=== PATIENT | male | born 1970 | race American Indian/Alaskan Native ===

== ENCOUNTER 2019-07-06 09:26 | Emergency (ER) | payer OTHER ==
[2019-07-06 09:52] VITALS: BP 139/86
--- NOTE | 2019-07-06 13:31 | XRay Report ---
CHEST 2 VIEWS INDICATION: productive cough, fever 2 weeks. COMPARISON: None. FINDINGS: Support devices: None. Heart: Within normal limits. Lungs/Pleura: No acute air space or interstitial disease. No significant pleural effusion. IMPRESSION: No acute findings. Signer Name: Gus Castano MD Signed: 07/06/2019 1:27 PM Workstation Name: [id number]
--- NOTE | 2019-07-06 14:34 | Emergency Department Report ---
- General Chief Complaint: Upper Respiratory Infection Stated Complaint: FEVER/COUGH Time Seen by Provider: 07/06/19 11:37 Source: patient Mode of arrival: Ambulatory Limitations: No Limitations - History of Present Illness Initial Comments: patient is a 48-year-old male resents to the ED with complaints of a productive cough that began 2 weeks ago. He has associated mucus production. He states that he also has a fever. He states his temperature was 102 last night. He has associated nasal and chest congestion. He denies any sore throat, ear pain, shortness breath, chest pain. he states he took advil today prior to arriving to the emergency room. he states he has been doing home remedies without much relief. he denies any past medical history or allergies medications - Related Data Previous Rx's Medication Instructions Recorded Last Taken Type Azithromycin [Zithromax TAB] 250 mg PO QDAY 5 Days #6 tablet 07/06/19 Unknown Rx Benzonatate [Tessalon Perles] 100 mg PO Q8HR PRN #14 capsule 07/06/19 Unknown Rx Prednisone [predniSONE 10 mg 10 mg PO .TAPER #1 tab.ds.pk 07/06/19 Unknown Rx (6-Day Pack, 21 Tabs)] Allergies Allergy/AdvReac Type Severity Reaction Status Date / Time No Known Allergies Allergy Unverified 07/06/19 09:47 ED Review of Systems ROS: Stated complaint: FEVER/COUGH Other details as noted in HPI Comment: All other systems reviewed and negative ED Past Medical Hx - Past Medical History Previous Medical History?: No - Surgical History Hx Cholecystectomy: Yes - Social History Smoking Status: Never Smoker Substance Use Type: None - Medications Home Medications: Home Medications Medication Instructions Recorded Confirmed Last Taken Type Azithromycin [Zithromax TAB] 250 mg PO QDAY 5 Days #6 tablet 07/06/19 Unknown Rx Benzonatate [Tessalon Perles] 100 mg PO Q8HR PRN #14 capsule 07/06/19 Unknown Rx Prednisone [predniSONE 10 mg 10 mg PO .TAPER #1 tab.ds.pk 07/06/19 Unknown Rx (6-Day Pack, 21 Tabs)] ED Physical Exam - General Limitations: No Limitations General appearance: alert, in no apparent distress - Head Head exam: Present: atraumatic, normocephalic - Eye Eye exam: Present: normal appearance - ENT ENT exam: Present: normal orophraynx, mucous membranes moist, TM's normal bilaterally, normal external ear exam, other (normal turbaintes bilaterally) - Respiratory Respiratory exam: Present: decreased breath sounds (slightly decreased right lung base). Absent: respiratory distress, wheezes, rales, rhonchi, stridor, chest wall tenderness, accessory muscle use, prolonged expiratory - Cardiovascular Cardiovascular Exam: Present: regular rate, normal rhythm, normal heart sounds. Absent: systolic murmur, diastolic murmur, rubs, gallop - Neurological Exam Neurological exam: Present: alert, oriented X3 - Psychiatric Psychiatric exam: Present: normal affect, normal mood - Skin Skin exam: Present: warm, dry, intact ED Course Vital Signs 07/06/19 09:50 Temperature 99.1 F Pulse Rate 72 Respiratory 18 Rate Blood Pressure 139/86 [Right] O2 Sat by Pulse 98 Oximetry ED Medical Decision Making - Radiology Data Radiology results: report reviewed CHEST 2 VIEWS INDICATION: productive cough, fever 2 weeks. COMPARISON: None. FINDINGS: Support devices: None. Heart: Within normal limits. Lungs/Pleura: No acute air space or interstitial disease. No significant pleural effusion. IMPRESSION: No acute findings. Signer Name: Gus Castano MD Signed: 07/06/2019 1:27 PM Workstation Name: [id number] Transcribed By: ES Dictated By: Gus Castano MD Electronically Authenticated By: Gus Castano MD Signed Date/Time: 07/06/19 132 DD/ 1326 TD/TT: - Medical Decision Making patient is a 48-year-old male resents to the ED with complaints of a productive cough that began 2 weeks ago. He has associated mucus production. He states that he also has a fever. He states his temperature was 102 last night. He has associated nasal and chest congestion. He denies any sore throat, ear pain, shortness breath, chest pain. he states he took advil today prior to arriving to the emergency room. he states he has been doing home remedies without much relief. he denies any past medical history or allergies medications. VSS. on exam: slightly decreased breath sounds right lung base. CXR: No acute findings. PERC criteria negative for PE. Given that he has had a productive cough and fever for 2 weeks and has slightly decreased breath sounds in the right lung base will treat patient for an acute bronchitis. Given prescription for azithromycin, prednisone, and tessalon perles. advised pt to take medication as prescribed. Please increase your fluid intake over the next several days. Follow-up with a primary care doctor in the next 2-3 days. Return to the emergency room for any new or worsening symptoms. - Differential Diagnosis PNA, URI, acute bronchitis, influenza, viral syndrome, sinusitis Critical care attestation.: If time is entered above; I have spent that time in minutes in the direct care of this critically ill patient, excluding procedure time. ED Disposition Clinical Impression: Acute bronchitis Qualifiers: Bronchitis organism: unspecified organism Qualified Code(s): J20.9 - Acute bronchitis, unspecified Disposition: DC- TO HOME OR SELFCARE Is pt being admited?: No Does the pt Need Aspirin: No Condition: Stable Instructions: Acute Bronchitis (ED) Additional Instructions: Take medication as prescribed. Please increase your fluid intake over the next several days. Follow-up with a primary care doctor in the next 2-3 days. Return to the emergency room for any new or worsening symptoms. Prescriptions: Prednisone [predniSONE 10 mg (6-Day Pack, 21 Tabs)] 10 mg PO .TAPER #1 tab.ds.pk Benzonatate [Tessalon Perles] 100 mg PO Q8HR PRN #14 capsule PRN Reason: cough Azithromycin [Zithromax TAB] 250 mg PO QDAY 5 Days #6 tablet Referrals: DEMETRIUS MCGEE MD [Staff Physician] - 2-3 Days [facility] [Outside] - 2-3 Days [facility] [Outside] - 2-3 Days Time of Disposition: 14:34 Print Language: TURKISH
== END 2019-07-06 15:02 | disposition home or self-care (01) ==
LOC: ED 09:26
DX: J20.8 Acute bronchitis due to other specified organisms (principal); Z90.49 Acquired absence of other specified parts of digestive tract; Z79.899 Other long term (current) drug therapy
CPT/HCPCS: 71046

== ENCOUNTER 2019-07-10 | Emergency (ER) | payer OTHER ==
[2019-07-10] MEDS ORDERED: ONDANSETRON 4 MG/2 ML INJ IV ONE (01:46)
[2019-07-10] MEDS ORDERED: MORPHINE 4 MG/1 ML INJ IV ONE ×2 (01:46→03:13)
--- NOTE | 2019-07-10 01:49 | Emergency Department Report ---
ED Chest Pain HPI - General Chief Complaint: Sickle Cell Crisis Stated Complaint: CHEST/SICKLE CELL PAIN Time Seen by Provider: 07/10/19 01:40 Source: patient Mode of arrival: Ambulatory Limitations: No Limitations - History of Present Illness Initial Comments: Mr. Mendoza is a 48 yo male with hx of sickle cell trait and alpha thalassemia "" who presents with chest pain for the past 3 hours. Sharp pain central. Severe. He feels that pain is caused by the cold temperature. He requests a shot of morphine. He was seen by my colleague recently for productive cough for the past 2 weeks. He was prescribed azithromycin, prednisone and tessalon daniela es. Also has lower back pain. He has infrequent sickle cell pain episodes. "They just come out of the blue." Complaint: chest pain -: Gradual, hour(s) (3) Onset: during rest Pain Location: substernal, left chest Severity: severe Quality: aching, sharp Consistency: constant Improves With: nothing Worsens With: nothing Context: recent illness - Related Data Previous Rx's Medication Instructions Recorded Last Taken Type Azithromycin [Zithromax TAB] 250 mg PO QDAY 5 Days #6 tablet 07/06/19 Unknown Rx Benzonatate [Tessalon Perles] 100 mg PO Q8HR PRN #14 capsule 07/06/19 Unknown Rx Prednisone [predniSONE 10 mg 10 mg PO .TAPER #1 tab.ds.pk 07/06/19 Unknown Rx (6-Day Pack, 21 Tabs)] oxyCODONE /ACETAMINOPHEN [Percocet 1 tab PO Q6HR PRN #10 tablet 07/10/19 Unknown Rx 5/325] Allergies Allergy/AdvReac Type Severity Reaction Status Date / Time No Known Allergies Allergy Verified 07/10/19 03:27 Heart Score - HEART Score History: Slightly suspicious EKG: Normal Age: < 45 Risk factors: No known risk factors Troponin: < normal limit HEART Score: 0 ED Review of Systems ROS: Stated complaint: CHEST/SICKLE CELL PAIN Other details as noted in HPI Comment: All other systems reviewed and negative Constitutional: denies: fever, malaise Respiratory: cough Cardiovascular: chest pain ED Past Medical Hx - Past Medical History Previous Medical History?: Yes Hx Sickle Cell Disease: Yes - Surgical History Past Surgical History?: Yes Hx Cholecystectomy: Yes - Social History Smoking Status: Never Smoker Substance Use Type: None - Medications Home Medications: Home Medications Medication Instructions Recorded Confirmed Last Taken Type Azithromycin [Zithromax TAB] 250 mg PO QDAY 5 Days #6 tablet 07/06/19 Unknown Rx Benzonatate [Tessalon Perles] 100 mg PO Q8HR PRN #14 capsule 07/06/19 Unknown Rx Prednisone [predniSONE 10 mg 10 mg PO .TAPER #1 tab.ds.pk 07/06/19 Unknown Rx (6-Day Pack, 21 Tabs)] oxyCODONE /ACETAMINOPHEN [Percocet 1 tab PO Q6HR PRN #10 tablet 07/10/19 Unknown Rx 5/325] ED Physical Exam - General Limitations: No Limitations General appearance: alert, other (writhing around in the bed in pain) - Head Head exam: Present: atraumatic, normocephalic - Eye Eye exam: Present: normal appearance - ENT ENT exam: Present: mucous membranes moist - Neck Neck exam: Present: normal inspection, full ROM - Respiratory Respiratory exam: Present: normal lung sounds bilaterally. Absent: respiratory distress, wheezes, rales, rhonchi - Cardiovascular Cardiovascular Exam: Present: regular rate, normal rhythm. Absent: systolic murmur, diastolic murmur, rubs, gallop - GI/Abdominal GI/Abdominal exam: Present: soft, normal bowel sounds. Absent: distended, tenderness, guarding, rebound - Rectal Rectal exam: Present: deferred - Extremities Exam Extremities exam: Present: normal inspection - Neurological Exam Neurological exam: Present: alert, oriented X3 - Psychiatric Psychiatric exam: Present: normal affect, normal mood - Skin Skin exam: Present: warm, dry, intact, normal color. Absent: rash ED Course Vital Signs 07/10/19 07/10/19 07/10/19 00:36 02:24 03:00 Temperature 97.7 F Pulse Rate 73 56 L 71 Respiratory 18 13 14 Rate Blood Pressure 165/106 135/92 O2 Sat by Pulse 96 99 96 Oximetry ED Medical Decision Making - Lab Data Result diagrams: 07/10/19 01:11 07/10/19 01:54 - EKG Data EKG shows normal: sinus rhythm, axis, intervals, QRS complexes, ST-T waves Rate: bradycardia - EKG Data Interpretation: normal EKG - Medical Decision Making Mr. Mendoza is a 48 yo with hx of sickle cell disease Hgb presumably alpha thalassemia who presents with persistent sharp chest pain and back pain 10/10. Normal EKG and troponin. Appears to be sickle cell disease pain crisis. Labs notable for mild anemia with elevated reticulocyte count. Mr. Mendoza was provided IV opioid medication and IVF. He declined hospital admission. Dc'd home rx: percocet I do not suspect ACS PE PNA after w/u performed today Critical care attestation.: If time is entered above; I have spent that time in minutes in the direct care of this critically ill patient, excluding procedure time. ED Disposition Clinical Impression: Sickle cell trait with coexistent alpha-thalassemia, Sickle cell pain crisis Disposition: DC- TO HOME OR SELFCARE Is pt being admited?: No Does the pt Need Aspirin: No Condition: Stable Instructions: Chest Pain (ED) Prescriptions: oxyCODONE /ACETAMINOPHEN [Percocet 5/325] 1 tab PO Q6HR PRN #10 tablet PRN Reason: Pain Referrals: DEMETRIUS MCGEE MD [Staff Physician] - 3-5 Days Forms: Work/School Release Form(ED)
[2019-07-10 01:52] LABS: Hematocrit 31.3 % (35.5-45.6); Hemoglobin 10.9 gm/dl (11.8-15.2); Mean Corpuscular HGB Conc 35 % (32-34); Mean Corpuscular Volume 86 fl (84-94); Red Blood Count 3.65 M/mm3 (3.65-5.03); Red Cell Distribution Width 17.7 % (13.2-15.2)
[2019-07-10 02:40] LABS: BUN/Creatinine Ratio 23; Blood Urea Nitrogen 16 mg/dL (9-20); Hemolysis Index 38
[2019-07-10] MEDS ORDERED: HYDROmorphone 1 MG/1 ML INJ IV ONE (03:23)
[2019-07-10 03:54] LABS: Basophils % (Manual) 0 % (0.0-1.8); Eosinophils % (Manual) 0 % (0.0-4.3); Total Cells Counted 100
[2019-07-10 03:55] LABS: Schistocytes Few; Target Cells 1+
[2019-07-10 03:56] LABS: Platelet Estimate Consistent w Auto
[2019-07-10] MEDS ORDERED: D5W/0.2% NACL 1,000 ML IV SCH (04:00)
[2019-07-10 04:15] LABS: Platelet Count 259 K/mm3 (140-440)
[2019-07-10 06:35] VITALS: BP 144/85
== END 2019-07-10 06:34 | disposition home or self-care (01) ==
LOC: ED
DX: D57.419 Sickle-cell thalassemia, unspecified, with crisis (principal); D57.00 Hb-SS disease with crisis, unspecified; Z90.49 Acquired absence of other specified parts of digestive tract; Z79.899 Other long term (current) drug therapy
CPT/HCPCS: 36415; 80048; 84484; 85007; 85025; 85045; 93005; 93010; 96374; 96375; 96376; 99284; J1170; J2270; J2405

== ENCOUNTER 2019-07-11 09:33 | Inpatient (IN) | payer OTHER ==
--- NOTE | 2019-07-11 10:30 | XRay Report ---
CHEST 2 VIEWS INDICATION / CLINICAL INFORMATION: Chest Pain. COMPARISON: 07/06/2019 FINDINGS: SUPPORT DEVICES: None. HEART / MEDIASTINUM: No significant abnormality. LUNGS / PLEURA: There has been development of bilateral mid and lower lung hazy groundglass opacities . No pneumothorax. ADDITIONAL FINDINGS: Unchanged chronic osseous findings in the spine secondary to sickle cell disease . IMPRESSION: 1. Interval development of bilateral mid and lower lung hazy opacities likely indicating developing a typical infectious or inflammatory process. Signer Name: Kavon Nelson MD Signed: 07/11/2019 10:25 AM Workstation Name: [id number]
[2019-07-11 10:59] LABS: Hemoglobin 9.6 gm/dl (11.8-15.2); Mean Corpuscular HGB Conc 36 % (32-34); Mean Corpuscular Volume 83 fl (84-94); Red Blood Count 3.26 M/mm3 (3.65-5.03); Red Cell Distribution Width 18.7 % (13.2-15.2)
[2019-07-11] MEDS ORDERED: SODIUM CHLORIDE 0.9% 1000 ML 1,000 ML IV ONE (11:25)
[2019-07-11 11:26] LABS: BUN/Creatinine Ratio 36; Blood Urea Nitrogen 29 mg/dL (9-20); Calcium 8.9 mg/dL (8.4-10.2); Hemolysis Index 90
[2019-07-11] MEDS ORDERED: SODIUM CHLORIDE 0.9% 1000 ML IV SOLN IV ONE (11:30)
--- NOTE | 2019-07-11 11:33 | Emergency Department Report ---
ED Chest Pain HPI - General Chief Complaint: Chest Pain Stated Complaint: CHEST PAIN Time Seen by Provider: 07/11/19 11:23 Source: patient Mode of arrival: Wheelchair Limitations: No Limitations - History of Present Illness Initial Comments: 48 yo W male comes to ER with chest pain, cough and weakness. The chest pain is sharp and radiates to the back. Endorses chills. No fever. States he does not look at color of sputum. He did take antibiotics given at prior visit but has gotten worse over the last 2 days. Denies SOB. No abd pain. No nausea, vomiting or diarrhea. He was here yesterday and sent home. He also went to [facility] and was d/c. He was here last week -07/06-for URI as well. PCP none PMH SSD- last crisis 15 y ago Rx none mom and dad alive and well denies cig/etoh/drugs BP elevated on admit- denies history of HTN Sat on admit noted- NC for Sat > 92. MD Complaint: chest pain -: Gradual, days(s) Onset: during rest, during exertion Pain Location: substernal Pain Radiation: other (to back ) Severity scale (0 -10): 10 Quality: sharp Consistency: constant Improves With: nothing Worsens With: nothing Other Symptoms: cough, other (chills) Treatments Prior to Arrival: none Aspirin use within the Past 7 Days: (0) No - Related Data On Oral Contraceptives: No Previous Rx's Medication Instructions Recorded Last Taken Type Azithromycin [Zithromax TAB] 250 mg PO QDAY 5 Days #6 tablet 07/06/19 Unknown Rx Benzonatate [Tessalon Perles] 100 mg PO Q8HR PRN #14 capsule 07/06/19 Unknown Rx Prednisone [predniSONE 10 mg 10 mg PO .TAPER #1 tab.ds.pk 07/06/19 Unknown Rx (6-Day Pack, 21 Tabs)] oxyCODONE /ACETAMINOPHEN [Percocet 1 tab PO Q6HR PRN #10 tablet 07/10/19 Unknown Rx 5/325] Allergies Allergy/AdvReac Type Severity Reaction Status Date / Time No Known Allergies Allergy Verified 07/10/19 03:27 Heart Score - HEART Score History: Slightly suspicious EKG: Normal Age: 45-65 Risk factors: No known risk factors Troponin: 1-3x normal limit HEART Score: 2 ED Review of Systems ROS: Stated complaint: CHEST PAIN Other details as noted in HPI Comment: All other systems reviewed and negative ED Past Medical Hx - Past Medical History Previous Medical History?: Yes Hx Hypertension: No Hx CVA: No Hx Heart Attack/AMI: No Hx Congestive Heart Failure: No Hx Diabetes: No Hx Deep Vein Thrombosis: No Hx Pulmonary Embolism: No Hx GERD: No Hx Liver Disease: No Hx Renal Disease: No Hx of Cancer: No Hx Sickle Cell Disease: Yes Hx Arthritis: No Hx Headaches / Migraines: No Hx Seizures: No Hx Kidney Stones: No Hx Psychiatric Treatment: No Hx Asthma: No Hx COPD: No Hx Tuberculosis: No Hx Dementia: No Hx HIV: No - Surgical History Past Surgical History?: Yes Hx Coronary Stent: No Hx Open Heart Surgery: No Hx Pacemaker: No Hx Internal Defibrillator: No Hx Cholecystectomy: Yes Hx Appendectomy: No Hx Breast Surgery: No - Family History Family history: no significant - Social History Smoking Status: Never Smoker Substance Use Type: None - Medications Home Medications: Home Medications Medication Instructions Recorded Confirmed Last Taken Type Azithromycin [Zithromax TAB] 250 mg PO QDAY 5 Days #6 tablet 07/06/19 07/11/19 Unknown Rx Benzonatate [Tessalon Perles] 100 mg PO Q8HR PRN #14 capsule 07/06/19 07/11/19 Unknown Rx Prednisone [predniSONE 10 mg 10 mg PO .TAPER #1 tab.ds.pk 07/06/19 07/11/19 Unknown Rx (6-Day Pack, 21 Tabs)] oxyCODONE /ACETAMINOPHEN [Percocet 1 tab PO Q6HR PRN #10 tablet 07/10/19 07/11/19 Unknown Rx 5/325] ED Physical Exam - General Limitations: No Limitations General appearance: alert, in no apparent distress - Head Head exam: Present: atraumatic, normocephalic - Eye Eye exam: Present: normal appearance - ENT ENT exam: Present: mucous membranes moist - Neck Neck exam: Present: normal inspection - Respiratory Respiratory exam: Present: normal lung sounds bilaterally, wheezes (mild lower lobes), rhonchi (clear with cough). Absent: respiratory distress, stridor, chest wall tenderness, accessory muscle use, decreased breath sounds, prolonged expiratory - Cardiovascular Cardiovascular Exam: Present: regular rate, normal rhythm, tachycardia. Absent: systolic murmur, diastolic murmur, rubs, gallop - GI/Abdominal GI/Abdominal exam: Present: soft, normal bowel sounds - Rectal Rectal exam: Present: deferred - Extremities Exam Extremities exam: Present: normal inspection - Back Exam Back exam: Present: normal inspection - Neurological Exam Neurological exam: Present: alert, oriented X3 - Psychiatric Psychiatric exam: Present: normal affect, flat affect - Skin Skin exam: Present: warm, dry, intact, pallor. Absent: rash ED Course Vital Signs 07/11/19 07/11/19 07/11/19 09:40 11:46 12:00 Temperature 98.1 F Pulse Rate 79 81 86 Respiratory 22 29 H 40 H Rate Blood Pressure 157/109 157/115 Blood Pressure 167/102 [Right] O2 Sat by Pulse 89 83 L 81 L Oximetry 07/11/19 07/11/19 07/11/19 12:16 12:17 12:18 Temperature 98.6 F Pulse Rate 78 Respiratory 37 H 30 H Rate Blood Pressure 157/115 Blood Pressure [Right] O2 Sat by Pulse 94 6 L Oximetry 07/11/19 07/11/19 07/11/19 12:46 13:46 14:09 Temperature Pulse Rate 86 98 H Respiratory 35 H 22 26 H Rate Blood Pressure 157/115 156/120 Blood Pressure [Right] O2 Sat by Pulse 92 98 Oximetry JONAS score - Jonas Score Age > 65: (0) No Aspirin use within the Past 7 Days: (0) No 3 or more CAD Risk Factors: (0) No 2 or more Angina events in past 24 hrs: (0) No Known CAD with more than 50% Stenosis: (0) No Elevated Cardiac Markers: (1) Yes ST Deviation Greater than 0.5mm: (0) No JONAS Score: 1 ED Medical Decision Making - Lab Data Result diagrams: 07/11/19 09:58 07/11/19 12:15 - EKG Data -: EKG Interpreted by Wy Rate: tachycardia - EKG Data Interpretation: no acute changes - Radiology Data Radiology results: report reviewed, image reviewed - Medical Decision Making Vital Signs 07/11/19 07/11/19 07/11/19 09:40 11:46 12:00 Temperature 98.1 F Pulse Rate 79 81 86 Respiratory 22 29 H 40 H Rate Blood Pressure 157/109 157/115 Blood Pressure 167/102 [Right] O2 Sat by Pulse 89 83 L 81 L Oximetry 07/11/19 07/11/19 12:17 12:18 Temperature 98.6 F Pulse Rate Respiratory 30 H Rate Blood Pressure Blood Pressure [Right] O2 Sat by Pulse 6 L Oximetry Lab Results 07/11/19 07/11/19 Range/Units 09:58 09:58 WBC 15.9 H (4.5-11.0) K/mm3 RBC 3.26 L (3.65-5.03) M/mm3 Hgb 9.6 L (11.8-15.2) gm/dl Hct 27.0 L (35.5-45.6) % MCV 83 L (84-94) fl MCH 29 (28-32) pg MCHC 36 H (32-34) % RDW 18.7 H (13.2-15.2) % Plt Count 158 (140-440) K/mm3 Add Manual Diff Complete Total Counted 100 Seg Neuts % (Manual) 71.0 H (40.0-70.0) % Band Neutrophils % 1.0 % Lymphocytes % (Manual) 19.0 (13.4-35.0) % Reactive Lymphs % (Man) 0 % Monocytes % (Manual) 6.0 (0.0-7.3) % Eosinophils % (Manual) 0 (0.0-4.3) % Basophils % (Manual) 0 (0.0-1.8) % Metamyelocytes % 3.0 % Myelocytes % 0 % Promyelocytes % 0 % Blast Cells % 0 % Nucleated RBC % 73.0 H (0.0-0.9) % Seg Neutrophils # Man 13.3 H (1.8-7.7) K/mm3 Band Neutrophils # 0.2 K/mm3 Lymphocytes # (Manual) 3.6 (1.2-5.4) K/mm3 Abs React Lymphs (Man) 0.0 K/mm3 Monocytes # (Manual) 1.1 H (0.0-0.8) K/mm3 Eosinophils # (Manual) 0.0 (0.0-0.4) K/mm3 Basophils # (Manual) 0.0 (0.0-0.1) K/mm3 Metamyelocytes # 0.6 K/mm3 Myelocytes # 0.0 K/mm3 Promyelocytes # 0.0 K/mm3 Blast Cells # 0.0 K/mm3 Pathologist Review Not Reportable WBC Morphology Not Reportable Hypersegmented Neuts Not Reportable Hyposegmented Neuts Not Reportable Hypogranular Neuts Not Reportable Smudge Cells Not Reportable Toxic Granulation Not Reportable Toxic Vacuolation Not Reportable Dohle Bodies Not Reportable Pelger-Huet Anomaly Not Reportable [place] Rods Not Reportable Platelet Estimate Consistent w auto Clumped Platelets Not Reportable Plt Clumps, EDTA Not Reportable Large Platelets Not Reportable Giant Platelets Rare Platelet Satelliting Not Reportable Plt Morphology Comment Not Reportable RBC Morphology Not Reportable Dimorphic RBCs Not Reportable Polychromasia Few Hypochromasia Not Reportable Poikilocytosis 2+ Anisocytosis 2+ Microcytosis Few Macrocytosis Not Reportable Spherocytes Not Reportable Pappenheimer Bodies Not Reportable Sickle Cells [employer] Target Cells 1+ Tear Drop Cells Not Reportable Ovalocytes Not Reportable Helmet Cells Not Reportable [place] Bodies Not Reportable [place] Rings Not Reportable Trey Cells Not Reportable Bite Cells Not Reportable Crenated Cell Not Reportable Elliptocytes Not Reportable Acanthocytes (Spur) Not Reportable Rouleaux Not Reportable Hemoglobin C Crystals Not Reportable Schistocytes Few Malaria parasites Not Reportable Zeke Bodies Not Reportable Hem Pathologist Commnt No Sodium 137 (137-145) mmol/L Potassium 4.0 (3.6-5.0) mmol/L Chloride 100.0 (98-107) mmol/L Carbon Dioxide 19 L D (22-30) mmol/L Anion Gap 22 mmol/L BUN 29 H (9-20) mg/dL Creatinine 0.8 (0.8-1.5) mg/dL Estimated GFR > 60 ml/min BUN/Creatinine Ratio 36 % Glucose 132 H (75-100) mg/dL Calcium 8.9 (8.4-10.2) mg/dL Troponin T 0.032 H D (0.00-0.029) ng/mL Triglycerides 147 (2-149) mg/dL Cholesterol 113 (50-199) mg/dL LDL Cholesterol Direct 44 L (50-130) mg/dL HDL Cholesterol 47 (40-59) mg/dL Cholesterol/HDL Ratio 2.40 % Staffed with Dr Montiel. xray noted- interval change noted Labs noted lactate noted trop noted elevated Sepsis protocol for PNA CAP Fluid resc.per protocol duoneb sputum induction ordered Sat is increasing on NC Will admit for further evaluation 1400 pt became restless. Sat 90. had just finished duoneb. HR inc. room was warm. at bedside ABG ordered. CTA ordered. Pt and family updated on plan of care- will admit for further evaluation. - Differential Diagnosis SSC/ ro acs/ ro pna/ ro dissection of ao Critical care attestation.: If time is entered above; I have spent that time in minutes in the direct care of this critically ill patient, excluding procedure time. ED Disposition Clinical Impression: Sickle cell pain crisis, Pneumonia, Elevated troponin, Sepsis Disposition: DC-09 OP ADMIT IP TO THIS HOSP Is pt being admited?: Yes Does the pt Need Aspirin: No Condition: Stable Time of Disposition: 12:55
[2019-07-11] MEDS: HYDROmorphone 1 MG/1 ML INJ IV PRN (11:35)
[2019-07-11 11:49] LABS: Band Neutrophils # (Manual) 0.2 K/mm3; Basophils % (Manual) 0 % (0.0-1.8); Eosinophils % (Manual) 0 % (0.0-4.3); Total Cells Counted 100
[2019-07-11 11:58] LABS: Anisocytosis 2+; Poikilocytosis 2+; Schistocytes Few; Target Cells 1+
[2019-07-11 12:00] LABS: HDL Cholesterol 47 mg/dL (40-59); LDL Cholesterol,Direct 44 mg/dL (50-130)
[2019-07-11 12:02] LABS: Giant Platelets Rare; Platelet Estimate Consistent w Auto
[2019-07-11 12:09] LABS: Platelet Count 158 K/mm3 (140-440)
[2019-07-11] MEDS: cefTRIAXone/NS 2 GM/100 ML 2 GM/100 ML BAG IV SCH (12:31)
[2019-07-11] MEDS ORDERED: IPRATROPIUM/ALBUTEROL SULFATE 3 ML AMPUL.NEB IH ONE (12:50)
[2019-07-11] MEDS: AZITHROMYCIN 500 MG in SODIUM CHLORIDE 0.9% 250ML 250 ML IV SCH (13:14)
[2019-07-11 13:29] LABS: Alanine Aminotransferase 49 units/L (7-56); Albumin 3.8 g/dL (3.9-5); BUN/Creatinine Ratio 34; Blood Urea Nitrogen 31 mg/dL (9-20); Calcium 8.6 mg/dL (8.4-10.2); Hemolysis Index 90
[2019-07-11 13:58] LABS: Amorphous Crystals,Urine Few; Bilirubin,Urine NEG (Negative); Blood,Urine MOD (Negative); Mucus,Urine FEW /HPF; Urobilinogen,Urine < 2.0 mg/dL (<2.0)
[2019-07-11 13:59] LABS: Color,Urine Brown (Yellow)
[2019-07-11] MEDS ORDERED: MORPHINE 2 MG/1 ML INJ IV ONE (14:05)
[2019-07-11] MEDS ORDERED: ACETAMINOPHEN 500 MG TAB PO ONE (14:05)
--- NOTE | 2019-07-11 14:46 | History and Physical Report ---
History of Present Illness Chief complaint: I feel sick History of present illness: 48-year-old male with sickle cell disease presents to ED for evaluation. Patient states that he had experienced nonproductive cough over the past 2 days. Patient re-presents to [facility] emergency department after be ing seen and evaluated on the day prior for similar symptoms and subsequently discharged home. Patient re-presents with worsening symptoms and failed outpatient therapy. Patient states that persistent coughing has resulted in chest discomfort as well as generalized weakness. Patient transported to [facility] ED via private vehicle for further care and evaluation. Patient seen and evaluated in the emergency department and found to have sepsis, acidosis, bilateral lower no lobe pneumonia. Patient initiated on sepsis protocol and admitted to medical floor for further treatment and reevaluation due to high risk for decompensation. Patient denies fever, chills, chest pain, palpitations, bright red blood per rectum, skin rash, unilateral leg swelling, calf pain, prolonged travel/immobility, hemoptysis, individual/family history of DVT/PE/bleeding. No prior admission for review. All listed medication reconciled at time of admission. Hematology service consulted. Past History Past Medical History: other (Sickle cell disease) Past Surgical History: cholecystectomy Social history: , lives with family. denies: smoking, alcohol abuse Family history: hypertension, other (Sickle cell disease) Medications and Allergies Allergies Allergy/AdvReac Type Severity Reaction Status Date / Time No Known Allergies Allergy Verified 07/10/19 03:27 Home Medications Medication Instructions Recorded Confirmed Last Taken Type Azithromycin [Zithromax TAB] 250 mg PO QDAY 5 Days #6 tablet 07/06/19 07/11/19 Unknown Rx Benzonatate [Tessalon Perles] 100 mg PO Q8HR PRN #14 capsule 07/06/19 07/11/19 Unknown Rx Prednisone [predniSONE 10 mg 10 mg PO .TAPER #1 tab.ds.pk 07/06/19 07/11/19 Unknown Rx (6-Day Pack, 21 Tabs)] oxyCODONE /ACETAMINOPHEN [Percocet 1 tab PO Q6HR PRN #10 tablet 07/10/19 07/11/19 Unknown Rx 5/325] Active Meds: Active Medications Hydromorphone HCl (Dilaudid) 0.5 mg IV Q4H PRN PRN Reason: Pain , Severe (7-10) Last Admin: 07/11/19 11:35 Dose: 0.5 mg Documented by: Azithromycin 500 mg/ Sodium (Chloride) 250 mls @ 250 mls/hr IV Q24H [facility]; Protocol Last Admin: 07/11/19 13:14 Dose: 250 mls/hr Documented by: Ceftriaxone Sodium (Rocephin/Ns 2 Gm/100 Ml) 2 gm in 100 mls @ 200 mls/hr IV Q24HR [facility]; Protocol Last Admin: 07/11/19 12:31 Dose: 200 mls/hr Documented by: Review of Systems Constitutional: weakness, malaise, no weight loss, no weight gain Ears, nose, mouth and throat: no ear pain, no tinnitis, no decreased hearing, no nasal congestion, no nasal discharge Cardiovascular: no chest pain, no orthopnea, no rapid/irregular heart beat, no lightheadedness, no shortness of breath Respiratory: cough, no hemoptysis, no shortness of breath, no dyspnea on exertion Gastrointestinal: no abdominal pain, no nausea, no vomiting, no diarrhea, no constipation Genitourinary Male: no flank pain, no discharge, no urinary frequency, no urinary hesitancy Rectal: no pain, no incontinence, no bleeding Musculoskeletal: no neck stiffness, no neck pain, no arm numbness/tingling Integumentary: no rash, no redness, no wounds, no jaundice Neurological: no paralysis, no weakness, no numbness, no seizures, no tremors Psychiatric: no memory loss, no change in sleep habits, no insomnia, no change in libido Endocrine: no heat intolerance, no polyuria, no nocturia Hematologic/Lymphatic: no easy bruising Allergic/Immunologic: no urticaria, no allergic rhinitis Exam - Constitutional Vitals: Temp Pulse Resp BP Pulse Ox 98.6 F 98 H 26 H 156/120 98 07/11/19 12:17 07/11/19 13:46 07/11/19 14:09 07/11/19 13:46 07/11/19 13:46 General appearance: Present: mild distress - EENT Eyes: Present: PERRL ENT: hearing intact, clear oral mucosa - Neck Neck: Present: supple, normal ROM - Respiratory Respiratory effort: normal Respiratory: bilateral: CTA - Cardiovascular Heart Sounds: Present: S1 & S2. Absent: rub, click - Extremities Extremities: pulses symmetrical, No edema Peripheral Pulses: within normal limits - Abdominal General gastrointestinal: Present: soft, non-tender, non-distended, normal bowel sounds Male genitourinary: Present: normal - Integumentary Integumentary: Present: clear, warm, dry - Musculoskeletal Musculoskeletal: gait normal, strength equal bilaterally - Psychiatric Psychiatric: appropriate mood/affect, intact judgment & insight - Neurologic Neurologic: CNII-XII intact, moves all extremities Results - Labs CBC & Chem 7: 07/11/19 16:04 07/11/19 20:18 Labs: Abnormal lab results 07/11/19 07/11/19 07/11/19 Range/Units 09:58 09:58 12:15 WBC 15.9 H (4.5-11.0) K/mm3 RBC 3.26 L (3.65-5.03) M/mm3 Hgb 9.6 L (11.8-15.2) gm/dl Hct 27.0 L (35.5-45.6) % MCV 83 L (84-94) fl MCHC 36 H (32-34) % RDW 18.7 H (13.2-15.2) % Seg Neuts % (Manual) 71.0 H (40.0-70.0) % Nucleated RBC % 73.0 H (0.0-0.9) % Seg Neutrophils # Man 13.3 H (1.8-7.7) K/mm3 Monocytes # (Manual) 1.1 H (0.0-0.8) K/mm3 Percent Retic (0.78-2.58) % Carbon Dioxide 19 L D (22-30) mmol/L BUN 29 H (9-20) mg/dL Glucose 132 H (75-100) mg/dL Lactic Acid (0.7-2.0) mmol/L Total Bilirubin (0.1-1.2) mg/dL AST (5-40) units/L Alkaline Phosphatase (35-129) units/L Troponin T 0.032 H D 0.062 H D (0.00-0.029) ng/mL Albumin (3.9-5) g/dL LDL Cholesterol Direct 44 L (50-130) mg/dL 07/11/19 07/11/19 07/11/19 Range/Units 12:15 12:15 12:15 WBC (4.5-11.0) K/mm3 RBC (3.65-5.03) M/mm3 Hgb (11.8-15.2) gm/dl Hct (35.5-45.6) % MCV (84-94) fl MCHC (32-34) % RDW (13.2-15.2) % Seg Neuts % (Manual) (40.0-70.0) % Nucleated RBC % (0.0-0.9) % Seg Neutrophils # Man (1.8-7.7) K/mm3 Monocytes # (Manual) (0.0-0.8) K/mm3 Percent Retic 3.86 H (0.78-2.58) % Carbon Dioxide 18 L (22-30) mmol/L BUN 31 H (9-20) mg/dL Glucose 114 H (75-100) mg/dL Lactic Acid 2.70 H* (0.7-2.0) mmol/L Total Bilirubin 3.30 H (0.1-1.2) mg/dL AST 224 H (5-40) units/L Alkaline Phosphatase 416 H (35-129) units/L Troponin T (0.00-0.029) ng/mL Albumin 3.8 L (3.9-5) g/dL LDL Cholesterol Direct (50-130) mg/dL Assessment and Plan - Patient Problems (1) Sepsis Current Visit: Yes Status: Acute Plan to address problem: Sepsis protocol: IV antibiotic therapy, IV fluid resuscitation therapy, serial lactic acid, CBC, CMP, monitor urine output every shift, maintain mean arterial pressure greater than or equal to 65, blood culture, HIV, LDH, (2) Pneumonia Current Visit: Yes Status: Acute Qualifiers: Laterality: bilateral Lung location: lower lobe of lung Plan to address problem: Pneumonia protocol: IV antibiotic therapy, supplemental oxygen, nebulizer therapy, pulse oximetry, chest x-ray, blood culture, CBC, CMP. (3) Elevated troponin Current Visit: Yes Status: Acute Plan to address problem: Serial cardiac enzymes, EKG, cardiology consulted in ED, echocardiogram. No EKG changes. No evidence of ischemia on EKG. (4) Sickle cell trait with coexistent alpha-thalassemia Current Visit: No Status: Acute Plan to address problem: Hematology consulted, IV fluid resuscitation therapy, supportive care. (5) DVT prophylaxis Current Visit: Yes Status: Acute Plan to address problem: SCD to bilateral lower extremities while in bed, supportive care. Patient is ambulatory
[2019-07-11] MEDS ORDERED: ONDANSETRON 4 MG/2 ML INJ IV PRN (14:59)
--- NOTE | 2019-07-11 15:36 | Cat Scan Report ---
CT CHEST WITH IV CONTRAST INDICATION: MAIN: chest pain , DIFFICULTY BREATHING . COMPARISON: Chest radiograph earlier the same day. TECHNIQUE: All CT scans at this location are performed using CT dose reduction for ALARA by means of automated e xposure control. Axial CT images were obtained through the chest after IV contrast. FINDINGS: Upper Abdomen: No acute findings. The spleen is small with calcification. Skeletal System: Patchy sclerosis is seen throughout the included skeletal system. Vertebral bodies h ave an abnormal configuration. These findings are consistent with sickle cell disease. There is mild right femoral head osteonecrosis. Chest: Great Vessels: No acute abnormality. Heart: Mildly enlarged. Mediastinum & Clara: No significant abnormality. Lungs: Within both lungs, there are predominantly perihilar/peribronchovascular consolidative changes . Some of the areas of peribronchovascular consolidation are somewhat nodular (as seen in the lateral left upper lung near the apex.) Pleura: No significant pleural effusion. No pneumothorax. Additional Findings: None. IMPRESSION: 1. Somewhat patchy predominantly peribronchovascular/perihilar consolidative changes in both lungs. T his is concerning for lower airways disease/bronchiolitis. Early pneumonia cannot be excluded. 2. Chronic changes of sickle cell disease, as above. Signer Name: Navjot Ramírez MD Signed: 07/11/2019 3:32 PM Workstation Name: [id number]
[2019-07-11 16:25] LABS: Hematocrit 26.3 % (35.5-45.6); Hemoglobin 8.7 gm/dl (11.8-15.2); Mean Corpuscular HGB Conc 33 % (32-34); Mean Corpuscular Volume 87 fl (84-94); Red Blood Count 3.02 M/mm3 (3.65-5.03); Red Cell Distribution Width 19.5 % (13.2-15.2)
[2019-07-11 16:52] LABS: BUN/Creatinine Ratio TNR; Blood Urea Nitrogen TNR mg/dL (9-20)
[2019-07-11 16:53] LABS: Calcium TNR mg/dL (8.4-10.2); Hemolysis Index TNR
[2019-07-11 17:20] LABS: Anisocytosis 2+; Band Neutrophils # (Manual) 0.5 K/mm3; Basophils % (Manual) 0 % (0.0-1.8); Giant Platelets 1+; Poikilocytosis 2+; Schistocytes 1+; Target Cells 1+; Total Cells Counted 100
[2019-07-11 17:21] LABS: Platelet Clumps 1+
[2019-07-11 18:19] LABS: Platelet Count 138 K/mm3 (140-440)
[2019-07-11] MEDS ORDERED: SODIUM BICARB 8.4% 50 MEQ/50 ML SYRINGE IV ONE ×2 (19:00→19:30)
[2019-07-11] MEDS ORDERED: hydrALAZINE 20 MG/1 ML INJ ONE ×2 (20:33→23:11)
[2019-07-11] MEDS ORDERED: VANCOMYCIN/NS 1 GM/250 ML 1 GM/250 ML BAG IV ONE (20:38)
[2019-07-11] MEDS: hydrALAZINE 20 MG/1 ML INJ IV PRN (20:40)
[2019-07-11 20:50] LABS: Alanine Aminotransferase 47 units/L (7-56); Albumin 3.6 g/dL (3.9-5); BUN/Creatinine Ratio 28; Blood Urea Nitrogen 25 mg/dL (9-20); Calcium 8.3 mg/dL (8.4-10.2); Hemolysis Index 49
[2019-07-11 22:14] LABS: ABG Base Excess 0.2 mmol/L (-2.0-3.0); ABG HCO3 23.2 mmol/L (20.0-26.0); ABG Methemoglobin 1.2 % (0.0-1.5); ABG Oxygen Saturation 97.5 % (95.0-99.0); ABG PH 7.491 pH Units (7.350-7.450); ABG PO2 89.2 mm Hg (80.0-90.0)
[2019-07-11] MEDS: ACETAMINOPHEN 325 MG TAB PO PRN (23:59)
[2019-07-12] MEDS: ACETAMINOPHEN 325 MG TAB PO PRN ×3 (06:05→19:50)
[2019-07-12 06:31] LABS: Hemoglobin 8.3 gm/dl (11.8-15.2); Mean Corpuscular HGB Conc 36 % (32-34); Mean Corpuscular Volume 82 fl (84-94); Red Blood Count 2.81 M/mm3 (3.65-5.03)
[2019-07-12 06:49] LABS: Alanine Aminotransferase 42 units/L (7-56); Albumin 3.2 g/dL (3.9-5); BUN/Creatinine Ratio 31; Blood Urea Nitrogen 22 mg/dL (9-20); Calcium 8.4 mg/dL (8.4-10.2); Hemolysis Index 32
--- NOTE | 2019-07-12 08:03 | Event Note ---
Date: 07/12/19 h/o sickle pt from [facility] pt says hb - ??? says gets pain crisis q 5 years high troponin bili and retic high notes mention - alpha thal and sickle trait [id number]
[2019-07-12] MEDS: HYDROmorphone 1 MG/1 ML INJ IV PRN ×3 (08:21→21:45)
[2019-07-12 09:09] LABS: Iron 67 ug/dL (49-181); Total Iron Binding Capacity 222 mcg/dL (250-450)
[2019-07-12] MEDS: FOLIC ACID 1 MG TAB PO SCH (09:42)
--- NOTE | 2019-07-12 09:53 | Consultation ---
REFERRING PHYSICIAN: Dr. Khan. REASON FOR CONSULTATION: Sickle cell disease. HISTORY OF PRESENT ILLNESS: I saw the patient, a 48-year-old male from [facility] in the hospital. The patient states that he has sickle disease, but he says that his hemoglobin (trait). The patient has been in [place] for about 20 years. He lives with his and kids. He does not smoke. He says that he gets sickle cell pain issues once every 5 to 6 years. He came to the hospital because of cough, fever. He was in the ER and discharged. He came back because of weakness, was being treated for sepsis, pneumonia. No headache, no visual disturbance. Has history of chest pain, no abdominal pain, no vomiting, no diarrhea, no fever. No seizure or syncope. No loss of consciousness. PAST MEDICAL HISTORY: Sickle cell issues. The patient states hemoglobin , we will look into same. The patient does not have a explosive ordnance specialist. PAST SURGICAL HISTORY: Cholecystectomy. SOCIAL HISTORY: , lives with family members. No history of tobacco or alcohol usage. FAMILY HISTORY: Hypertension. ALLERGIES: None. HOME MEDICATIONS: Include recent Zithromax, prednisone. During this hospital, the patient has been placed on pain medications, antibiotics. PHYSICAL EXAMINATION: VITAL SIGNS: Temperature 100.2, pulse 94, respirations 20, and BP 164/98. HEENT: Pallor present. Icterus present. NECK: No neck lymph nodes. HEART: S1, S2. LUNGS: Clear to auscultation. ABDOMEN: Soft. EXTREMITIES: No calf tenderness. LABORATORY DATA: White cells 17, hemoglobin 8.3, MCV 82, platelet pending from today; yesterday was 138. Retic percentage 3.8. Potassium 3.2, creatinine 0.7, calcium 8.4, bilirubin was 3.3, AST 199, and troponin 0.846. RADIOLOGY: CT chest was done. Chest x-ray was done. This shows patchy peribronchial consolidative changes, bronchiolitis, possible pneumonia cannot be excluded. Chronic changes of sickle cell disease with patchy sclerosis throughout the skeletal system. There is mild right femoral head osteonecrosis. ASSESSMENT AND PLAN: 1. Anemia with radiological changes for sickle changes. The patient has hemoglobin but probably this is more than that this may be SS or other form. We will do hemoglobin electrophoresis. 2. Pain issues, on pain medications. 3. Fever issues, on antibiotics. 4. Hydration will help the patient. 5. We will start folic acid. 6. The patient states that his pain is sickle cell crisis. This is very infrequent, once every 5 years. Once this crisis improves, outpatient discussion regarding need or option for Hydrea can be done. 7. Elevated troponin. 8. 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 We will try to get more information for same. JOB# [id number] NM/NTS
[2019-07-12] MEDS: cefTRIAXone/NS 2 GM/100 ML 2 GM/100 ML BAG IV SCH (09:57)
[2019-07-12 10:18] LABS: Basophils % (Manual) 0 % (0.0-1.8); Eosinophils % (Manual) 0 % (0.0-4.3); Total Cells Counted 100
[2019-07-12 10:21] LABS: Band Neutrophils # (Manual) 1.1 K/mm3
[2019-07-12 10:22] LABS: Anisocytosis 2+; Target Cells 1+
[2019-07-12 10:23] LABS: Hgb C Crystals 2+; Spherocytes Few
[2019-07-12 10:24] LABS: Platelet Estimate Consistent w Auto; Schistocytes Few
[2019-07-12 11:06] LABS: Platelet Count 115 K/mm3 (140-440)
[2019-07-12 11:57] LABS: Amphetamine Screen,Urine PRESUMPTIVE NEGATIVE; Benzodiazepines Screen,Urine PRESUMPTIVE NEGATIVE; Cannabinoid Screen,Urine PRESUMPTIVE NEGATIVE; Cocaine Screen,Urine PRESUMPTIVE NEGATIVE; Methadone Screen,Urine PRESUMPTIVE NEGATIVE; Opiate Screen,Urine PRESUMPTIVE NEGATIVE
[2019-07-12] MEDS: AZITHROMYCIN 500 MG in SODIUM CHLORIDE 0.9% 250ML 250 ML IV SCH (11:57)
[2019-07-12] MEDS: hydrALAZINE 20 MG/1 ML INJ IV PRN (12:20)
--- NOTE | 2019-07-12 13:31 | Consultation ---
History of Present Illness Consult date: 07/12/19 Consult reason: chest pain History of present illness: This is a 48-year old male with no prior cardiac history who presents to this hospital with complaints of chest pain. Cardiac consultation has been requested. Patient reports ongoing chest pain for two days associated with coughs and congestion. Of note, the patient was seen at [facility] and discharged from the emergency department. On presentation, a chest x-ray reports bilateral infiltrates. Laboratory studies shows multiple metabolic abnormalities including a WBC of 17,000, bilirubin at 3.3, HCT of 26 and platelets at 115,000. Cycled troponin trended upwards, currently at 0.51. An ECG is normal sinus rhythm with LVH. No acute ischemic changes. Past History Social history: , lives with family. denies: smoking, alcohol abuse Family history: hypertension, other (Sickle cell disease) Medications and Allergies Allergies Allergy/AdvReac Type Severity Reaction Status Date / Time No Known Allergies Allergy Verified 07/10/19 03:27 Home Medications Medication Instructions Recorded Confirmed Last Taken Type Azithromycin [Zithromax TAB] 250 mg PO QDAY 5 Days #6 tablet 07/06/19 07/11/19 Unknown Rx Benzonatate [Tessalon Perles] 100 mg PO Q8HR PRN #14 capsule 07/06/19 07/11/19 Unknown Rx Prednisone [predniSONE 10 mg 10 mg PO .TAPER #1 tab.ds.pk 07/06/19 07/11/19 Unknown Rx (6-Day Pack, 21 Tabs)] oxyCODONE /ACETAMINOPHEN [Percocet 1 tab PO Q6HR PRN #10 tablet 07/10/19 07/11/19 Unknown Rx 5/325] Active Meds: Active Medications Acetaminophen (Tylenol) 650 mg PO Q4H PRN PRN Reason: Pain MILD(1-3)/Fever >100.5/HARRIS Last Admin: 07/12/19 12:19 Dose: 650 mg Documented by: Albuterol (Proventil) 2.5 mg IH Q4HRT PRN PRN Reason: Shortness Of Breath Folic Acid (Folvite) 1 mg PO QDAY JHON Last Admin: 07/12/19 09:42 Dose: 1 mg Documented by: Hydralazine HCl (Apresoline) 5 mg IV Q4HR PRN PRN Reason: Blood Pressure Last Admin: 07/12/19 12:20 Dose: 5 mg Documented by: Hydromorphone HCl (Dilaudid) 0.5 mg IV Q4H PRN PRN Reason: Pain , Severe (7-10) Last Admin: 07/12/19 08:21 Dose: 0.5 mg Documented by: Azithromycin 500 mg/ Sodium (Chloride) 250 mls @ 250 mls/hr IV Q24H [facility]; Protocol Last Admin: 07/12/19 11:57 Dose: 250 mls/hr Documented by: Ceftriaxone Sodium (Rocephin/Ns 2 Gm/100 Ml) 2 gm in 100 mls @ 200 mls/hr IV Q24HR [facility]; Protocol Last Admin: 07/12/19 09:57 Dose: 200 mls/hr Documented by: Ondansetron HCl (Zofran) 4 mg IV Q8H PRN PRN Reason: Nausea And Vomiting Sodium Chloride (Sodium Chloride Flush Syringe 10 Ml) 10 ml IV BID JHON Last Admin: 07/12/19 09:47 Dose: 10 ml Documented by: Sodium Chloride (Sodium Chloride Flush Syringe 10 Ml) 10 ml IV PRN PRN PRN Reason: LINE FLUSH Physical Examination Vital Signs Temp Pulse Resp BP Pulse Ox 98.1 F 79 22 167/102 89 07/11/19 09:40 07/11/19 09:40 07/11/19 09:40 07/11/19 09:40 07/11/19 09:40 General appearance: no acute distress HEENT: Positive: PERRL Neck: Positive: trachea midline Cardiac: Positive: Reg Rate and Rhythm Lungs: Positive: Normal Breath Sounds Neuro: Positive: Grossly Intact Extremities: Absent: edema Results 07/12/19 06:07 07/12/19 06:07 Cardiac Enzymes 07/11/19 07/11/19 07/12/19 Range/Units 12:15 20:18 06:07 AST 224 H 216 H 199 H (5-40) units/L CBC 07/11/19 07/12/19 Range/Units 16:04 06:07 WBC 17.6 H 15.3 H (4.5-11.0) K/mm3 RBC 3.02 L 2.81 L (3.65-5.03) M/mm3 Hgb 8.7 L 8.3 L (11.8-15.2) gm/dl Hct 26.3 L 23.0 L (35.5-45.6) % Plt Count 138 L 115 L (140-440) K/mm3 Lymph # Property Maintenance Supervisor Emery # Property Maintenance Supervisor Eos # Property Maintenance Supervisor Baso # Property Maintenance Supervisor Comprehensive Metabolic Panel 07/11/19 07/11/19 07/11/19 Range/Units 12:15 16:04 20:18 Sodium 138 TNR 137 (137-145) mmol/L Potassium 3.9 TNR 3.7 (3.6-5.0) mmol/L Chloride 101.6 TNR 101.7 (98-107) mmol/L Carbon Dioxide 18 L TNR 20 L (22-30) mmol/L BUN 31 H TNR 25 H (9-20) mg/dL Creatinine 0.9 TNR 0.9 (0.8-1.5) mg/dL Glucose 114 H TNR 125 H (75-100) mg/dL Calcium 8.6 TNR 8.3 L (8.4-10.2) mg/dL AST 224 H 216 H (5-40) units/L ALT 49 47 (7-56) units/L Alkaline Phosphatase 416 H 428 H (35-129) units/L Total Protein 7.2 7.2 (6.3-8.2) g/dL Albumin 3.8 L 3.6 L (3.9-5) g/dL 07/12/19 Range/Units 06:07 Sodium 139 (137-145) mmol/L Potassium 3.2 L (3.6-5.0) mmol/L Chloride 101.5 (98-107) mmol/L Carbon Dioxide 20 L (22-30) mmol/L BUN 22 H (9-20) mg/dL Creatinine 0.7 L (0.8-1.5) mg/dL Glucose 118 H (75-100) mg/dL Calcium 8.4 (8.4-10.2) mg/dL AST 199 H (5-40) units/L ALT 42 (7-56) units/L Alkaline Phosphatase 350 H (35-129) units/L Total Protein 6.6 (6.3-8.2) g/dL Albumin 3.2 L (3.9-5) g/dL
--- NOTE | 2019-07-12 16:39 | Progress Note ---
Assessment and Plan Assessment and plan: --Hypokalemia; replenish per protocol and monitor levels --Sepsis due to bilateral pneumonia Sepsis protocol: IV antibiotic therapy, IV fluid resuscitation therapy, serial lactic acid, CBC, CMP, monitor urine output every shift, maintain mean arterial pressure greater than or equal to 65, blood culture, HIV, LDH, --Community-acquired Pneumonia Empiric antibiotics with Rocephin and Zithromax, follow cultures. --Leukocytosis; Secondary to pneumonia, treat underlying cause. --Symptomatic Anemia;Stool occult blood, GI evaluation Follow H&H, transfuse as needed, hematology following --Elevated troponin Serial cardiac enzymes, EKG, cardiology consulted in ED, echocardiogram. No EKG changes. No evidence of ischemia on EKG. --Transaminitis; Unknown etiology, closely monitor Hepatitis panel, GI consult if no improvement --Sickle cell trait with coexistent alpha-thalassemia Hematology consulted, IV fluid resuscitation therapy, supportive care. -- DVT prophylaxis SCD to bilateral lower extremities while in bed, supportive care. Patient is ambulatory Data closely and adjust management as needed Disposition; follow cardiology, GI evaluation and recommendations Follow clinically, discharged in medically stable History Interval history: Patient was seen and examined at bedside this morning medical records reviewed Patient complaints of intermittent chest pain Patient has history of sickle cell trait Vital signs noted Hospitalist Physical - Constitutional Vitals: Temp Pulse Resp BP Pulse Ox 100.2 F H 72 18 175/100 96 07/12/19 12:10 07/12/19 12:10 07/12/19 12:10 07/12/19 12:10 07/12/19 13:31 General appearance: Present: no acute distress, well-nourished - EENT Eyes: Present: PERRL, EOM intact - Neck Neck: Present: supple, normal ROM - Respiratory Respiratory effort: normal Respiratory: bilateral: diminished, negative: rales, rhonchi, wheezing - Cardiovascular Rhythm: regular Heart Sounds: Present: S1 & S2 - Extremities Extremities: no ischemia, No edema - Abdominal General gastrointestinal: soft, non-tender, non-distended, normal bowel sounds - Integumentary Integumentary: Present: clear, warm - Psychiatric Psychiatric: appropriate mood/affect, cooperative - Neurologic Neurologic: CNII-XII intact, moves all extremities JONAS score - Jonas Score Age > 65: (0) No Aspirin use within the Past 7 Days: (0) No 3 or more CAD Risk Factors: (0) No 2 or more Angina events in past 24 hrs: (0) No Known CAD with more than 50% Stenosis: (0) No Elevated Cardiac Markers: (1) Yes ST Deviation Greater than 0.5mm: (0) No JONAS Score: 1 Results - Labs CBC & Chem 7: 07/12/19 06:07 07/12/19 06:07 Labs: Laboratory Last Values WBC 15.3 K/mm3 (4.5-11.0) H 07/12/19 06:07 RBC 2.81 M/mm3 (3.65-5.03) L 07/12/19 06:07 Hgb 8.3 gm/dl (11.8-15.2) L 07/12/19 06:07 Hct 23.0 % (35.5-45.6) L 07/12/19 06:07 MCV 82 fl (84-94) L 07/12/19 06:07 MCH 30 pg (28-32) 07/12/19 06:07 MCHC 36 % (32-34) H 07/12/19 06:07 RDW 19.0 % (13.2-15.2) H 07/12/19 06:07 Plt Count 115 K/mm3 (140-440) L 07/12/19 06:07 Lymph % (Auto) [place] 07/11/19 16:04 [place] % (Auto) Grass Farmer 07/11/19 16:04 Eos % (Auto) [place] 07/11/19 16:04 Baso % (Auto) [place] 07/11/19 16:04 Lymph # [place] 07/11/19 16:04 [place] # Grass Farmer 07/11/19 16:04 Eos # [place] 07/11/19 16:04 Baso # [place] 07/11/19 16:04 Add Manual Diff Complete 07/12/19 06:07 Total Counted 100 07/12/19 06:07 Seg Neutrophils % [place] 07/11/19 16:04 Seg Neuts % (Manual) 66.0 % (40.0-70.0) 07/12/19 06:07 Band Neutrophils % 7.0 % 07/12/19 06:07 Lymphocytes % (Manual) 19.0 % (13.4-35.0) 07/12/19 06:07 Reactive Lymphs % (Man) 1.0 % 07/12/19 06:07 Monocytes % (Manual) 7.0 % (0.0-7.3) 07/12/19 06:07 Eosinophils % (Manual) 0 % (0.0-4.3) 07/12/19 06:07 Basophils % (Manual) 0 % (0.0-1.8) 07/12/19 06:07 Metamyelocytes % 0 % 07/12/19 06:07 Myelocytes % 0 % 07/12/19 06:07 Promyelocytes % 0 % 07/12/19 06:07 Blast Cells % 0 % 07/12/19 06:07 Nucleated RBC % 77.0 % (0.0-0.9) H 07/12/19 06:07 Seg Neutrophils # [place] 07/11/19 16:04 Seg Neutrophils # Man 10.1 K/mm3 (1.8-7.7) H 07/12/19 06:07 Band Neutrophils # 1.1 K/mm3 07/12/19 06:07 Lymphocytes # (Manual) 2.9 K/mm3 (1.2-5.4) 07/12/19 06:07 Abs React Lymphs (Man) 0.2 K/mm3 07/12/19 06:07 Monocytes # (Manual) 1.1 K/mm3 (0.0-0.8) H 07/12/19 06:07 Eosinophils # (Manual) 0.0 K/mm3 (0.0-0.4) 07/12/19 06:07 Basophils # (Manual) 0.0 K/mm3 (0.0-0.1) 07/12/19 06:07 Metamyelocytes # 0.0 K/mm3 07/12/19 06:07 Myelocytes # 0.0 K/mm3 07/12/19 06:07 Promyelocytes # 0.0 K/mm3 07/12/19 06:07 Blast Cells # 0.0 K/mm3 07/12/19 06:07 Pathologist Review Not Reportable 07/11/19 09:58 WBC Morphology Not Reportable 07/12/19 06:07 Hypersegmented Neuts Not Reportable 07/12/19 06:07 Hyposegmented Neuts Not Reportable 07/12/19 06:07 Hypogranular Neuts Not Reportable 07/12/19 06:07 Smudge Cells Not Reportable 07/12/19 06:07 Toxic Granulation Not Reportable 07/12/19 06:07 Toxic Vacuolation Not Reportable 07/12/19 06:07 Dohle Bodies Not Reportable 07/12/19 06:07 Pelger-Huet Anomaly Not Reportable 07/12/19 06:07 [place] Rods Not Reportable 07/12/19 06:07 Platelet Estimate Consistent w auto 07/12/19 06:07 Clumped Platelets Not Reportable 07/12/19 06:07 Plt Clumps, EDTA Not Reportable 07/12/19 06:07 Large Platelets Not Reportable 07/12/19 06:07 Giant Platelets Not Reportable 07/12/19 06:07 Platelet Satelliting Not Reportable 07/12/19 06:07 Plt Morphology Comment Not Reportable 07/12/19 06:07 RBC Morphology Not Reportable 07/12/19 06:07 Dimorphic RBCs Not Reportable 07/12/19 06:07 Polychromasia 1+ 07/12/19 06:07 Hypochromasia Not Reportable 07/12/19 06:07 Poikilocytosis Not Reportable 07/12/19 06:07 Anisocytosis 2+ 07/12/19 06:07 Microcytosis 1+ 07/12/19 06:07 Macrocytosis Not Reportable 07/12/19 06:07 Spherocytes Few 07/12/19 06:07 Pappenheimer Bodies Not Reportable 07/12/19 06:07 Sickle Cells Not Reportable 07/12/19 06:07 Target Cells 1+ 07/12/19 06:07 Tear Drop Cells Not Reportable 07/12/19 06:07 Ovalocytes Not Reportable 07/12/19 06:07 Helmet Cells Not Reportable 07/12/19 06:07 [place] Bodies Not Reportable 07/12/19 06:07 [place] Rings Not Reportable 07/12/19 06:07 [place] Cells Not Reportable 07/12/19 06:07 Bite Cells Not Reportable 07/12/19 06:07 Crenated Cell Not Reportable 07/12/19 06:07 Elliptocytes Not Reportable 07/12/19 06:07 Acanthocytes (Spur) Not Reportable 07/12/19 06:07 Rouleaux Not Reportable 07/12/19 06:07 Hemoglobin C Crystals 2+ 07/12/19 06:07 Schistocytes Few 07/12/19 06:07 Malaria parasites Not Reportable 07/12/19 06:07 Percent Retic 3.86 % (0.78-2.58) H 07/11/19 12:15 Zeke Bodies Not Reportable 07/12/19 06:07 Hem Pathologist Commnt No 07/12/19 06:07 ABG pH 7.491 pH Units (7.350-7.450) H 07/11/19 22:00 ABG pCO2 31.0 mm Hg 07/11/19 22:00 ABG pO2 89.2 mm Hg (80.0-90.0) 07/11/19 22:00 ABG HCO3 23.2 mmol/L (20.0-26.0) 07/11/19 22:00 ABG O2 Saturation 97.5 % (95.0-99.0) 07/11/19 22:00 ABG O2 Content 11.6 (0.0-44) 07/11/19 22:00 ABG Base Excess 0.2 mmol/L (-2.0-3.0) 07/11/19 22:00 ABG Hemoglobin 8.7 gm/dl (14.0-18.0) L 07/11/19 22:00 ABG Carboxyhemoglobin 2.0 % (0.0-5.0) 07/11/19 22:00 ABG Methemoglobin 1.2 % (0.0-1.5) 07/11/19 22:00 Oxyhemoglobin 94.4 % (95.0-99.0) L 07/11/19 22:00 FiO2 50 % 07/11/19 22:00 Sodium 139 mmol/L (137-145) 07/12/19 06:07 Potassium 3.2 mmol/L (3.6-5.0) L 07/12/19 06:07 Chloride 101.5 mmol/L (98-107) 07/12/19 06:07 Carbon Dioxide 20 mmol/L (22-30) L 07/12/19 06:07 Anion Gap 21 mmol/L 07/12/19 06:07 BUN 22 mg/dL (9-20) H 07/12/19 06:07 Creatinine 0.7 mg/dL (0.8-1.5) L 07/12/19 06:07 Estimated GFR > 60 ml/min 07/12/19 06:07 BUN/Creatinine Ratio 31 % 07/12/19 06:07 Glucose 118 mg/dL (75-100) H 07/12/19 06:07 Lactic Acid 1.00 mmol/L (0.7-2.0) 07/11/19 20:20 Calcium 8.4 mg/dL (8.4-10.2) 07/12/19 06:07 Iron 67 ug/dL (49-181) 07/12/19 08:28 TIBC 222 mcg/dL (250-450) L 07/12/19 08:28 Total Bilirubin 2.60 mg/dL (0.1-1.2) H 07/12/19 06:07 AST 199 units/L (5-40) H 07/12/19 06:07 ALT 42 units/L (7-56) 07/12/19 06:07 Alkaline Phosphatase 350 units/L (35-129) H 07/12/19 06:07 Ammonia 33.0 umol/L (25-60) 07/11/19 20:11 Troponin T 0.846 ng/mL (0.00-0.029) H* D 07/12/19 06:07 Total Protein 6.6 g/dL (6.3-8.2) 07/12/19 06:07 Albumin 3.2 g/dL (3.9-5) L 07/12/19 06:07 Albumin/Globulin Ratio 0.9 % 07/12/19 06:07 Triglycerides 147 mg/dL (2-149) 07/11/19 09:58 Cholesterol 113 mg/dL (50-199) 07/11/19 09:58 LDL Cholesterol Direct 44 mg/dL (50-130) L 07/11/19 09:58 HDL Cholesterol 47 mg/dL (40-59) 07/11/19 09:58 Cholesterol/HDL Ratio 2.40 % 07/11/19 09:58 Vitamin B12 505.1 pg/mL (211-911) 07/12/19 08:28 Folate 12.25 ng/mL (7.3-26.0) 07/12/19 08:28 Urine Color Brown (Yellow) 07/11/19 Unknown Urine Turbidity Slightly-cloudy (Clear) 07/11/19 Unknown Urine pH 6.0 (5.0-7.0) 07/11/19 Unknown Ur Specific [place] 1.020 (1.003-1.030) 07/11/19 Unknown Urine Protein 100 mg/dl mg/dL (Negative) 07/11/19 Unknown Urine Glucose (UA) 50 mg/dL (Negative) 07/11/19 Unknown Urine Ketones Neg mg/dL (Negative) 07/11/19 Unknown Urine Blood Mod (Negative) 07/11/19 Unknown Urine Nitrite Neg (Negative) 07/11/19 Unknown Urine Bilirubin Neg (Negative) 07/11/19 Unknown Urine Urobilinogen < 2.0 mg/dL (<2.0) 07/11/19 Unknown Ur Leukocyte Esterase Neg (Negative) 07/11/19 Unknown Urine WBC (Auto) 6.0 /HPF (0.0-6.0) 07/11/19 Unknown Urine RBC (Auto) 5.0 /HPF (0.0-6.0) 07/11/19 Unknown U Epithel Cells (Auto) 1.0 /HPF (0-13.0) 07/11/19 Unknown Amorphous Crystals Few 07/11/19 Unknown Urine Mucus Few /HPF 07/11/19 Unknown Urine Opiates Screen Presumptive negative 07/12/19 11:03 Urine Methadone Screen Presumptive negative 07/12/19 11:03 Ur Barbiturates Screen Presumptive negative 07/12/19 11:03 Ur Phencyclidine Scrn Presumptive negative 07/12/19 11:03 Ur Amphetamines Screen Presumptive negative 07/12/19 11:03 U Benzodiazepines Scrn Presumptive negative 07/12/19 11:03 Urine Cocaine Screen Presumptive negative 07/12/19 11:03 U Marijuana (THC) Screen Presumptive negative 07/12/19 11:03 Drugs of Abuse Note Disclamer 07/12/19 11:03 Active Medications - Current Medications Current Medications: Generic Name Dose Route Start Last Admin Trade Name Freq PRN Reason Stop Dose Admin Acetaminophen 650 mg 07/11/19 14:59 07/12/19 12:19 Tylenol PO 650 mg Q4H PRN Administration Pain MILD(1-3)/Fever >100.5/HARRIS Albuterol 2.5 mg 07/11/19 14:59 Proventil IH Q4HRT PRN Shortness Of Breath Folic Acid 1 mg 07/12/19 10:00 07/12/19 09:42 Folvite PO 1 mg QDAY JHON Administration Hydralazine HCl 5 mg 07/11/19 20:21 07/12/19 12:20 Apresoline IV 5 mg Q4HR PRN Administration Blood Pressure Hydromorphone HCl 0.5 mg 07/11/19 11:30 07/12/19 13:37 Dilaudid IV 0.5 mg Q4H PRN Administration Pain , Severe (7-10) Azithromycin 500 mg/ Sodium 250 mls @ 250 mls/hr 07/11/19 12:00 07/12/19 11:57 Chloride IV 250 mls/hr Q24H JHON Administration Protocol Ceftriaxone Sodium 2 gm in 100 mls @ 200 mls/hr 07/11/19 12:00 07/12/19 09:57 Rocephin/Ns 2 Gm/100 Ml IV 200 mls/hr Q24HR JHON Administration Protocol Ondansetron HCl 4 mg 07/11/19 14:59 Zofran IV Q8H PRN Nausea And Vomiting Sodium Chloride 10 ml 07/11/19 22:00 07/12/19 09:47 Sodium Chloride Flush Syringe 10 Ml IV 10 ml BID JHON Administration Sodium Chloride 10 ml 07/11/19 14:59 Sodium Chloride Flush Syringe 10 Ml IV PRN PRN LINE FLUSH
[2019-07-12] MEDS ORDERED: POTASSIUM CHLORIDE ER 20 MEQ TAB PO ONE (20:20)
[2019-07-12] MEDS: ALBUTEROL 2.5 MG/3 ML NEBU IH PRN (21:00)
[2019-07-12] MEDS ORDERED: SODIUM CHLORIDE 0.9% 1000 ML 1,000 ML IV ONE (23:18)
[2019-07-13] MEDS: ALBUTEROL 2.5 MG/3 ML NEBU IH PRN (04:18)
[2019-07-13] MEDS: HYDROmorphone 1 MG/1 ML INJ IV PRN ×3 (05:19→16:19)
[2019-07-13] MEDS: ACETAMINOPHEN 325 MG TAB PO PRN (05:21)
[2019-07-13] MEDS: hydrALAZINE 20 MG/1 ML INJ IV PRN ×2 (05:21→10:24)
[2019-07-13 05:31] LABS: Hematocrit 26.6 % (35.5-45.6); Hemoglobin 9.3 gm/dl (11.8-15.2); Mean Corpuscular HGB Conc 35 % (32-34); Mean Corpuscular Volume 82 fl (84-94); Platelet Count 134 K/mm3 (140-440); Red Blood Count 3.22 M/mm3 (3.65-5.03)
[2019-07-13 05:42] LABS: Red Cell Distribution Width 20.4 % (13.2-15.2)
[2019-07-13 06:06] LABS: Alanine Aminotransferase 37 units/L (7-56); Albumin 3.5 g/dL (3.9-5); BUN/Creatinine Ratio 21; Blood Urea Nitrogen 15 mg/dL (9-20); Calcium 8.7 mg/dL (8.4-10.2); Hemolysis Index 73
[2019-07-13 06:58] LABS: Total Cells Counted 100
[2019-07-13 06:59] LABS: Basophils % (Manual) 0 % (0.0-1.8); Eosinophils % (Manual) 0 % (0.0-4.3)
[2019-07-13 07:00] LABS: Anisocytosis 2+; Target Cells Few
[2019-07-13 07:01] LABS: Platelet Estimate Consistent w Auto; Schistocytes Few; Spherocytes Few
--- NOTE | 2019-07-13 08:01 | Hem/Onc Progress Note ---
Assessment and Plan 1. Anemia with radiological changes for sickle changes. The patient has hemoglobin but probably this is more than that this may be SS or other form. hemoglobin electrophoresis. 2. Pain issues, on pain medications. 3. Fever issues, on antibiotics. 4. Hydration will help the patient. 5. folic acid. 6. The patient states that his pain is sickle cell crisis. This is very infrequent, once every 5 years. Once this crisis improves, outpatient discussion regarding need or option for Hydrea can be done. 7. Elevated troponin. 8. 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 We will try to get more information for same. pt says - does not know about alpha thal pain better - Patient Problems (1) Sickle cell pain crisis Current Visit: Yes Status: Acute Subjective Date of service: 07/13/19 Principal diagnosis: sickle pain Interval history: pain better Objective - Exam Narrative Exam: Pain - better General appearance - awake Performance status limited self care Eyes - no icterus ENT - no bleeding LNs cervical not palpable Neck - no LN Respiratory Normal - on o2 Breath sounds - CTA anteriorly CVS S1 S2 + Extremities no edema General GI Soft Rectal deferred male - deferred Skin warm Musculoskeletal - moves arms and legs Neurologically - awake - Constitutional Vitals: Last Vital Signs Temp 101.8 F H 07/13/19 03:33 Pulse 109 H 07/13/19 05:21 Resp 22 07/13/19 05:19 BP 169/105 07/13/19 05:21 Pulse Ox 97 07/13/19 03:33 - Labs Lab Results: Laboratory Results - last 24 hr 07/12/19 07/12/19 07/12/19 06:07 08:28 08:28 WBC 15.3 H RBC Hgb Hct MCV MCH MCHC RDW Plt Count 115 L Add Manual Diff Complete Total Counted 100 Seg Neuts % (Manual) 66.0 Band Neutrophils % 7.0 Lymphocytes % (Manual) 19.0 Reactive Lymphs % (Man) 1.0 Monocytes % (Manual) 7.0 Eosinophils % (Manual) 0 Basophils % (Manual) 0 Metamyelocytes % 0 Myelocytes % 0 Promyelocytes % 0 Blast Cells % 0 Nucleated RBC % 77.0 H Seg Neutrophils # Man 10.1 H Band Neutrophils # 1.1 Lymphocytes # (Manual) 2.9 Abs React Lymphs (Man) 0.2 Monocytes # (Manual) 1.1 H Eosinophils # (Manual) 0.0 Basophils # (Manual) 0.0 Metamyelocytes # 0.0 Myelocytes # 0.0 Promyelocytes # 0.0 Blast Cells # 0.0 WBC Morphology Not Reportable Hypersegmented Neuts Not Reportable Hyposegmented Neuts Not Reportable Hypogranular Neuts Not Reportable Smudge Cells Not Reportable Toxic Granulation Not Reportable Toxic Vacuolation Not Reportable Dohle Bodies Not Reportable Pelger-Huet Anomaly Not Reportable [place] Rods Not Reportable Platelet Estimate Consistent w auto Clumped Platelets Not Reportable Plt Clumps, EDTA Not Reportable Large Platelets Not Reportable Giant Platelets Not Reportable Platelet Satelliting Not Reportable Plt Morphology Comment Not Reportable RBC Morphology Not Reportable Dimorphic RBCs Not Reportable Polychromasia 1+ Hypochromasia Not Reportable Poikilocytosis Not Reportable Anisocytosis 2+ Microcytosis 1+ Macrocytosis Not Reportable Spherocytes Few Pappenheimer Bodies Not Reportable Sickle Cells Not Reportable Target Cells 1+ Tear Drop Cells Not Reportable Ovalocytes Not Reportable Helmet Cells Not Reportable [place] Bodies Not Reportable [place] Rings Not Reportable Trey Cells Not Reportable Bite Cells Not Reportable Crenated Cell Not Reportable Elliptocytes Not Reportable Acanthocytes (Spur) Not Reportable Rouleaux Not Reportable Hemoglobin C Crystals 2+ Schistocytes Few Malaria parasites Not Reportable Zeke Bodies Not Reportable Hem Pathologist Commnt No Sodium Potassium Chloride Carbon Dioxide Anion Gap BUN Creatinine Estimated GFR BUN/Creatinine Ratio Glucose Calcium Iron 67 TIBC 222 L Ferritin > 2000.0 H Total Bilirubin AST ALT Alkaline Phosphatase Ammonia Total Protein Albumin Albumin/Globulin Ratio Vitamin B12 Folate Urine Opiates Screen Urine Methadone Screen Ur Barbiturates Screen Ur Phencyclidine Scrn Ur Amphetamines Screen U Benzodiazepines Scrn Urine Cocaine Screen U Marijuana (THC) Screen Drugs of Abuse Note 07/12/19 07/12/19 07/12/19 08:28 08:28 11:03 WBC RBC Hgb Hct MCV MCH MCHC RDW Plt Count Add Manual Diff Total Counted Seg Neuts % (Manual) Band Neutrophils % Lymphocytes % (Manual) Reactive Lymphs % (Man) Monocytes % (Manual) Eosinophils % (Manual) Basophils % (Manual) Metamyelocytes % Myelocytes % Promyelocytes % Blast Cells % Nucleated RBC % Seg Neutrophils # Man Band Neutrophils # Lymphocytes # (Manual) Abs React Lymphs (Man) Monocytes # (Manual) Eosinophils # (Manual) Basophils # (Manual) Metamyelocytes # Myelocytes # Promyelocytes # Blast Cells # WBC Morphology Hypersegmented Neuts Hyposegmented Neuts Hypogranular Neuts Smudge Cells Toxic Granulation Toxic Vacuolation Dohle Bodies Pelger-Huet Anomaly [place] Rods Platelet Estimate Clumped Platelets Plt Clumps, EDTA Large Platelets Giant Platelets Platelet Satelliting Plt Morphology Comment RBC Morphology Dimorphic RBCs Polychromasia Hypochromasia Poikilocytosis Anisocytosis Microcytosis Macrocytosis Spherocytes Pappenheimer Bodies Sickle Cells Target Cells Tear Drop Cells Ovalocytes Helmet Cells [place] Bodies [place] Rings Trey Cells Bite Cells Crenated Cell Elliptocytes Acanthocytes (Spur) Rouleaux Hemoglobin C Crystals Schistocytes Malaria parasites Zeke Bodies Hem Pathologist Commnt Sodium Potassium Chloride Carbon Dioxide Anion Gap BUN Creatinine Estimated GFR BUN/Creatinine Ratio Glucose Calcium Iron TIBC Ferritin Total Bilirubin AST ALT Alkaline Phosphatase Ammonia Total Protein Albumin Albumin/Globulin Ratio Vitamin B12 505.1 Folate 12.25 Urine Opiates Screen Presumptive negative Urine Methadone Screen Presumptive negative Ur Barbiturates Screen Presumptive negative Ur Phencyclidine Scrn Presumptive negative Ur Amphetamines Screen Presumptive negative U Benzodiazepines Scrn Presumptive negative Urine Cocaine Screen Presumptive negative U Marijuana (THC) Screen Presumptive negative Drugs of Abuse Note Disclamer 07/13/19 07/13/19 07/13/19 05:07 05:07 05:07 WBC 14.8 H RBC 3.22 L Hgb 9.3 L Hct 26.6 L MCV 82 L MCH 29 MCHC 35 H RDW 20.4 H Plt Count 134 L Add Manual Diff Complete Total Counted 100 Seg Neuts % (Manual) 74.0 H Band Neutrophils % 0 Lymphocytes % (Manual) 21.0 Reactive Lymphs % (Man) 0 Monocytes % (Manual) 3.0 Eosinophils % (Manual) 0 Basophils % (Manual) 0 Metamyelocytes % 2.0 Myelocytes % 0 Promyelocytes % 0 Blast Cells % 0 Nucleated RBC % 127.0 H Seg Neutrophils # Man 11.0 H Band Neutrophils # 0.0 Lymphocytes # (Manual) 3.1 Abs React Lymphs (Man) 0.0 Monocytes # (Manual) 0.4 Eosinophils # (Manual) 0.0 Basophils # (Manual) 0.0 Metamyelocytes # 0.3 Myelocytes # 0.0 Promyelocytes # 0.0 Blast Cells # 0.0 WBC Morphology Not Reportable Hypersegmented Neuts Not Reportable Hyposegmented Neuts Not Reportable Hypogranular Neuts Not Reportable Smudge Cells Not Reportable Toxic Granulation Not Reportable Toxic Vacuolation Not Reportable Dohle Bodies Not Reportable Pelger-Huet Anomaly Not Reportable [place] Rods Not Reportable Platelet Estimate Consistent w auto Clumped Platelets Not Reportable Plt Clumps, EDTA Not Reportable Large Platelets Not Reportable Giant Platelets Not Reportable Platelet Satelliting Not Reportable Plt Morphology Comment Not Reportable RBC Morphology Not Reportable Dimorphic RBCs Not Reportable Polychromasia Not Reportable Hypochromasia Not Reportable Poikilocytosis Not Reportable Anisocytosis 2+ Microcytosis Few Macrocytosis Not Reportable Spherocytes Few Pappenheimer Bodies Not Reportable Sickle Cells Not Reportable Target Cells Few Tear Drop Cells Not Reportable Ovalocytes Not Reportable Helmet Cells Not Reportable [place] Bodies Not Reportable [place] Rings Not Reportable Trey Cells Not Reportable Bite Cells Not Reportable Crenated Cell Not Reportable Elliptocytes Not Reportable Acanthocytes (Spur) Not Reportable Rouleaux Not Reportable Hemoglobin C Crystals Not Reportable Schistocytes Few Malaria parasites Not Reportable Zeke Bodies Not Reportable Hem Pathologist Commnt No Sodium 137 Potassium 4.3 D Chloride 101.7 Carbon Dioxide 20 L Anion Gap 20 BUN 15 Creatinine 0.7 L Estimated GFR > 60 BUN/Creatinine Ratio 21 Glucose 115 H Calcium 8.7 Iron TIBC Ferritin Total Bilirubin 2.40 H AST 124 H ALT 37 Alkaline Phosphatase 280 H Ammonia 63.0 H Total Protein 7.2 Albumin 3.5 L Albumin/Globulin Ratio 0.9 Vitamin B12 Folate Urine Opiates Screen Urine Methadone Screen Ur Barbiturates Screen Ur Phencyclidine Scrn Ur Amphetamines Screen U Benzodiazepines Scrn Urine Cocaine Screen U Marijuana (THC) Screen Drugs of Abuse Note Medications & Allergies - Medications Allergies/Adverse Reactions: Allergies No Known Allergies Allergy (Verified 07/10/19 03:27) Home Medications: Home Medications Medication Instructions Recorded Confirmed Last Taken Type Azithromycin [Zithromax TAB] 250 mg PO QDAY 5 Days #6 tablet 07/06/19 07/11/19 Unknown Rx Benzonatate [Tessalon Perles] 100 mg PO Q8HR PRN #14 capsule 07/06/19 07/11/19 Unknown Rx Prednisone [predniSONE 10 mg 10 mg PO .TAPER #1 tab.ds.pk 07/06/19 07/11/19 Unknown Rx (6-Day Pack, 21 Tabs)] oxyCODONE /ACETAMINOPHEN [Percocet 1 tab PO Q6HR PRN #10 tablet 07/10/19 07/11/19 Unknown Rx 5/325] Active Medications: Generic Name Dose Route Start Last Admin Trade Name Freq PRN Reason Stop Dose Admin Acetaminophen 650 mg 07/11/19 14:59 07/13/19 05:21 Tylenol PO 650 mg Q4H PRN Administration Pain MILD(1-3)/Fever >100.5/HARRIS Albuterol 2.5 mg 07/11/19 14:59 07/13/19 04:18 Proventil IH 2.5 mg Q4HRT PRN Administration Shortness Of Breath Folic Acid 1 mg 07/12/19 10:00 07/12/19 09:42 Folvite PO 1 mg QDAY JHON Administration Hydralazine HCl 5 mg 07/11/19 20:21 07/13/19 05:21 Apresoline IV 5 mg Q4HR PRN Administration Blood Pressure Hydromorphone HCl 0.5 mg 07/11/19 11:30 07/13/19 05:19 Dilaudid IV 0.5 mg Q4H PRN Administration Pain , Severe (7-10) Azithromycin 500 mg/ Sodium 250 mls @ 250 mls/hr 07/11/19 12:00 07/12/19 11:57 Chloride IV 250 mls/hr Q24H JHON Administration Protocol Ceftriaxone Sodium 2 gm in 100 mls @ 200 mls/hr 07/11/19 12:00 07/12/19 09:57 Rocephin/Ns 2 Gm/100 Ml IV 200 mls/hr Q24HR JHON Administration Protocol Ondansetron HCl 4 mg 07/11/19 14:59 Zofran IV Q8H PRN Nausea And Vomiting Sodium Chloride 10 ml 07/11/19 22:00 07/12/19 21:44 Sodium Chloride Flush Syringe 10 Ml IV 10 ml BID JHON Administration Sodium Chloride 10 ml 07/11/19 14:59 Sodium Chloride Flush Syringe 10 Ml IV PRN PRN LINE FLUSH
[2019-07-13] MEDS: FOLIC ACID 1 MG TAB PO SCH (10:23)
[2019-07-13] MEDS: cefTRIAXone/NS 2 GM/100 ML 2 GM/100 ML BAG IV SCH (10:24)
--- NOTE | 2019-07-13 10:51 | Gastroenterology Consultation ---
<ESTELITA RÍOS - Last Filed: 07/13/19 12:23> History of Present Illness - Reason for Consult Consult date: 07/13/19 anemia, elevated LFTs Requesting physician: LUCY DICKSON - History of Present Illness Patient is a 48 y/o male with PMH of sickle cell disease and s/p cholecystectomy who presented to ED with c/o CP, cough, and fever. He was admitted and currently being treated for sepsis 2/2 pneumonia and sickle cell pain crisis. He was evaluated by cardiology with ACS ruled out. Hematology is following. GI has been consulted for anemia, along with elevated LFTs. This morning patient was resting in bed w/o acute distress but with continued pain. Family at bedside. He reports a hx of chronic anemia requiring blood transfusion in the past. No hx of GI bleeding. Was evaluated by GI several years ago while living in [place] with an EGD/colonoscopy with negative results per patient/family report. Currently w/o GI complaints or active signs of bleeding such as abd pain, N/V, hematemesis, melena, diarrhea, constipation, or hematochezia. No Fhx of liver disease or hx of ETOH abuse/IV drug use but admits to a hx of hepatitis C (possibly 2/2 blood transfusion) and is s/p treatment with no known cirrhosis. Past History Past Medical History: other (see HPI) Past Surgical History: cholecystectomy Social history: , lives with family. denies: smoking, alcohol abuse Family history: hypertension, other (Sickle cell disease) Medications and Allergies Allergies Allergy/AdvReac Type Severity Reaction Status Date / Time No Known Allergies Allergy Verified 07/10/19 03:27 Home Medications Medication Instructions Recorded Confirmed Last Taken Type Azithromycin [Zithromax TAB] 250 mg PO QDAY 5 Days #6 tablet 07/06/19 07/11/19 Unknown Rx Benzonatate [Tessalon Perles] 100 mg PO Q8HR PRN #14 capsule 07/06/19 07/11/19 Unknown Rx Prednisone [predniSONE 10 mg 10 mg PO .TAPER #1 tab.ds.pk 07/06/19 07/11/19 Unknown Rx (6-Day Pack, 21 Tabs)] oxyCODONE /ACETAMINOPHEN [Percocet 1 tab PO Q6HR PRN #10 tablet 07/10/19 07/11/19 Unknown Rx 5/325] Active Meds: Active Medications Acetaminophen (Tylenol) 650 mg PO Q4H PRN PRN Reason: Pain MILD(1-3)/Fever >100.5/HARRIS Last Admin: 07/13/19 05:21 Dose: 650 mg Documented by: Albuterol (Proventil) 2.5 mg IH Q4HRT PRN PRN Reason: Shortness Of Breath Last Admin: 07/13/19 04:18 Dose: 2.5 mg Documented by: Folic Acid (Folvite) 1 mg PO QDAY [facility] Last Admin: 07/13/19 10:23 Dose: 1 mg Documented by: Hydralazine HCl (Apresoline) 5 mg IV Q4HR PRN PRN Reason: Blood Pressure Last Admin: 07/13/19 10:24 Dose: 5 mg Documented by: Hydromorphone HCl (Dilaudid) 0.5 mg IV Q4H PRN PRN Reason: Pain , Severe (7-10) Last Admin: 07/13/19 05:19 Dose: 0.5 mg Documented by: Azithromycin 500 mg/ Sodium (Chloride) 250 mls @ 250 mls/hr IV Q24H [facility]; Protocol Last Admin: 07/12/19 11:57 Dose: 250 mls/hr Documented by: Ceftriaxone Sodium (Rocephin/Ns 2 Gm/100 Ml) 2 gm in 100 mls @ 200 mls/hr IV Q24HR [facility]; Protocol Last Admin: 07/13/19 10:24 Dose: 200 mls/hr Documented by: Ondansetron HCl (Zofran) 4 mg IV Q8H PRN PRN Reason: Nausea And Vomiting Sodium Chloride (Sodium Chloride Flush Syringe 10 Ml) 10 ml IV BID [facility] Last Admin: 07/13/19 10:24 Dose: 10 ml Documented by: Sodium Chloride (Sodium Chloride Flush Syringe 10 Ml) 10 ml IV PRN PRN PRN Reason: LINE FLUSH medications reviewed/updated as required Review of Systems - Review of Systems Cardiovascular: chest pain Respiratory: cough, shortness of breath Gastrointestinal: no abdominal pain, no nausea, no vomiting, no hematemesis, no melena, no hematochezia Exam - Constitutional Vital Signs: Temp Pulse Resp BP Pulse Ox 98.7 F 97 H 18 155/99 98 07/13/19 08:25 07/13/19 10:24 07/13/19 08:25 07/13/19 10:24 07/13/19 08:25 General appearance: mild distress - EENT Eyes: PERRL, EOM intact ENT: hearing intact - Respiratory Respiratory effort: normal Respiratory: bilateral: diminished - Cardiovascular Rhythm: regular - Gastrointestinal General gastrointestinal: Present: soft, non-tender, non-distended, normal bowel sounds - Integumentary Integumentary: Present: warm - Neurologic Neurological: alert and oriented x3 - Labs CBC & Chem 7: 07/13/19 05:07 07/13/19 05:07 Lab Results: Laboratory Results - last 24 hr 07/12/19 07/12/19 07/12/19 06:07 08:28 11:03 WBC RBC Hgb Hct MCV MCH MCHC RDW Plt Count 115 L Add Manual Diff Total Counted Seg Neuts % (Manual) Band Neutrophils % Lymphocytes % (Manual) Reactive Lymphs % (Man) Monocytes % (Manual) Eosinophils % (Manual) Basophils % (Manual) Metamyelocytes % Myelocytes % Promyelocytes % Blast Cells % Nucleated RBC % Seg Neutrophils # Man Band Neutrophils # Lymphocytes # (Manual) Abs React Lymphs (Man) Monocytes # (Manual) Eosinophils # (Manual) Basophils # (Manual) Metamyelocytes # Myelocytes # Promyelocytes # Blast Cells # WBC Morphology Hypersegmented Neuts Hyposegmented Neuts Hypogranular Neuts Smudge Cells Toxic Granulation Toxic Vacuolation Dohle Bodies Pelger-Huet Anomaly [place] Rods Platelet Estimate Clumped Platelets Plt Clumps, EDTA Large Platelets Giant Platelets Platelet Satelliting Plt Morphology Comment RBC Morphology Dimorphic RBCs Polychromasia Hypochromasia Poikilocytosis Anisocytosis Microcytosis Macrocytosis Spherocytes Pappenheimer Bodies Sickle Cells Target Cells Tear Drop Cells Ovalocytes Helmet Cells [place] Bodies Brooks Rings Trey Cells Bite Cells Crenated Cell Elliptocytes Acanthocytes (Spur) Rouleaux Hemoglobin C Crystals Schistocytes Malaria parasites Zeke Bodies Hem Pathologist Commnt Sodium Potassium Chloride Carbon Dioxide Anion Gap BUN Creatinine Estimated GFR BUN/Creatinine Ratio Glucose Calcium Ferritin > 2000.0 H Total Bilirubin AST ALT Alkaline Phosphatase Ammonia Total Protein Albumin Albumin/Globulin Ratio Urine Opiates Screen Presumptive negative Urine Methadone Screen Presumptive negative Ur Barbiturates Screen Presumptive negative Ur Phencyclidine Scrn Presumptive negative Ur Amphetamines Screen Presumptive negative U Benzodiazepines Scrn Presumptive negative Urine Cocaine Screen Presumptive negative U Marijuana (THC) Screen Presumptive negative Drugs of Abuse Note Disclamer 07/13/19 07/13/19 07/13/19 05:07 05:07 05:07 WBC 14.8 H RBC 3.22 L Hgb 9.3 L Hct 26.6 L MCV 82 L MCH 29 MCHC 35 H RDW 20.4 H Plt Count 134 L Add Manual Diff Complete Total Counted 100 Seg Neuts % (Manual) 74.0 H Band Neutrophils % 0 Lymphocytes % (Manual) 21.0 Reactive Lymphs % (Man) 0 Monocytes % (Manual) 3.0 Eosinophils % (Manual) 0 Basophils % (Manual) 0 Metamyelocytes % 2.0 Myelocytes % 0 Promyelocytes % 0 Blast Cells % 0 Nucleated RBC % 127.0 H Seg Neutrophils # Man 11.0 H Band Neutrophils # 0.0 Lymphocytes # (Manual) 3.1 Abs React Lymphs (Man) 0.0 Monocytes # (Manual) 0.4 Eosinophils # (Manual) 0.0 Basophils # (Manual) 0.0 Metamyelocytes # 0.3 Myelocytes # 0.0 Promyelocytes # 0.0 Blast Cells # 0.0 WBC Morphology Not Reportable Hypersegmented Neuts Not Reportable Hyposegmented Neuts Not Reportable Hypogranular Neuts Not Reportable Smudge Cells Not Reportable Toxic Granulation Not Reportable Toxic Vacuolation Not Reportable Dohle Bodies Not Reportable Pelger-Huet Anomaly Not Reportable [place] Rods Not Reportable Platelet Estimate Consistent w auto Clumped Platelets Not Reportable Plt Clumps, EDTA Not Reportable Large Platelets Not Reportable Giant Platelets Not Reportable Platelet Satelliting Not Reportable Plt Morphology Comment Not Reportable RBC Morphology Not Reportable Dimorphic RBCs Not Reportable Polychromasia Not Reportable Hypochromasia Not Reportable Poikilocytosis Not Reportable Anisocytosis 2+ Microcytosis Few Macrocytosis Not Reportable Spherocytes Few Pappenheimer Bodies Not Reportable Sickle Cells Not Reportable Target Cells Few Tear Drop Cells Not Reportable Ovalocytes Not Reportable Helmet Cells Not Reportable [place] Bodies Not Reportable [place] Rings Not Reportable [place] Cells Not Reportable Bite Cells Not Reportable Crenated Cell Not Reportable Elliptocytes Not Reportable Acanthocytes (Spur) Not Reportable Rouleaux Not Reportable Hemoglobin C Crystals Not Reportable Schistocytes Few Malaria parasites Not Reportable Zeke Bodies Not Reportable Hem Pathologist Commnt No Sodium 137 Potassium 4.3 D Chloride 101.7 Carbon Dioxide 20 L Anion Gap 20 BUN 15 Creatinine 0.7 L Estimated GFR > 60 BUN/Creatinine Ratio 21 Glucose 115 H Calcium 8.7 Ferritin Total Bilirubin 2.40 H AST 124 H ALT 37 Alkaline Phosphatase 280 H Ammonia 63.0 H Total Protein 7.2 Albumin 3.5 L Albumin/Globulin Ratio 0.9 Urine Opiates Screen Urine Methadone Screen Ur Barbiturates Screen Ur Phencyclidine Scrn Ur Amphetamines Screen U Benzodiazepines Scrn Urine Cocaine Screen U Marijuana (THC) Screen Drugs of Abuse Note Assessment and Plan 1.anemia-chronic 2.sickle cell trait with coexistent alpha-thalassemia -plt 134 -iron WNL (67) -TIBC 222, ferritin >2000 -stool occult pending -H/H 9.3/26.6-stable/trending up -continue to monitor H/H and transfuse as needed -no active signs of GI bleeding -previous EGD/colonoscopy several years ago in [place] with negative results per pt report (records unavailable) -etiology-likely 2/2 hemolytic process vs other -no plan for scope at this time unless over bleeding develops -daily PPI -continue supportive care -hematology following 3.elevated LFTs 4.H/o hepatitis C (s/p treatment) -LFTs- Tbil 2.40, AST 124, ALT 37, alk phos 280- stable -etiology unclear (hemolytic process, sepsis, medications vs other) -will order abd U/S for further evaluation of liver, along with acute hepatitis panel, INR, and HCV RNA -clinically, patient is w/o GI complaints such as abd pain or N/V. -diet as tolerated -avoid hepatotoxic agents -continue to trend labs and supportive care 5.sepsis/pneumonia <MIN,MILLER CALEB - Last Filed: 07/13/19 15:18> Medications and Allergies Active Meds: Active Medications Acetaminophen (Tylenol) 650 mg PO Q4H PRN PRN Reason: Pain MILD(1-3)/Fever >100.5/HARRIS Last Admin: 07/13/19 05:21 Dose: 650 mg Documented by: Albuterol (Proventil) 2.5 mg IH Q4HRT PRN PRN Reason: Shortness Of Breath Last Admin: 07/13/19 04:18 Dose: 2.5 mg Documented by: Folic Acid (Folvite) 1 mg PO QDAY [facility] Last Admin: 07/13/19 10:23 Dose: 1 mg Documented by: Hydralazine HCl (Apresoline) 5 mg IV Q4HR PRN PRN Reason: Blood Pressure Last Admin: 07/13/19 10:24 Dose: 5 mg Documented by: Hydromorphone HCl (Dilaudid) 0.5 mg IV Q4H PRN PRN Reason: Pain , Severe (7-10) Last Admin: 07/13/19 11:02 Dose: 0.5 mg Documented by: Azithromycin 500 mg/ Sodium (Chloride) 250 mls @ 250 mls/hr IV Q24H [facility]; Protocol Last Admin: 07/12/19 11:57 Dose: 250 mls/hr Documented by: Ceftriaxone Sodium (Rocephin/Ns 2 Gm/100 Ml) 2 gm in 100 mls @ 200 mls/hr IV Q24HR [facility]; Protocol Last Admin: 07/13/19 10:24 Dose: 200 mls/hr Documented by: Ondansetron HCl (Zofran) 4 mg IV Q8H PRN PRN Reason: Nausea And Vomiting Pantoprazole Sodium (Protonix) 40 mg PO QDAY [facility] Sodium Chloride (Sodium Chloride Flush Syringe 10 Ml) 10 ml IV BID [facility] Last Admin: 07/13/19 10:24 Dose: 10 ml Documented by: Sodium Chloride (Sodium Chloride Flush Syringe 10 Ml) 10 ml IV PRN PRN PRN Reason: LINE FLUSH Exam - Constitutional Vital Signs: Temp Pulse Resp BP Pulse Ox 100.4 F H 114 H 18 149/97 96 07/13/19 12:23 07/13/19 12:23 07/13/19 12:23 07/13/19 12:23 07/13/19 12:23 - Labs CBC & Chem 7: 07/13/19 05:07 07/13/19 05:07 Lab Results: Laboratory Results - last 24 hr 07/12/19 07/13/19 07/13/19 08:28 05:07 05:07 WBC 14.8 H RBC 3.22 L Hgb 9.3 L Hct 26.6 L MCV 82 L MCH 29 MCHC 35 H RDW 20.4 H Plt Count 134 L Add Manual Diff Complete Total Counted 100 Seg Neuts % (Manual) 74.0 H Band Neutrophils % 0 Lymphocytes % (Manual) 21.0 Reactive Lymphs % (Man) 0 Monocytes % (Manual) 3.0 Eosinophils % (Manual) 0 Basophils % (Manual) 0 Metamyelocytes % 2.0 Myelocytes % 0 Promyelocytes % 0 Blast Cells % 0 Nucleated RBC % 127.0 H Seg Neutrophils # Man 11.0 H Band Neutrophils # 0.0 Lymphocytes # (Manual) 3.1 Abs React Lymphs (Man) 0.0 Monocytes # (Manual) 0.4 Eosinophils # (Manual) 0.0 Basophils # (Manual) 0.0 Metamyelocytes # 0.3 Myelocytes # 0.0 Promyelocytes # 0.0 Blast Cells # 0.0 WBC Morphology Not Reportable Hypersegmented Neuts Not Reportable Hyposegmented Neuts Not Reportable Hypogranular Neuts Not Reportable Smudge Cells Not Reportable Toxic Granulation Not Reportable Toxic Vacuolation Not Reportable Dohle Bodies Not Reportable Pelger-Huet Anomaly Not Reportable [place] Rods Not Reportable Platelet Estimate Consistent w auto Clumped Platelets Not Reportable Plt Clumps, EDTA Not Reportable Large Platelets Not Reportable Giant Platelets Not Reportable Platelet Satelliting Not Reportable Plt Morphology Comment Not Reportable RBC Morphology Not Reportable Dimorphic RBCs Not Reportable Polychromasia Not Reportable Hypochromasia Not Reportable Poikilocytosis Not Reportable Anisocytosis 2+ Microcytosis Few Macrocytosis Not Reportable Spherocytes Few Pappenheimer Bodies Not Reportable Sickle Cells Not Reportable Target Cells Few Tear Drop Cells Not Reportable Ovalocytes Not Reportable Helmet Cells Not Reportable [place] Bodies Not Reportable [place] Rings Not Reportable Trey Cells Not Reportable Bite Cells Not Reportable Crenated Cell Not Reportable Elliptocytes Not Reportable Acanthocytes (Spur) Not Reportable Rouleaux Not Reportable Hemoglobin C Crystals Not Reportable Schistocytes Few Malaria parasites Not Reportable Zeke Bodies Not Reportable Hem Pathologist Commnt No Sodium 137 Potassium 4.3 D Chloride 101.7 Carbon Dioxide 20 L Anion Gap 20 BUN 15 Creatinine 0.7 L Estimated GFR > 60 BUN/Creatinine Ratio 21 Glucose 115 H Calcium 8.7 Ferritin > 2000.0 H Total Bilirubin 2.40 H AST 124 H ALT 37 Alkaline Phosphatase 280 H Ammonia Total Protein 7.2 Albumin 3.5 L Albumin/Globulin Ratio 0.9 07/13/19 05:07 WBC RBC Hgb Hct MCV MCH MCHC RDW Plt Count Add Manual Diff Total Counted Seg Neuts % (Manual) Band Neutrophils % Lymphocytes % (Manual) Reactive Lymphs % (Man) Monocytes % (Manual) Eosinophils % (Manual) Basophils % (Manual) Metamyelocytes % Myelocytes % Promyelocytes % Blast Cells % Nucleated RBC % Seg Neutrophils # Man Band Neutrophils # Lymphocytes # (Manual) Abs React Lymphs (Man) Monocytes # (Manual) Eosinophils # (Manual) Basophils # (Manual) Metamyelocytes # Myelocytes # Promyelocytes # Blast Cells # WBC Morphology Hypersegmented Neuts Hyposegmented Neuts Hypogranular Neuts Smudge Cells Toxic Granulation Toxic Vacuolation Dohle Bodies Pelger-Huet Anomaly [place] Rods Platelet Estimate Clumped Platelets Plt Clumps, EDTA Large Platelets Giant Platelets Platelet Satelliting Plt Morphology Comment RBC Morphology Dimorphic RBCs Polychromasia Hypochromasia Poikilocytosis Anisocytosis Microcytosis Macrocytosis Spherocytes Pappenheimer Bodies Sickle Cells Target Cells Tear Drop Cells Ovalocytes Helmet Cells [place] Bodies [place] Rings [place] Cells Bite Cells Crenated Cell Elliptocytes Acanthocytes (Spur) Rouleaux Hemoglobin C Crystals Schistocytes Malaria parasites Zeke Bodies Hem Pathologist Commnt Sodium Potassium Chloride Carbon Dioxide Anion Gap BUN Creatinine Estimated GFR BUN/Creatinine Ratio Glucose Calcium Ferritin Total Bilirubin AST ALT Alkaline Phosphatase Ammonia 63.0 H Total Protein Albumin Albumin/Globulin Ratio Assessment and Plan Patient seen and examined on 07/13/2019. Agree with A/P as stated. 48 yo male with sickle cell trait with alpha-thalassemia admitted with crisis. Elevated LFT may be multifactorial with hemolytic process, sepsis, and medications. abdominal US ordered along with acute hep panel, INR, and HCV RNA. Will follow.
--- NOTE | 2019-07-13 12:37 | Progress Note ---
Assessment and Plan Chest pain The chest pain is atypical, nonexertional, located in the left chest. Cardiac consultation was requested for chest pain assessment. The ECG was Elevated troponin in the setting of multiple laboratory abnormalities normal sinus rhythm, normal ECG. Acute Pneumonia Elevated bilirubin Elevated liver transaminases History of sickle cell trait, not sickle cell disease Anemia/thrombocytopenia Recommendations: Echocardiogram for LVEF assessment. Cardiac ischemic assessment will be done before discharge, once pulmonary inf ection has resolved. Subjective Date of service: 07/13/19 Principal diagnosis: sickle pain Interval history: Patient is resting in bed comfortably. No cardiac complaints. Noted febrile overnight. Objective Vital Signs Temp Pulse Pulse Pulse Resp Resp BP 07/13/19 11:02 22 07/13/19 11:00 104 H 22 07/13/19 10:24 97 H 155/99 07/13/19 08:25 98.7 F 97 H 18 155/99 07/13/19 05:21 109 H 169/105 07/13/19 05:19 22 07/13/19 04:18 97 H 20 07/13/19 03:33 101.8 F H 90 20 169/105 07/12/19 23:30 100.1 F H 78 22 155/110 07/12/19 23:16 20 07/12/19 21:45 22 07/12/19 21:15 07/12/19 21:00 110 H 22 07/12/19 20:53 98.0 F 98 H 18 171/104 07/12/19 20:00 104 H 07/12/19 19:39 103.8 F H 18 159/93 07/12/19 16:48 98.9 F 91 H 18 169/107 07/12/19 13:31 Pulse Ox 07/13/19 11:02 07/13/19 11:00 98 07/13/19 10:24 07/13/19 08:25 98 07/13/19 05:21 07/13/19 05:19 07/13/19 04:18 07/13/19 03:33 97 07/12/19 23:30 96 07/12/19 23:16 98 07/12/19 21:45 07/12/19 21:15 93 07/12/19 21:00 07/12/19 20:53 94 07/12/19 20:00 07/12/19 19:39 07/12/19 16:48 91 07/12/19 13:31 96 - Physical Examination General: No Apparent Distress HEENT: Positive: PERRL Neck: Positive: trachea midline Cardiac: Positive: Reg Rate and Rhythm Lungs: Positive: Decreased Breath Sounds Neuro: Positive: Grossly Intact Extremities: Absent: edema - Labs and Meds Cardiac Enzymes 07/13/19 Range/Units 05:07 AST 124 H (5-40) units/L CBC 07/13/19 Range/Units 05:07 WBC 14.8 H (4.5-11.0) K/mm3 RBC 3.22 L (3.65-5.03) M/mm3 Hgb 9.3 L (11.8-15.2) gm/dl Hct 26.6 L (35.5-45.6) % Plt Count 134 L (140-440) K/mm3 Comprehensive Metabolic Panel 07/13/19 Range/Units 05:07 Sodium 137 (137-145) mmol/L Potassium 4.3 D (3.6-5.0) mmol/L Chloride 101.7 (98-107) mmol/L Carbon Dioxide 20 L (22-30) mmol/L BUN 15 (9-20) mg/dL Creatinine 0.7 L (0.8-1.5) mg/dL Glucose 115 H (75-100) mg/dL Calcium 8.7 (8.4-10.2) mg/dL AST 124 H (5-40) units/L ALT 37 (7-56) units/L Alkaline Phosphatase 280 H (35-129) units/L Total Protein 7.2 (6.3-8.2) g/dL Albumin 3.5 L (3.9-5) g/dL
[2019-07-13] MEDS: AZITHROMYCIN 500 MG in SODIUM CHLORIDE 0.9% 250ML 250 ML IV SCH (15:24)
--- NOTE | 2019-07-13 16:45 | Progress Note ---
Assessment and Plan /Sepsis due to bilateral pneumonia On Sepsis protocol: IV antibiotic therapy, IV fluid resuscitation therapy, ordered blood culture, HIV, LDH, /Community-acquired Pneumonia Empiric antibiotics with Rocephin and Zithromax, follow cultures. /Transaminitis; Unknown etiology, closely monitor Hepatitis panel, GI consult if no improvement /Sickle cell trait with coexistent alpha-thalassemia Hematology consulted, IV fluid resuscitation therapy, supportive care. /Leukocytosis; Secondary to pneumonia, treat underlying cause. /Symptomatic Anemia; Stool occult blood, GI evaluation Follow H&H, transfuse as needed, hematology following /Hypokalemia; replenish per protocol and monitor levels /Elevated troponin Serial cardiac enzymes, EKG, cardiology consulted in ED, echocardiogram. No EKG changes. No evidence of ischemia on EKG. / DVT prophylaxis SCD to bilateral lower extremities while in bed, supportive care. Patient is ambulatory Disposition; follow cardiology, GI evaluation and recommendations Follow clinically, discharged when medically stable Brief History Patient is a 48 y/o male with PMH of sickle cell disease and s/p cholecystectomy who presented to ED with c/o CP, cough, and fever. He was admitted and currently being treated for sepsis 2/2 pneumonia and sickle cell pain crisis. Hospitalist Physical General appearance: Present: no acute distress, well-nourished - EENT Eyes: Present: PERRL, EOM intact - Neck Neck: Present: supple, normal ROM - Respiratory Respiratory effort: normal Respiratory: bilateral: diminished, negative: rales, rhonchi, wheezing - Cardiovascular Rhythm: regular Heart Sounds: Present: S1 & S2 - Extremities Extremities: no ischemia, No edema - Abdominal General gastrointestinal: soft, non-tender, non-distended, normal bowel sounds - Integumentary Integumentary: Present: clear, warm - Psychiatric Psychiatric: appropriate mood/affect, cooperative - Neurologic Neurologic: CNII-XII intact, moves all extremities Subjective Date of service: 07/13/19 Principal diagnosis: sickle pain Interval history: Patient seen and examined c/o seveere back pain and leg pain, very poor appetite Not feeling well. updated family at bedside Objective - Constitutional Vitals: Vital Signs - 12hr 07/13/19 07/13/19 07/13/19 05:19 05:21 08:00 Temperature Pulse Rate 109 H 101 H Pulse Rate [ Apical] Respiratory 22 Rate Blood Pressure 169/105 Blood Pressure [Right] O2 Sat by Pulse Oximetry 07/13/19 07/13/19 07/13/19 08:25 10:24 11:00 Temperature 98.7 F Pulse Rate 97 H 97 H Pulse Rate [ 104 H Apical] Respiratory 18 22 Rate Blood Pressure 155/99 155/99 Blood Pressure [Right] O2 Sat by Pulse 98 98 Oximetry 07/13/19 07/13/19 07/13/19 11:02 12:23 16:19 Temperature 100.4 F H Pulse Rate 114 H Pulse Rate [ Apical] Respiratory 22 18 20 Rate Blood Pressure Blood Pressure 149/97 [Right] O2 Sat by Pulse 96 Oximetry - Labs CBC & Chem 7: 07/14/19 05:38 07/14/19 05:38 Labs: Abnormal lab results 07/12/19 07/13/19 07/13/19 Range/Units 08:28 05:07 05:07 WBC 14.8 H (4.5-11.0) K/mm3 RBC 3.22 L (3.65-5.03) M/mm3 Hgb 9.3 L (11.8-15.2) gm/dl Hct 26.6 L (35.5-45.6) % MCV 82 L (84-94) fl MCHC 35 H (32-34) % RDW 20.4 H (13.2-15.2) % Plt Count 134 L (140-440) K/mm3 Seg Neuts % (Manual) 74.0 H (40.0-70.0) % Nucleated RBC % 127.0 H (0.0-0.9) % Seg Neutrophils # Man 11.0 H (1.8-7.7) K/mm3 Carbon Dioxide 20 L (22-30) mmol/L Creatinine 0.7 L (0.8-1.5) mg/dL Glucose 115 H (75-100) mg/dL Ferritin > 2000.0 H (13.0-400.0) ng/mL Total Bilirubin 2.40 H (0.1-1.2) mg/dL AST 124 H (5-40) units/L Alkaline Phosphatase 280 H (35-129) units/L Ammonia (25-60) umol/L Albumin 3.5 L (3.9-5) g/dL 07/13/19 Range/Units 05:07 WBC (4.5-11.0) K/mm3 RBC (3.65-5.03) M/mm3 Hgb (11.8-15.2) gm/dl Hct (35.5-45.6) % MCV (84-94) fl MCHC (32-34) % RDW (13.2-15.2) % Plt Count (140-440) K/mm3 Seg Neuts % (Manual) (40.0-70.0) % Nucleated RBC % (0.0-0.9) % Seg Neutrophils # Man (1.8-7.7) K/mm3 Carbon Dioxide (22-30) mmol/L Creatinine (0.8-1.5) mg/dL Glucose (75-100) mg/dL Ferritin (13.0-400.0) ng/mL Total Bilirubin (0.1-1.2) mg/dL AST (5-40) units/L Alkaline Phosphatase (35-129) units/L Ammonia 63.0 H (25-60) umol/L Albumin (3.9-5) g/dL
[2019-07-13] MEDS: D5W/0.9% NACL 1,000 ML IV SCH (16:50)
[2019-07-13] MEDS: IBUPROFEN 400 MG TAB PO PRN (17:39)
[2019-07-14] MEDS: D5W/0.9% NACL 1,000 ML IV SCH ×3 (01:13→23:33)
[2019-07-14] MEDS: HYDROmorphone 1 MG/1 ML INJ IV PRN ×3 (01:20→17:30)
[2019-07-14 06:25] LABS: Hematocrit 22.5 % (35.5-45.6); Hemoglobin 8.2 gm/dl (11.8-15.2); Mean Corpuscular HGB Conc 36 % (32-34); Mean Corpuscular Volume 81 fl (84-94); Red Blood Count 2.79 M/mm3 (3.65-5.03)
[2019-07-14 06:31] LABS: INR 0.92 (0.87-1.13)
[2019-07-14 06:47] LABS: Alanine Aminotransferase 30 units/L (7-56); Albumin 3.4 g/dL (3.9-5); BUN/Creatinine Ratio 22; Blood Urea Nitrogen 13 mg/dL (9-20); Calcium 8.3 mg/dL (8.4-10.2); Hemolysis Index 34; Hepatitis B Surface Antigen Non-Reactive (Negative); Hepatitis C Virus Antibody Reactive (NonReactive)
[2019-07-14 06:59] LABS: Platelet Count 87 K/mm3 (140-440)
[2019-07-14 07:11] LABS: Basophils % (Manual) 0 % (0.0-1.8); Eosinophils % (Manual) 0 % (0.0-4.3); Platelet Estimate Consistent w Auto; Total Cells Counted 100
[2019-07-14 07:12] LABS: Anisocytosis 1+; Schistocytes Few; Sickle Cells Few; Target Cells Few
[2019-07-14 07:13] LABS: Spherocytes Rare
--- NOTE | 2019-07-14 07:26 | Hem/Onc Progress Note ---
Assessment and Plan 1. Anemia with radiological changes for sickle changes. The patient has hemoglobin but probably this is more than that this may be SS or other form. hemoglobin electrophoresis. 2. Pain issues, on pain medications. 3. Fever issues, on antibiotics. 4. Hydration may help the patient. 5. folic acid. 6. The patient states that his pain is sickle cell crisis. This is very infrequent, once every 5 years. Once this crisis improves, outpatient discussion regarding need or option for Hydrea can be done. 7. Elevated troponin. 8. 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 We will try to get more information for same. pt says - does not know about alpha thal pain fluctuating - Patient Problems (1) Sickle cell pain crisis Current Visit: Yes Status: Acute Subjective Date of service: 07/14/19 Principal diagnosis: anemia Interval history: pain issues + Objective - Exam Narrative Exam: Pain - better General appearance - awake Performance status limited self care Eyes - no icterus ENT - no bleeding LNs cervical not palpable Neck - no LN Respiratory Normal - on o2 Breath sounds - CTA anteriorly CVS S1 S2 + Extremities no edema General GI Soft Rectal deferred male - deferred Skin warm Musculoskeletal - moves arms and legs Neurologically - awake - Constitutional Vitals: Last Vital Signs Temp 99.7 F H 07/14/19 03:41 Pulse 98 H 07/14/19 03:41 Resp 20 07/14/19 03:41 BP 138/90 07/14/19 03:41 Pulse Ox 98 07/14/19 03:41 - Labs Lab Results: Laboratory Results - last 24 hr 07/14/19 07/14/19 07/14/19 05:38 05:38 05:38 WBC 11.9 H RBC 2.79 L Hgb 8.2 L Hct 22.5 L MCV 81 L MCH 29 MCHC 36 H RDW 20.0 H Plt Count 87 L Add Manual Diff Complete Total Counted 100 Seg Neuts % (Manual) 68.0 Band Neutrophils % 0 Lymphocytes % (Manual) 24.0 Reactive Lymphs % (Man) 0 Monocytes % (Manual) 8.0 H Eosinophils % (Manual) 0 Basophils % (Manual) 0 Metamyelocytes % 0 Myelocytes % 0 Promyelocytes % 0 Blast Cells % 0 Nucleated RBC % 100.0 H Seg Neutrophils # Man 8.1 H Band Neutrophils # 0.0 Lymphocytes # (Manual) 2.9 Abs React Lymphs (Man) 0.0 Monocytes # (Manual) 1.0 H Eosinophils # (Manual) 0.0 Basophils # (Manual) 0.0 Metamyelocytes # 0.0 Myelocytes # 0.0 Promyelocytes # 0.0 Blast Cells # 0.0 WBC Morphology Not Reportable Hypersegmented Neuts Not Reportable Hyposegmented Neuts Not Reportable Hypogranular Neuts Not Reportable Smudge Cells Not Reportable Toxic Granulation Not Reportable Toxic Vacuolation Not Reportable Dohle Bodies Not Reportable Pelger-Huet Anomaly Not Reportable [place] Rods Not Reportable Platelet Estimate Consistent w auto Clumped Platelets Not Reportable Plt Clumps, EDTA Not Reportable Large Platelets Not Reportable Giant Platelets Not Reportable Platelet Satelliting Not Reportable Plt Morphology Comment Not Reportable RBC Morphology Not Reportable Dimorphic RBCs Not Reportable Polychromasia Not Reportable Hypochromasia Not Reportable Poikilocytosis Not Reportable Anisocytosis 1+ Microcytosis Few Macrocytosis Not Reportable Spherocytes Rare Pappenheimer Bodies Not Reportable Sickle Cells Few Target Cells Few Tear Drop Cells Not Reportable Ovalocytes Not Reportable Helmet Cells Not Reportable Gil-[place] Bodies Not Reportable [place] Rings Not Reportable Trey Cells Not Reportable Bite Cells Not Reportable Crenated Cell Not Reportable Elliptocytes Not Reportable Acanthocytes (Spur) Not Reportable Rouleaux Not Reportable Hemoglobin C Crystals Not Reportable Schistocytes Few Malaria parasites Not Reportable Zeke Bodies Not Reportable Hem Pathologist Commnt No PT 12.4 INR 0.92 Sodium Potassium Chloride Carbon Dioxide Anion Gap BUN Creatinine Estimated GFR BUN/Creatinine Ratio Glucose Calcium Total Bilirubin AST ALT Alkaline Phosphatase Ammonia Total Protein Albumin Albumin/Globulin Ratio Hepatitis A IgM Ab Non-reactive Hep Bs Antigen Non-reactive Hep B Core IgM Ab Non-reactive Hepatitis C Antibody Reactive A 07/14/19 07/14/19 05:38 05:38 WBC RBC Hgb Hct MCV MCH MCHC RDW Plt Count Add Manual Diff Total Counted Seg Neuts % (Manual) Band Neutrophils % Lymphocytes % (Manual) Reactive Lymphs % (Man) Monocytes % (Manual) Eosinophils % (Manual) Basophils % (Manual) Metamyelocytes % Myelocytes % Promyelocytes % Blast Cells % Nucleated RBC % Seg Neutrophils # Man Band Neutrophils # Lymphocytes # (Manual) Abs React Lymphs (Man) Monocytes # (Manual) Eosinophils # (Manual) Basophils # (Manual) Metamyelocytes # Myelocytes # Promyelocytes # Blast Cells # WBC Morphology Hypersegmented Neuts Hyposegmented Neuts Hypogranular Neuts Smudge Cells Toxic Granulation Toxic Vacuolation Dohle Bodies Pelger-Huet Anomaly [place] Rods Platelet Estimate Clumped Platelets Plt Clumps, EDTA Large Platelets Giant Platelets Platelet Satelliting Plt Morphology Comment RBC Morphology Dimorphic RBCs Polychromasia Hypochromasia Poikilocytosis Anisocytosis Microcytosis Macrocytosis Spherocytes Pappenheimer Bodies Sickle Cells Target Cells Tear Drop Cells Ovalocytes Helmet Cells Gil-[place] Bodies [place] Rings Trey Cells Bite Cells Crenated Cell Elliptocytes Acanthocytes (Spur) Rouleaux Hemoglobin C Crystals Schistocytes Malaria parasites Zeke Bodies Hem Pathologist Commnt PT INR Sodium 142 Potassium 4.0 Chloride 105.4 Carbon Dioxide 23 Anion Gap 18 BUN 13 Creatinine 0.6 L Estimated GFR > 60 BUN/Creatinine Ratio 22 Glucose 114 H Calcium 8.3 L Total Bilirubin 2.40 H AST 66 H ALT 30 Alkaline Phosphatase 211 H Ammonia 70.0 H Total Protein 6.4 Albumin 3.4 L Albumin/Globulin Ratio 1.1 Hepatitis A IgM Ab Hep Bs Antigen Hep B Core IgM Ab Hepatitis C Antibody Medications & Allergies - Medications Allergies/Adverse Reactions: Allergies No Known Allergies Allergy (Verified 07/10/19 03:27) Home Medications: Home Medications Medication Instructions Recorded Confirmed Last Taken Type Azithromycin [Zithromax TAB] 250 mg PO QDAY 5 Days #6 tablet 07/06/19 07/11/19 Unknown Rx Benzonatate [Tessalon Perles] 100 mg PO Q8HR PRN #14 capsule 07/06/19 07/11/19 Unknown Rx Prednisone [predniSONE 10 mg 10 mg PO .TAPER #1 tab.ds.pk 07/06/19 07/11/19 Unknown Rx (6-Day Pack, 21 Tabs)] oxyCODONE /ACETAMINOPHEN [Percocet 1 tab PO Q6HR PRN #10 tablet 07/10/19 07/11/19 Unknown Rx 5/325] Active Medications: Generic Name Dose Route Start Last Admin Trade Name Freq PRN Reason Stop Dose Admin Albuterol 2.5 mg 07/11/19 14:59 07/13/19 04:18 Proventil IH 2.5 mg Q4HRT PRN Administration Shortness Of Breath Folic Acid 1 mg 07/12/19 10:00 07/13/19 10:23 Folvite PO 1 mg QDAY JHON Administration Hydralazine HCl 5 mg 07/11/19 20:21 07/13/19 10:24 Apresoline IV 5 mg Q4HR PRN Administration Blood Pressure Hydromorphone HCl 0.5 mg 07/11/19 11:30 07/14/19 07:13 Dilaudid IV 0.5 mg Q4H PRN Administration Pain , Severe (7-10) Azithromycin 500 mg/ Sodium 250 mls @ 250 mls/hr 07/11/19 12:00 07/13/19 15:24 Chloride IV 250 mls/hr Q24H JHON Administration Protocol Ceftriaxone Sodium 2 gm in 100 mls @ 200 mls/hr 07/11/19 12:00 07/13/19 10:24 Rocephin/Ns 2 Gm/100 Ml IV 200 mls/hr Q24HR JHON Administration Protocol Dextrose/Sodium Chloride 1,000 mls @ 125 mls/hr 07/13/19 17:00 07/14/19 01:13 D5ns IV 125 mls/hr DIRECT JHON Administration Ibuprofen 400 mg 07/13/19 17:30 07/13/19 17:39 Ibuprofen PO 400 mg Q6H PRN Administration Fever >101 Ondansetron HCl 4 mg 07/11/19 14:59 Zofran IV Q8H PRN Nausea And Vomiting Pantoprazole Sodium 40 mg 07/14/19 10:00 Protonix PO QDAY JHON Sodium Chloride 10 ml 07/11/19 22:00 07/14/19 01:21 Sodium Chloride Flush Syringe 10 Ml IV 10 ml BID JHON Administration Sodium Chloride 10 ml 07/11/19 14:59 Sodium Chloride Flush Syringe 10 Ml IV PRN PRN LINE FLUSH
--- NOTE | 2019-07-14 09:39 | Ultrasound Report ---
ULTRASOUND ABDOMEN, COMPLETE INDICATION: Elevated liver function tests. COMPARISON: No relevant prior imaging study available. FINDINGS: Pancreas: No significant abnormality. Abdominal Aorta: No significant abnormality. IVC: No significant abnormality. Liver: The liver measures 17.4 cm in length. No significant abnormality. Normal hepatopedal blood fl ow in the main portal vein. Gallbladder: No significant abnormality. Bile ducts: No significant abnormality. Common bile duct measures 1.8 mm. Kidneys: Right: 12.1 cm in length. No significant abnormality. Left: 9.9 cm in length. No signifi cant abnormality. Spleen: No significant abnormality. Free fluid: None. Additional Findings: None. IMPRESSION: No sonographic abnormality of the abdomen. Signer Name: Fidel Giron Jr, MD Signed: 07/14/2019 9:34 AM Workstation Name: [id number]
[2019-07-14] MEDS: FOLIC ACID 1 MG TAB PO SCH (09:47)
[2019-07-14] MEDS: PANTOPRAZOLE 40 MG TAB PO SCH (09:47)
[2019-07-14] MEDS: cefTRIAXone/NS 2 GM/100 ML 2 GM/100 ML BAG IV SCH (09:48)
--- NOTE | 2019-07-14 11:33 | Progress Note ---
Assessment and Plan Chest pain Elevated troponin in the setting of multiple laboratory abnormalities normal sinus rhythm, normal ECG. Acute Pneumonia Elevated bilirubin Elevated liver transaminases Anemia/thrombocytopenia An echocardiogram reports a normal LV systolic function, EF 55-60%. Recommend: Further ischemic cardiac evaluation depend on clinical course. Subjective Date of service: 07/14/19 Principal diagnosis: sickle pain Interval history: Patient is resting in bed comfortably. No cardiac complaints. Objective Vital Signs Temp Pulse Resp BP BP Pulse Ox 07/14/19 11:05 20 97 07/14/19 07:55 102.3 F H 18 143/96 07/14/19 03:41 99.7 F H 98 H 20 138/90 98 07/14/19 01:20 20 07/13/19 23:33 98.8 F 87 20 142/99 97 07/13/19 21:31 99.1 F 96 H 18 140/103 98 07/13/19 20:36 20 97 07/13/19 20:27 100 07/13/19 20:00 95 H 07/13/19 16:40 101.3 F H 102 H 19 158/95 95 07/13/19 16:19 20 07/13/19 12:23 100.4 F H 114 H 18 149/97 96 - Physical Examination General: No Apparent Distress HEENT: Positive: PERRL Neck: Positive: trachea midline Cardiac: Positive: Reg Rate and Rhythm Lungs: Positive: Normal Breath Sounds Neuro: Positive: Grossly Intact Extremities: Absent: edema - Labs and Meds Cardiac Enzymes 07/14/19 Range/Units 05:38 AST 66 H (5-40) units/L Coagulation 07/14/19 Range/Units 05:38 PT 12.4 (12.2-14.9) Sec. INR 0.92 (0.87-1.13) CBC 07/14/19 Range/Units 05:38 WBC 11.9 H (4.5-11.0) K/mm3 RBC 2.79 L (3.65-5.03) M/mm3 Hgb 8.2 L (11.8-15.2) gm/dl Hct 22.5 L (35.5-45.6) % Plt Count 87 L (140-440) K/mm3 Comprehensive Metabolic Panel 07/14/19 Range/Units 05:38 Sodium 142 (137-145) mmol/L Potassium 4.0 (3.6-5.0) mmol/L Chloride 105.4 (98-107) mmol/L Carbon Dioxide 23 (22-30) mmol/L BUN 13 (9-20) mg/dL Creatinine 0.6 L (0.8-1.5) mg/dL Glucose 114 H (75-100) mg/dL Calcium 8.3 L (8.4-10.2) mg/dL AST 66 H (5-40) units/L ALT 30 (7-56) units/L Alkaline Phosphatase 211 H (35-129) units/L Total Protein 6.4 (6.3-8.2) g/dL Albumin 3.4 L (3.9-5) g/dL
[2019-07-14] MEDS: AZITHROMYCIN 500 MG in SODIUM CHLORIDE 0.9% 250ML 250 ML IV SCH (11:45)
--- NOTE | 2019-07-14 12:01 | Gastroenterology Progress Note ---
Assessment and Plan 1.anemia-chronic 2.sickle cell trait with coexistent alpha-thalassemia -plt 87 -iron WNL (67), folate and B12 WNL -TIBC 222, ferritin >2000 -stool occult pending -H/H 8.2/22.5-stable -continue to monitor H/H and transfuse as needed -no active signs of GI bleeding -previous EGD/colonoscopy several years ago in [place] with negative results per pt report (records unavailable) -etiology-likely 2/2 hemolytic process vs other -no plan for scope at this time unless over bleeding develops -daily PPI -continue supportive care -hematology following 3.elevated LFTs 4.H/o hepatitis C (s/p treatment) -LFTs- stable -INR WNL- preserved synthetic function with no evidence of liver failure -acute hepatitis panel with +hep C antibody- HCV RNA pending -etiology unclear- likely multifactorial (hemolytic process, sepsis, medications, etc.) -liver normal on abd U/S -clinically, patient is w/o GI complaints such as abd pain or N/V. No encephalo mesha noted upon exam. -diet as tolerated -avoid hepatotoxic agents -continue to trend labs and supportive care 5.sepsis/pneumonia Subjective Date of service: 07/14/19 Principal diagnosis: anemia, elevated LFTs Interval history: No acute distress, active signs of bleeding, or GI complaints. Objective - Constitutional Vitals: Temp Pulse Resp BP Pulse Ox 102.3 F H 98 H 20 143/96 97 07/14/19 07:55 07/14/19 03:41 07/14/19 11:05 07/14/19 07:55 07/14/19 11:05 General appearance: no acute distress - EENT Eyes: PERRL, EOM intact ENT: hearing intact - Respiratory Respiratory effort: normal Respiratory: bilateral: diminished - Cardiovascular Rhythm: regular - Gastrointestinal General gastrointestinal: Present: soft, non-tender, non-distended, normal bowel sounds - Neurologic Neurological: alert and oriented x3 - Labs CBC & Chem 7: 07/14/19 05:38 07/14/19 05:38 Labs: Laboratory Results - last 24 hr 07/14/19 07/14/19 07/14/19 05:38 05:38 05:38 WBC 11.9 H RBC 2.79 L Hgb 8.2 L Hct 22.5 L MCV 81 L MCH 29 MCHC 36 H RDW 20.0 H Plt Count 87 L Add Manual Diff Complete Total Counted 100 Seg Neuts % (Manual) 68.0 Band Neutrophils % 0 Lymphocytes % (Manual) 24.0 Reactive Lymphs % (Man) 0 Monocytes % (Manual) 8.0 H Eosinophils % (Manual) 0 Basophils % (Manual) 0 Metamyelocytes % 0 Myelocytes % 0 Promyelocytes % 0 Blast Cells % 0 Nucleated RBC % 100.0 H Seg Neutrophils # Man 8.1 H Band Neutrophils # 0.0 Lymphocytes # (Manual) 2.9 Abs React Lymphs (Man) 0.0 Monocytes # (Manual) 1.0 H Eosinophils # (Manual) 0.0 Basophils # (Manual) 0.0 Metamyelocytes # 0.0 Myelocytes # 0.0 Promyelocytes # 0.0 Blast Cells # 0.0 WBC Morphology Not Reportable Hypersegmented Neuts Not Reportable Hyposegmented Neuts Not Reportable Hypogranular Neuts Not Reportable Smudge Cells Not Reportable Toxic Granulation Not Reportable Toxic Vacuolation Not Reportable Dohle Bodies Not Reportable Pelger-Huet Anomaly Not Reportable [place] Rods Not Reportable Platelet Estimate Consistent w auto Clumped Platelets Not Reportable Plt Clumps, EDTA Not Reportable Large Platelets Not Reportable Giant Platelets Not Reportable Platelet Satelliting Not Reportable Plt Morphology Comment Not Reportable RBC Morphology Not Reportable Dimorphic RBCs Not Reportable Polychromasia Not Reportable Hypochromasia Not Reportable Poikilocytosis Not Reportable Anisocytosis 1+ Microcytosis Few Macrocytosis Not Reportable Spherocytes Rare Pappenheimer Bodies Not Reportable Sickle Cells Few Target Cells Few Tear Drop Cells Not Reportable Ovalocytes Not Reportable Helmet Cells Not Reportable Gil-[place] Bodies Not Reportable [place] Rings Not Reportable [place] Cells Not Reportable Bite Cells Not Reportable Crenated Cell Not Reportable Elliptocytes Not Reportable Acanthocytes (Spur) Not Reportable Rouleaux Not Reportable Hemoglobin C Crystals Not Reportable Schistocytes Few Malaria parasites Not Reportable Zeke Bodies Not Reportable Hem Pathologist Commnt No PT 12.4 INR 0.92 Sodium Potassium Chloride Carbon Dioxide Anion Gap BUN Creatinine Estimated GFR BUN/Creatinine Ratio Glucose Calcium Total Bilirubin AST ALT Alkaline Phosphatase Ammonia Total Protein Albumin Albumin/Globulin Ratio Hepatitis A IgM Ab Non-reactive Hep Bs Antigen Non-reactive Hep B Core IgM Ab Non-reactive Hepatitis C Antibody Reactive A 07/14/19 07/14/19 05:38 05:38 WBC RBC Hgb Hct MCV MCH MCHC RDW Plt Count Add Manual Diff Total Counted Seg Neuts % (Manual) Band Neutrophils % Lymphocytes % (Manual) Reactive Lymphs % (Man) Monocytes % (Manual) Eosinophils % (Manual) Basophils % (Manual) Metamyelocytes % Myelocytes % Promyelocytes % Blast Cells % Nucleated RBC % Seg Neutrophils # Man Band Neutrophils # Lymphocytes # (Manual) Abs React Lymphs (Man) Monocytes # (Manual) Eosinophils # (Manual) Basophils # (Manual) Metamyelocytes # Myelocytes # Promyelocytes # Blast Cells # WBC Morphology Hypersegmented Neuts Hyposegmented Neuts Hypogranular Neuts Smudge Cells Toxic Granulation Toxic Vacuolation Dohle Bodies Pelger-Huet Anomaly [place] Rods Platelet Estimate Clumped Platelets Plt Clumps, EDTA Large Platelets Giant Platelets Platelet Satelliting Plt Morphology Comment RBC Morphology Dimorphic RBCs Polychromasia Hypochromasia Poikilocytosis Anisocytosis Microcytosis Macrocytosis Spherocytes Pappenheimer Bodies Sickle Cells Target Cells Tear Drop Cells Ovalocytes Helmet Cells Gil-[place] Bodies [place] Rings Trey Cells Bite Cells Crenated Cell Elliptocytes Acanthocytes (Spur) Rouleaux Hemoglobin C Crystals Schistocytes Malaria parasites Zeke Bodies Hem Pathologist Commnt PT INR Sodium 142 Potassium 4.0 Chloride 105.4 Carbon Dioxide 23 Anion Gap 18 BUN 13 Creatinine 0.6 L Estimated GFR > 60 BUN/Creatinine Ratio 22 Glucose 114 H Calcium 8.3 L Total Bilirubin 2.40 H AST 66 H ALT 30 Alkaline Phosphatase 211 H Ammonia 70.0 H Total Protein 6.4 Albumin 3.4 L Albumin/Globulin Ratio 1.1 Hepatitis A IgM Ab Hep Bs Antigen Hep B Core IgM Ab Hepatitis C Antibody
--- NOTE | 2019-07-14 15:48 | Progress Note ---
Assessment and Plan /Sepsis due to bilateral pneumonia Cont On Sepsis protocol: IV antibiotic therapy, IV fluid resuscitation therapy, negative blood cx, /Community-acquired Pneumonia Empiric antibiotics with Rocephin and Zithromax, /Transaminitis; + hepatitis C, closely monitor trending down, GI consult /Sickle cell trait with coexistent alpha-thalassemia Hematology consulted, IV fluid resuscitation therapy, supportive care. /Leukocytosis; Secondary to pneumonia, treat underlying cause. /Symptomatic Anemia; possible SCC ? Follow H&H, transfuse as needed, hematology following /Hypokalemia; replenish per protocol and monitor levels /Elevated troponin Serial cardiac enzymes, EKG, cardiology consulted in ED, echocardiogram. No EKG changes. No evidence of ischemia on EKG. / DVT prophylaxis SCD to bilateral lower extremities while in bed, supportive care. Patient is ambulatory Disposition; follow cardiology, GI evaluation and recommendations Follow clinically, discharged when medically stable Brief History Patient is a 48 y/o male with PMH of sickle cell disease and s/p cholecystectomy who presented to ED with c/o CP, cough, and fever. He was admitted and currently being treated for sepsis 2/2 pneumonia and sickle cell pain crisis. Hospitalist Physical General appearance: Present: no acute distress, well-nourished - EENT Eyes: Present: PERRL, EOM intact - Neck Neck: Present: supple, normal ROM - Respiratory Respiratory effort: normal Respiratory: bilateral: diminished, negative: rales, rhonchi, wheezing - Cardiovascular Rhythm: regular Heart Sounds: Present: S1 & S2 - Extremities Extremities: no ischemia, No edema - Abdominal General gastrointestinal: soft, non-tender, non-distended, normal bowel sounds - Integumentary Integumentary: Present: clear, warm - Psychiatric Psychiatric: appropriate mood/affect, cooperative - Neurologic Neurologic: CNII-XII intact, moves all extremities Subjective Date of service: 07/14/19 Principal diagnosis: anemia, elevated LFTs Interval history: Patient seen and examined c/p back pain and leg pain but better today, cont to have poor appetite - but states eating few bites today have nausea but no vomiting. updated family at bedside Objective - Constitutional Vitals: Vital Signs - 12hr 07/14/19 07/14/19 07/14/19 07:55 11:05 11:23 Temperature 102.3 F H 99.9 F H Pulse Rate 103 H Respiratory 18 20 18 Rate Blood Pressure 143/96 157/94 O2 Sat by Pulse 97 99 Oximetry - Labs CBC & Chem 7: 07/14/19 05:38 07/14/19 05:38 Labs: Abnormal lab results 07/14/19 07/14/19 07/14/19 Range/Units 05:38 05:38 05:38 WBC 11.9 H (4.5-11.0) K/mm3 RBC 2.79 L (3.65-5.03) M/mm3 Hgb 8.2 L (11.8-15.2) gm/dl Hct 22.5 L (35.5-45.6) % MCV 81 L (84-94) fl MCHC 36 H (32-34) % RDW 20.0 H (13.2-15.2) % Plt Count 87 L (140-440) K/mm3 Monocytes % (Manual) 8.0 H (0.0-7.3) % Nucleated RBC % 100.0 H (0.0-0.9) % Seg Neutrophils # Man 8.1 H (1.8-7.7) K/mm3 Monocytes # (Manual) 1.0 H (0.0-0.8) K/mm3 Creatinine 0.6 L (0.8-1.5) mg/dL Glucose 114 H (75-100) mg/dL Calcium 8.3 L (8.4-10.2) mg/dL Total Bilirubin 2.40 H (0.1-1.2) mg/dL AST 66 H (5-40) units/L Alkaline Phosphatase 211 H (35-129) units/L Ammonia (25-60) umol/L Albumin 3.4 L (3.9-5) g/dL Hepatitis C Antibody Reactive A (NonReactive) 07/14/19 Range/Units 05:38 WBC (4.5-11.0) K/mm3 RBC (3.65-5.03) M/mm3 Hgb (11.8-15.2) gm/dl Hct (35.5-45.6) % MCV (84-94) fl MCHC (32-34) % RDW (13.2-15.2) % Plt Count (140-440) K/mm3 Monocytes % (Manual) (0.0-7.3) % Nucleated RBC % (0.0-0.9) % Seg Neutrophils # Man (1.8-7.7) K/mm3 Monocytes # (Manual) (0.0-0.8) K/mm3 Creatinine (0.8-1.5) mg/dL Glucose (75-100) mg/dL Calcium (8.4-10.2) mg/dL Total Bilirubin (0.1-1.2) mg/dL AST (5-40) units/L Alkaline Phosphatase (35-129) units/L Ammonia 70.0 H (25-60) umol/L Albumin (3.9-5) g/dL Hepatitis C Antibody (NonReactive)
[2019-07-14] MEDS: LACTULOSE 20 GM/30 ML ORAL LIQD PO SCH ×2 (17:40→23:32)
[2019-07-14] MEDS: IBUPROFEN 400 MG TAB PO PRN (23:31)
[2019-07-15] MEDS: LACTULOSE 20 GM/30 ML ORAL LIQD PO SCH ×3 (06:43→17:48)
[2019-07-15] MEDS: D5W/0.9% NACL 1,000 ML IV SCH ×2 (09:55→22:39)
[2019-07-15] MEDS: FOLIC ACID 1 MG TAB PO SCH (10:02)
[2019-07-15] MEDS: PANTOPRAZOLE 40 MG TAB PO SCH (10:02)
[2019-07-15] MEDS: cefTRIAXone/NS 2 GM/100 ML 2 GM/100 ML BAG IV SCH (10:02)
--- NOTE | 2019-07-15 11:37 | Progress Note ---
Assessment and Plan Chest pain Elevated troponin in the setting of multiple laboratory abnormalities normal sinus rhythm, normal ECG. Moderate to severe LVH, normal EF by echo Acute Pneumonia Elevated bilirubin Elevated liver transaminases + hepatitis C Ab Anemia/thrombocytopenia History of sickle cell trait and thalassemia Non-specific troponin elevation [place] primary hypertension with a BP 170/110 on admission An echocardiogram reports a normal LV systolic function, EF 55-60%. Recommend: Continue supportive care Doubt a primary cardiac etiology for elevated troponin Contiue to monitor blood pressure Ischemic work-up once acute medical issues resolve Subjective Date of service: 07/15/19 Principal diagnosis: anemia, elevated LFTs Interval history: Patient denies chest pain or shortness of breath this morning No cardiac events overnight Objective Vital Signs Temp Pulse Pulse Pulse Resp BP Pulse Ox 07/15/19 09:00 92 H 92 H 24 98 07/15/19 04:12 99.4 F 92 H 16 131/83 93 07/14/19 23:13 102.9 F H 105 H 24 145/87 95 07/14/19 21:32 96 07/14/19 21:00 18 98 07/14/19 20:00 107 H 07/14/19 19:26 99.6 F 103 H 28 H 160/93 96 07/14/19 16:21 100.6 F H 103 H 20 151/92 93 - Physical Examination General: No Apparent Distress HEENT: Positive: PERRL Neck: Positive: trachea midline Cardiac: Positive: Reg Rate and Rhythm Lungs: Positive: Normal Exam Neuro: Positive: Grossly Intact Extremities: Absent: edema
[2019-07-15] MEDS: HYDROmorphone 1 MG/1 ML INJ IV PRN ×3 (12:29→22:33)
[2019-07-15] MEDS: amLODIPine 5 MG TAB PO SCH (12:30)
[2019-07-15] MEDS: AZITHROMYCIN 500 MG in SODIUM CHLORIDE 0.9% 250ML 250 ML IV SCH (12:31)
--- NOTE | 2019-07-15 15:07 | Progress Note ---
Assessment and Plan /Transaminitis; LFTs trending down. 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 /Leukocytosis; Secondary to pneumonia, treat underlying cause. /Symptomatic Anemia; possible SCC ? Follow H&H, transfuse as needed, hematology following /Hypokalemia; replenish per protocol and monitor levels /Elevated troponin Serial cardiac enzymes, EKG, cardiology consulted in ED, echocardiogram. No EKG changes. No evidence of ischemia on EKG. / DVT prophylaxis SCD to bilateral lower extremities while in bed, supportive care. Patient is ambulatory Disposition; follow cardiology, GI evaluation and recommendations Follow clinically, discharge home if LFT and h/h remains stable PT eval Brief History Patient is a 48 y/o male with PMH of sickle cell disease and s/p cholecystectomy who presented to ED with c/o CP, cough, and fever. He was admitted and currently being treated for sepsis 2/2 pneumonia and sickle cell pain crisis. Hospitalist Physical General appearance: Present: no acute distress, well-nourished - EENT Eyes: Present: PERRL, EOM intact - Neck Neck: Present: supple, normal ROM - Respiratory Respiratory effort: normal Respiratory: bilateral: diminished, negative: rales, rhonchi, wheezing - Cardiovascular Rhythm: regular Heart Sounds: Present: S1 & S2 - Extremities Extremities: no ischemia, No edema - Abdominal General gastrointestinal: soft, non-tender, non-distended, normal bowel sounds - Integumentary Integumentary: Present: clear, warm - Psychiatric Psychiatric: appropriate mood/affect, cooperative - Neurologic Neurologic: CNII-XII intact, moves all extremities Subjective Date of service: 07/15/19 Principal diagnosis: anemia, elevated LFTs Interval history: Patient seen and examined c/p back pain and leg pain but better today, have nausea but no vomiting. updated family at bedside Objective - Constitutional Vitals: Vital Signs - 12hr 02/08/20 02/08/20 02/08/20 04:12 08:31 09:00 Temperature 99.4 F 99.2 F Pulse Rate 92 H 91 H Pulse Rate [ 92 H Apical] Pulse Rate [ 92 H Radial] Respiratory 16 18 24 Rate Blood Pressure 131/83 144/81 O2 Sat by Pulse 93 92 98 Oximetry 07/15/19 07/15/19 12:13 12:30 Temperature 99.1 F Pulse Rate 109 H 109 H Pulse Rate [ Apical] Pulse Rate [ Radial] Respiratory 18 Rate Blood Pressure 148/90 148/90 O2 Sat by Pulse 97 Oximetry - Labs CBC & Chem 7: 07/16/19 06:59 07/16/19 06:59
[2019-07-15 15:39] LABS: Hematocrit 20.7 % (35.5-45.6); Hemoglobin 7.3 gm/dl (11.8-15.2); Mean Corpuscular HGB Conc 35 % (32-34); Mean Corpuscular Volume 82 fl (84-94); Red Blood Count 2.53 M/mm3 (3.65-5.03)
[2019-07-15 15:59] LABS: Platelet Count 96 K/mm3 (140-440); Red Cell Distribution Width 20.3 % (13.2-15.2)
[2019-07-15 16:01] LABS: Alanine Aminotransferase 63 units/L (7-56); Albumin 2.9 g/dL (3.9-5); BUN/Creatinine Ratio 16; Blood Urea Nitrogen 11 mg/dL (9-20); Hemolysis Index 14
[2019-07-15] MEDS: IBUPROFEN 400 MG TAB PO PRN (22:34)
[2019-07-15] MEDS: METOPROLOL TARTRATE 25 MG TAB PO SCH (22:34)
[2019-07-16] MEDS: LACTULOSE 20 GM/30 ML ORAL LIQD PO SCH ×5 (01:13→23:47)
[2019-07-16] MEDS: D5W/0.9% NACL 1,000 ML IV SCH ×2 (05:54→18:00)
[2019-07-16 08:23] LABS: Alanine Aminotransferase 85 units/L (7-56); Albumin 2.7 g/dL (3.9-5); BUN/Creatinine Ratio 18; Blood Urea Nitrogen 9 mg/dL (9-20); Hemolysis Index 13
[2019-07-16] MEDS ORDERED: POTASSIUM CHLORIDE ER 20 MEQ TAB PO ONE ×2 (09:05)
[2019-07-16] MEDS: amLODIPine 5 MG TAB PO SCH (09:21)
[2019-07-16] MEDS: METOPROLOL TARTRATE 25 MG TAB PO SCH ×2 (09:21→22:00)
[2019-07-16] MEDS: cefTRIAXone/NS 2 GM/100 ML 2 GM/100 ML BAG IV SCH (09:21)
[2019-07-16] MEDS: FOLIC ACID 1 MG TAB PO SCH (09:22)
[2019-07-16] MEDS: PANTOPRAZOLE 40 MG TAB PO SCH (09:22)
[2019-07-16] MEDS: HYDROmorphone 1 MG/1 ML INJ IV PRN ×3 (09:22→19:33)
[2019-07-16 09:54] LABS: Hematocrit 17.1 % (35.5-45.6)
[2019-07-16] MEDS ORDERED: SODIUM CHLORIDE 0.9% 500 ML 500 ML IV ONE (10:34)
--- NOTE | 2019-07-16 10:55 | Progress Note ---
Assessment and Plan Chest pain Elevated troponin in the setting of multiple laboratory abnormalities normal sinus rhythm, normal ECG. Moderate to severe LVH, normal EF by echo Acute Pneumonia Elevated bilirubin and ammonia levels Elevated liver transaminases + hepatitis C Ab Anemia/thrombocytopenia History of sickle cell trait and thalassemia Non-specific troponin elevation Essentail primary hypertension with a BP 170/110 on admission An echocardiogram reports a normal LV systolic function, EF 55-60%. Recommend: Continue supportive care Doubt a primary cardiac etiology for elevated troponin Contiue to monitor blood pressure Ischemic work-up once acute medical issues resolve (can be performed as outpatient) Subjective Date of service: 07/16/19 Principal diagnosis: anemia, elevated LFTs Interval history: Patient denies chest pain or shortness of breath this morning No cardiac events overnight Objective Vital Signs Temp Pulse Resp BP Pulse Ox 07/16/19 09:21 90 145/90 07/16/19 08:57 98 07/16/19 08:39 98.7 F 91 H 18 151/88 98 07/16/19 04:35 82 07/16/19 03:56 98.7 F 89 20 126/83 90 07/16/19 03:46 89 07/16/19 00:12 99.8 F H 84 20 132/80 98 07/15/19 22:34 108 H 141/88 07/15/19 21:25 96 07/15/19 21:00 20 07/15/19 20:00 115 H 07/15/19 19:45 101.2 F H 108 H 20 141/88 96 07/15/19 19:00 108 H 07/15/19 17:11 98.5 F 110 H 18 145/93 91 07/15/19 12:30 109 H 148/90 07/15/19 12:13 99.1 F 109 H 18 148/90 97 07/15/19 12:00 108 H - Physical Examination General: No Apparent Distress HEENT: Positive: PERRL Neck: Positive: trachea midline Cardiac: Positive: Reg Rate and Rhythm Lungs: Positive: Normal Exam Neuro: Positive: Grossly Intact Extremities: Absent: edema - Labs and Meds Cardiac Enzymes 07/15/19 07/16/19 Range/Units 15:20 06:59 AST 135 H 168 H (5-40) units/L CBC 07/15/19 07/16/19 Range/Units 15:14 06:59 WBC 13.2 H (4.5-11.0) K/mm3 RBC 2.53 L (3.65-5.03) M/mm3 Hgb 7.3 L 6.0 L (11.8-15.2) gm/dl Hct 20.7 L 17.1 L* (35.5-45.6) % Plt Count 96 L (140-440) K/mm3 Comprehensive Metabolic Panel 07/15/19 07/16/19 Range/Units 15:20 06:59 Sodium 138 139 (137-145) mmol/L Potassium 3.2 L 2.9 L* (3.6-5.0) mmol/L Chloride 104.9 104.8 (98-107) mmol/L Carbon Dioxide 21 L 21 L (22-30) mmol/L BUN 11 9 (9-20) mg/dL Creatinine 0.7 L 0.5 L (0.8-1.5) mg/dL Glucose 109 H 227 H (75-100) mg/dL Calcium 8.0 L 8.0 L (8.4-10.2) mg/dL AST 135 H 168 H (5-40) units/L ALT 63 H 85 H (7-56) units/L Alkaline Phosphatase 183 H 180 H (35-129) units/L Total Protein 6.5 6.0 L (6.3-8.2) g/dL Albumin 2.9 L 2.7 L (3.9-5) g/dL
[2019-07-16] MEDS: PANTOPRAZOLE 40 MG INJ IV SCH (11:14)
[2019-07-16] MEDS: POTASSIUM CHLORIDE 10 MEQ 10 MEQ/100 ML BAG IV SCH ×3 (11:15→13:11)
[2019-07-16] MEDS: AZITHROMYCIN 500 MG in SODIUM CHLORIDE 0.9% 250ML 250 ML IV SCH (12:34)
--- NOTE | 2019-07-16 13:56 | Progress Note ---
Assessment and Plan /Sepsis due to bilateral pneumonia Cont On Sepsis protocol: IV antibiotic therapy, IV fluid resuscitation therapy, negative blood cx, /Community-acquired Pneumonia Empiric antibiotics with Rocephin and Zithromax, /Severe hypokalemia, cont to replete, check Mg /Transaminitis; LFTs trending down. 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 Hb 6.0 today , transfuse one unit /Leukocytosis; Secondary to pneumonia, treat underlying cause. /Symptomatic Anemia; possible SCC ? Follow H&H, transfuse as needed, hematology following Hb 6.0 today , transfuse one unit /Hypokalemia; replenish per protocol and monitor levels /Elevated troponin Serial cardiac enzymes, EKG, cardiology consulted in ED, echocardiogram. No EKG changes. No evidence of ischemia on EKG. /Protein calorie malnutrition - consult dietary / DVT prophylaxis SCD to bilateral lower extremities while in bed, supportive care. Patient is ambulatory Disposition; follow cardiology, GI evaluation and recommendations Follow clinically, discharge home if LFT and h/h remains stable PT eval Brief History Patient is a 48 y/o male with PMH of sickle cell disease and s/p cholecystectomy who presented to ED with c/o CP, cough, and fever. He was admitted and currently being treated for sepsis 2/2 pneumonia and sickle cell pain crisis. Hospitalist Physical General appearance: Present: no acute distress, well-nourished - EENT Eyes: Present: PERRL, EOM intact - Neck Neck: Present: supple, normal ROM - Respiratory Respiratory effort: normal Respiratory: bilateral: diminished, negative: rales, rhonchi, wheezing - Cardiovascular Rhythm: regular Heart Sounds: Present: S1 & S2 - Extremities Extremities: no ischemia, No edema - Abdominal General gastrointestinal: soft, non-tender, non-distended, normal bowel sounds - Integumentary Integumentary: Present: clear, warm - Psychiatric Psychiatric: appropriate mood/affect, cooperative - Neurologic Neurologic: CNII-XII intact, moves all extremities Subjective Date of service: 07/16/19 Principal diagnosis: anemia, elevated LFTs Interval history: Patient seen and examined Hb dropped to 6.0 today have nausea but no vomiting. updated family at bedside Objective - Constitutional Vitals: Vital Signs - 12hr 07/16/19 07/16/19 07/16/19 03:46 03:56 04:35 Temperature 98.7 F Pulse Rate 89 89 82 Pulse Rate [ Apical] Pulse Rate [ Radial] Respiratory 20 Rate Blood Pressure 126/83 O2 Sat by Pulse 90 Oximetry 07/16/19 07/16/19 07/16/19 08:39 08:57 09:00 Temperature 98.7 F Pulse Rate 91 H Pulse Rate [ 99 H Apical] Pulse Rate [ 99 H Radial] Respiratory 18 19 Rate Blood Pressure 151/88 O2 Sat by Pulse 98 98 Oximetry 07/16/19 07/16/19 07/16/19 09:21 09:25 10:00 Temperature Pulse Rate 90 99 H Pulse Rate [ Apical] Pulse Rate [ Radial] Respiratory Rate Blood Pressure 145/90 145/90 O2 Sat by Pulse Oximetry 07/16/19 12:24 Temperature Pulse Rate 92 H Pulse Rate [ Apical] Pulse Rate [ Radial] Respiratory Rate Blood Pressure 146/93 O2 Sat by Pulse 100 Oximetry - Labs CBC & Chem 7: 07/18/19 11:43 07/16/19 13:40 Labs: Abnormal lab results 07/15/19 07/15/19 07/16/19 Range/Units 15:14 15:20 06:59 WBC 13.2 H (4.5-11.0) K/mm3 RBC 2.53 L (3.65-5.03) M/mm3 Hgb 7.3 L 6.0 L (11.8-15.2) gm/dl Hct 20.7 L 17.1 L* (35.5-45.6) % MCV 82 L (84-94) fl MCHC 35 H (32-34) % RDW 20.3 H (13.2-15.2) % Plt Count 96 L (140-440) K/mm3 Potassium 3.2 L (3.6-5.0) mmol/L Carbon Dioxide 21 L (22-30) mmol/L Creatinine 0.7 L (0.8-1.5) mg/dL Glucose 109 H (75-100) mg/dL Calcium 8.0 L (8.4-10.2) mg/dL Total Bilirubin 1.50 H (0.1-1.2) mg/dL AST 135 H (5-40) units/L ALT 63 H (7-56) units/L Alkaline Phosphatase 183 H (35-129) units/L Total Protein (6.3-8.2) g/dL Albumin 2.9 L (3.9-5) g/dL 07/16/19 Range/Units 06:59 WBC (4.5-11.0) K/mm3 RBC (3.65-5.03) M/mm3 Hgb (11.8-15.2) gm/dl Hct (35.5-45.6) % MCV (84-94) fl MCHC (32-34) % RDW (13.2-15.2) % Plt Count (140-440) K/mm3 Potassium 2.9 L* (3.6-5.0) mmol/L Carbon Dioxide 21 L (22-30) mmol/L Creatinine 0.5 L (0.8-1.5) mg/dL Glucose 227 H (75-100) mg/dL Calcium 8.0 L (8.4-10.2) mg/dL Total Bilirubin 1.70 H (0.1-1.2) mg/dL AST 168 H (5-40) units/L ALT 85 H (7-56) units/L Alkaline Phosphatase 180 H (35-129) units/L Total Protein 6.0 L (6.3-8.2) g/dL Albumin 2.7 L (3.9-5) g/dL
[2019-07-16 14:32] LABS: Hemoglobin 6.4 gm/dl (11.8-15.2)
[2019-07-16 16:03] LABS: Hematocrit 17.4 % (35.5-45.6)
[2019-07-16] MEDS: IBUPROFEN 400 MG TAB PO PRN (17:21)
[2019-07-17] MEDS: HYDROmorphone 1 MG/1 ML INJ IV PRN ×3 (06:00→18:45)
[2019-07-17] MEDS: LACTULOSE 20 GM/30 ML ORAL LIQD PO SCH ×3 (06:01→17:17)
[2019-07-17] MEDS: D5W/0.9% NACL 1,000 ML IV SCH ×3 (06:07→22:50)
[2019-07-17 07:28] LABS: Mean Corpuscular HGB Conc 36 % (32-34); Mean Corpuscular Volume 81 fl (84-94); Platelet Count 117 K/mm3 (140-440); Red Blood Count 1.95 M/mm3 (3.65-5.03); Red Cell Distribution Width 18.8 % (13.2-15.2)
--- NOTE | 2019-07-17 07:39 | Hem/Onc Progress Note ---
Assessment and Plan 1. Anemia with radiological changes for sickle changes. The patient has hemoglobin but probably this is more than that this may be SS or other form. hemoglobin electrophoresis. 2. Pain issues, on pain medications. 3. Fever issues, on antibiotics. 4. Hydration may help the patient. 5. folic acid. 6. The patient states that his pain is sickle cell crisis. This is very infrequent, once every 5 years. Once this crisis improves, outpatient discussion regarding need or option for Hydrea can be done. 7. Elevated troponin. 8. 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 We will try to get more information for same. pt says - does not know about alpha thal pain better refused prbc smear mentions hb c crystals hb electrophoresis pending - Patient Problems (1) Sickle cell pain crisis Current Visit: Yes Status: Acute Subjective Date of service: 07/17/19 Principal diagnosis: anemia Interval history: pain better - refused prbc Objective - Exam Narrative Exam: Pain - better General appearance - awake Performance status limited self care Eyes - no icterus ENT - no bleeding LNs cervical not palpable Neck - no LN Respiratory Normal - on o2 Breath sounds - CTA anteriorly CVS S1 S2 + Extremities no edema General GI Soft Rectal deferred male - deferred Skin warm Musculoskeletal - moves arms and legs Neurologically - awake - Constitutional Vitals: Last Vital Signs Temp 99.7 F H 07/17/19 04:05 Pulse 94 H 07/17/19 04:05 Resp 18 07/17/19 06:00 BP 151/83 07/17/19 04:05 Pulse Ox 90 07/17/19 04:05 - Labs Lab Results: Laboratory Results - last 24 hr 07/16/19 07/16/19 07/16/19 06:59 06:59 13:40 Hgb 6.0 L Hct 17.1 L* Sodium 139 Potassium 2.9 L* 3.5 L D Chloride 104.8 Carbon Dioxide 21 L Anion Gap 16 BUN 9 Creatinine 0.5 L Estimated GFR > 60 BUN/Creatinine Ratio 18 Glucose 227 H Calcium 8.0 L Total Bilirubin 1.70 H AST 168 H ALT 85 H Alkaline Phosphatase 180 H Total Protein 6.0 L Albumin 2.7 L Albumin/Globulin Ratio 0.8 Blood Type Antibody Screen Crossmatch 07/16/19 07/16/19 13:40 13:41 Hgb 6.4 L Hct 17.4 L* Sodium Potassium Chloride Carbon Dioxide Anion Gap BUN Creatinine Estimated GFR BUN/Creatinine Ratio Glucose Calcium Total Bilirubin AST ALT Alkaline Phosphatase Total Protein Albumin Albumin/Globulin Ratio Blood Type B NEGATIVE Antibody Screen Negative Crossmatch See Detail Medications & Allergies - Medications Allergies/Adverse Reactions: Allergies No Known Allergies Allergy (Verified 07/10/19 03:27) Home Medications: Home Medications Medication Instructions Recorded Confirmed Last Taken Type Azithromycin [Zithromax TAB] 250 mg PO QDAY 5 Days #6 tablet 07/06/19 07/11/19 Unknown Rx Benzonatate [Tessalon Perles] 100 mg PO Q8HR PRN #14 capsule 07/06/19 07/11/19 Unknown Rx Prednisone [predniSONE 10 mg 10 mg PO .TAPER #1 tab.ds.pk 07/06/19 07/11/19 Unknown Rx (6-Day Pack, 21 Tabs)] oxyCODONE /ACETAMINOPHEN [Percocet 1 tab PO Q6HR PRN #10 tablet 07/10/19 07/11/19 Unknown Rx 5/325] Active Medications: Generic Name Dose Route Start Last Admin Trade Name Freq PRN Reason Stop Dose Admin Albuterol 2.5 mg 07/11/19 14:59 07/13/19 04:18 Proventil IH 2.5 mg Q4HRT PRN Administration Shortness Of Breath Amlodipine Besylate 2.5 mg 07/15/19 12:00 07/16/19 09:21 Amlodipine PO 2.5 mg QDAY JHON Administration Folic Acid 1 mg 07/12/19 10:00 07/16/19 09:22 Folvite PO 1 mg QDAY JHON Administration Hydralazine HCl 5 mg 07/11/19 20:21 07/13/19 10:24 Apresoline IV 5 mg Q4HR PRN Administration Blood Pressure Hydromorphone HCl 0.5 mg 07/11/19 11:30 07/17/19 06:00 Dilaudid IV 0.5 mg Q4H PRN Administration Pain , Severe (7-10) Azithromycin 500 mg/ Sodium 250 mls @ 250 mls/hr 07/11/19 12:00 07/16/19 12:34 Chloride IV 250 mls/hr Q24H JHON Administration Protocol Ceftriaxone Sodium 2 gm in 100 mls @ 200 mls/hr 07/11/19 12:00 07/16/19 09:21 Rocephin/Ns 2 Gm/100 Ml IV 200 mls/hr Q24HR JHON Administration Protocol Dextrose/Sodium Chloride 1,000 mls @ 125 mls/hr 07/13/19 17:00 07/17/19 06:07 D5ns IV 125 mls/hr DIRECT JHON Administration Ibuprofen 400 mg 07/13/19 17:30 07/16/19 17:21 Ibuprofen PO 400 mg Q6H PRN Administration Fever >101 Lactulose 20 gm 07/14/19 18:00 07/17/19 06:01 Cephulac PO 20 gm Q6HR JHON Administration Metoprolol Tartrate 25 mg 07/15/19 22:00 07/16/19 22:00 Metoprolol PO 25 mg BID JHON Administration Ondansetron HCl 4 mg 07/11/19 14:59 Zofran IV Q8H PRN Nausea And Vomiting Pantoprazole Sodium 40 mg 07/16/19 11:00 07/16/19 11:14 Protonix IV 40 mg QDAY JHON Administration Sodium Chloride 10 ml 07/11/19 22:00 07/16/19 22:01 Sodium Chloride Flush Syringe 10 Ml IV 10 ml BID JHON Administration Sodium Chloride 10 ml 07/11/19 14:59 07/17/19 00:06 Sodium Chloride Flush Syringe 10 Ml IV 10 ml PRN PRN Administration LINE FLUSH
[2019-07-17 07:52] LABS: Albumin 2.9 g/dL (3.9-5); Bilirubin,Direct 0.9 mg/dL (0-0.2)
[2019-07-17 08:10] LABS: Hematocrit 15.8 % (35.5-45.6); Hemoglobin 5.7 gm/dl (11.8-15.2)
--- NOTE | 2019-07-17 09:10 | Progress Note ---
Assessment and Plan Chest pain Elevated troponin in the setting of multiple laboratory abnormalities normal sinus rhythm, normal ECG. Acute Pneumonia Elevated bilirubin Elevated liver transaminases + hepatitis C Ab Severe Anemia Thrombocytopenia History of sickle cell trait and thalassemia Essential primary hypertension with a BP 170/110 on admission An echocardiogram reports a normal LV systolic function, EF 55-60%. Recommend: Continue supportive care. Ischemic work-up once acute medical issues resolve. This can be performed as an outpatient. Subjective Date of service: 07/17/19 Principal diagnosis: anemia Interval history: Patient noted with severe anemia, HCT 15.8. He denies chest pain and shortness of breath. He denies black tarry stools or hematuria. Patient also refused blood transfusion. Objective Vital Signs Temp Pulse Pulse Pulse Resp Resp BP 07/17/19 06:00 18 07/17/19 04:05 99.7 F H 94 H 20 151/83 07/17/19 00:22 98.8 F 77 20 134/83 07/17/19 00:00 95 H 07/16/19 22:00 111 H 125/86 07/16/19 21:00 85 82 20 20 07/16/19 20:10 07/16/19 19:41 98.9 F 111 H 18 125/86 07/16/19 16:56 101.9 F H 109 H 18 133/84 07/16/19 12:24 92 H 146/93 07/16/19 10:00 99 H 07/16/19 09:25 145/90 07/16/19 09:21 90 145/90 Pulse Ox 07/17/19 06:00 07/17/19 04:05 90 07/17/19 00:22 98 07/17/19 00:00 07/16/19 22:00 07/16/19 21:00 07/16/19 20:10 97 07/16/19 19:41 100 07/16/19 16:56 98 07/16/19 12:24 100 07/16/19 10:00 07/16/19 09:25 07/16/19 09:21 - Physical Examination General: No Apparent Distress HEENT: Positive: PERRL Neck: Positive: trachea midline Cardiac: Positive: Reg Rate and Rhythm Lungs: Positive: Decreased Breath Sounds Neuro: Positive: Grossly Intact Extremities: Absent: edema - Labs and Meds Cardiac Enzymes 07/17/19 07/17/19 Range/Units 06:48 07:51 AST 127 H (5-40) units/L Lactate Dehydrogenase 1945 H (91-180) units/L CBC 07/16/19 07/16/19 07/17/19 Range/Units 06:59 13:40 06:48 RBC 1.95 L (3.65-5.03) M/mm3 Hgb 6.0 L 6.4 L 5.7 L* (11.8-15.2) gm/dl Hct 17.1 L* 17.4 L* 15.8 L* (35.5-45.6) % Plt Count 117 L (140-440) K/mm3 Comprehensive Metabolic Panel 07/16/19 07/17/19 Range/Units 13:40 06:48 Potassium 3.5 L D (3.6-5.0) mmol/L Direct Bilirubin 0.9 H (0-0.2) mg/dL Indirect Bilirubin 1.2 mg/dL AST 127 H (5-40) units/L ALT 92 H (7-56) units/L Alkaline Phosphatase 214 H (35-129) units/L Total Protein 6.4 (6.3-8.2) g/dL Albumin 2.9 L (3.9-5) g/dL
[2019-07-17] MEDS: PANTOPRAZOLE 40 MG INJ IV SCH (09:51)
[2019-07-17] MEDS: FOLIC ACID 1 MG TAB PO SCH (09:51)
[2019-07-17] MEDS: METOPROLOL TARTRATE 25 MG TAB PO SCH ×2 (09:52→22:49)
[2019-07-17] MEDS: amLODIPine 5 MG TAB PO SCH (09:52)
[2019-07-17] MEDS: cefTRIAXone/NS 2 GM/100 ML 2 GM/100 ML BAG IV SCH (09:53)
[2019-07-17 10:41] LABS: Basophils % (Manual) 0 % (0.0-1.8); Total Cells Counted 100
[2019-07-17 10:42] LABS: Band Neutrophils # (Manual) 0.7 K/mm3
[2019-07-17 10:43] LABS: Hgb C Crystals 2+; Spherocytes Few; Target Cells 1+
[2019-07-17 10:44] LABS: Hypochromasia 1+; Platelet Estimate Consistent w Auto
[2019-07-17] MEDS: AZITHROMYCIN 500 MG in SODIUM CHLORIDE 0.9% 250ML 250 ML IV SCH (11:23)
--- NOTE | 2019-07-17 17:32 | Progress Note ---
Assessment and Plan /Sepsis due to bilateral pneumonia Cont On Sepsis protocol: IV antibiotic therapy, IV fluid resuscitation therapy, negative blood cx, /Severe anemia - due to Sickle cell trait with coexistent alpha-thalassemia Hematology consulted, IV fluid resuscitation therapy, supportive care. Hb 5.7 today , refusing transfusion - will defer to hematology /Community-acquired Pneumonia Empiric antibiotics with Rocephin and Zithromax, /Severe hypokalemia, cont to replete, check Mg /Transaminitis; etiology likely multifactorial due to hemolytic process, sepsis + hepatitis C, closely monitor cont to trend, GI following /hyperammonemia - placed on lactulose /Sickle cell trait with coexistent alpha-thalassemia Hematology consulted, IV fluid resuscitation therapy, supportive care. Hb 5.7 today , refusing transfusion - will defer to hematology /Leukocytosis; Secondary to pneumonia, treat underlying cause. /Symptomatic Anemia; possible SCC ? Follow H&H, transfuse as needed, hematology following Hb 6.0 today , transfuse one unit /Hypokalemia; replenish per protocol and monitor levels /Elevated troponin Serial cardiac enzymes, EKG, cardiology consulted in ED, echocardiogram. No EKG changes. No evidence of ischemia on EKG. /Protein calorie malnutrition - consult dietary / DVT prophylaxis SCD to bilateral lower extremities while in bed, supportive care. Patient is ambulatory Disposition; follow cardiology, GI evaluation and recommendations Follow clinically, discharge home if LFT and h/h remains stable PT eval Brief History Patient is a 48 y/o male with PMH of sickle cell disease and s/p cholecystectomy who presented to ED with c/o CP, cough, and fever. He was admitted and currently being treated for sepsis 2/2 pneumonia and sickle cell pain crisis. Hospitalist Physical General appearance: Present: no acute distress, well-nourished - EENT Eyes: Present: PERRL, EOM intact - Neck Neck: Present: supple, normal ROM - Respiratory Respiratory effort: normal Respiratory: bilateral: diminished, negative: rales, rhonchi, wheezing - Cardiovascular Rhythm: regular Heart Sounds: Present: S1 & S2 - Extremities Extremities: no ischemia, No edema - Abdominal General gastrointestinal: soft, non-tender, non-distended, normal bowel sounds - Integumentary Integumentary: Present: clear, warm - Psychiatric Psychiatric: appropriate mood/affect, cooperative - Neurologic Neurologic: CNII-XII intact, moves all extremities Subjective Date of service: 07/17/19 Principal diagnosis: anemia Interval history: Patient seen and examined Hb dropped to 5.7 today - refusing transfusion as he got hep C by prior transfusion have nausea but no vomiting. updated family at bedside Objective - Constitutional Vitals: Vital Signs - 12hr 07/17/19 07/17/19 07/17/19 06:00 08:07 09:00 Temperature 99.1 F Pulse Rate 101 H Pulse Rate [ 102 H Apical] Pulse Rate [ 102 H Radial] Respiratory 18 20 19 Rate Respiratory 16 Rate [ Generalized] Blood Pressure 144/82 O2 Sat by Pulse 97 97 Oximetry 07/17/19 07/17/19 07/17/19 09:52 09:54 10:00 Temperature Pulse Rate 104 H 104 H Pulse Rate [ Apical] Pulse Rate [ Radial] Respiratory Rate Respiratory Rate [ Generalized] Blood Pressure 160/84 160/84 O2 Sat by Pulse 99 98 Oximetry 07/17/19 07/17/19 07/17/19 11:38 11:57 15:17 Temperature 100.5 F H 100.4 F H Pulse Rate 92 H 110 H Pulse Rate [ Apical] Pulse Rate [ Radial] Respiratory 16 19 24 Rate Respiratory Rate [ Generalized] Blood Pressure 118/71 135/84 O2 Sat by Pulse 99 89 Oximetry - Labs CBC & Chem 7: 07/18/19 11:43 07/16/19 13:40 Labs: Abnormal lab results 07/17/19 07/17/19 07/17/19 Range/Units 06:48 06:48 07:51 WBC 11.6 H (4.5-11.0) K/mm3 RBC 1.95 L (3.65-5.03) M/mm3 Hgb 5.7 L* (11.8-15.2) gm/dl Hct 15.8 L* (35.5-45.6) % MCV 81 L (84-94) fl MCHC 36 H (32-34) % RDW 18.8 H (13.2-15.2) % Plt Count 117 L (140-440) K/mm3 Monocytes % (Manual) 8.0 H (0.0-7.3) % Nucleated RBC % 81.0 H (0.0-0.9) % Monocytes # (Manual) 0.9 H (0.0-0.8) K/mm3 Total Bilirubin 2.10 H (0.1-1.2) mg/dL Direct Bilirubin 0.9 H (0-0.2) mg/dL AST 127 H (5-40) units/L ALT 92 H (7-56) units/L Alkaline Phosphatase 214 H (35-129) units/L Lactate Dehydrogenase 1945 H (91-180) units/L Albumin 2.9 L (3.9-5) g/dL
[2019-07-17] MEDS: CYANOCOBALAMIN (VIT B-12) 1000 MCG TAB PO SCH (17:47)
[2019-07-18] MEDS: LACTULOSE 20 GM/30 ML ORAL LIQD PO SCH ×4 (05:07→23:15)
--- NOTE | 2019-07-18 07:36 | Hem/Onc Progress Note ---
Assessment and Plan 1. Anemia with radiological changes for sickle changes. The patient has hemoglobin but probably this is more than that this may be SS or other form. hemoglobin electrophoresis. 2. Pain issues, on pain medications. 3. Fever issues, on antibiotics. 4. Hydration may help the patient. 5. folic acid. 6. The patient states that his pain is sickle cell crisis. This is very infrequent, once every 5 years. Once this crisis improves, outpatient discussion regarding need or option for Hydrea can be done. 7. Elevated troponin. 8. 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 We will try to get more information for same. pt says - does not know about alpha thal pain better smear mentions hb c crystals this pt may have hbc disease - will await hb electrophoresis - agrees to prbc - will give 1 unit and follow - Patient Problems (1) Sickle cell pain crisis Current Visit: Yes Status: Acute Subjective Date of service: 07/18/19 Principal diagnosis: anemia Interval history: no chest pain Objective - Exam Narrative Exam: Pain - better General appearance - awake Performance status limited self care Eyes - no icterus ENT - no bleeding LNs cervical not palpable Neck - no LN Respiratory Normal - on o2 Breath sounds - CTA anteriorly CVS S1 S2 + Extremities no edema General GI Soft Rectal deferred male - deferred Skin warm Musculoskeletal - moves arms and legs Neurologically - awake - Constitutional Vitals: Last Vital Signs Temp 99.8 F H 07/18/19 03:56 Pulse 104 H 07/18/19 03:56 Resp 18 07/18/19 03:56 BP 141/83 07/18/19 03:56 Pulse Ox 92 07/18/19 03:56 - Labs Lab Results: Laboratory Results - last 24 hr 07/17/19 07/17/19 07/17/19 06:48 06:48 07:51 WBC 11.6 H RBC 1.95 L Hgb 5.7 L* Hct 15.8 L* MCV 81 L MCH 29 MCHC 36 H RDW 18.8 H Plt Count 117 L Add Manual Diff Complete Total Counted 100 Seg Neuts % (Manual) 64.0 Band Neutrophils % 6.0 Lymphocytes % (Manual) 20.0 Reactive Lymphs % (Man) 0 Monocytes % (Manual) 8.0 H Eosinophils % (Manual) 2.0 Basophils % (Manual) 0 Metamyelocytes % 0 Myelocytes % 0 Promyelocytes % 0 Blast Cells % 0 Nucleated RBC % 81.0 H Seg Neutrophils # Man 7.4 Band Neutrophils # 0.7 Lymphocytes # (Manual) 2.3 Abs React Lymphs (Man) 0.0 Monocytes # (Manual) 0.9 H Eosinophils # (Manual) 0.2 Basophils # (Manual) 0.0 Metamyelocytes # 0.0 Myelocytes # 0.0 Promyelocytes # 0.0 Blast Cells # 0.0 WBC Morphology Not Reportable Hypersegmented Neuts Not Reportable Hyposegmented Neuts Not Reportable Hypogranular Neuts Not Reportable Smudge Cells Not Reportable Toxic Granulation Not Reportable Toxic Vacuolation Not Reportable Dohle Bodies Not Reportable Pelger-Huet Anomaly Not Reportable [place] Rods Not Reportable Platelet Estimate Consistent w auto Clumped Platelets Not Reportable Plt Clumps, EDTA Not Reportable Large Platelets Not Reportable Giant Platelets Not Reportable Platelet Satelliting Not Reportable Plt Morphology Comment Not Reportable RBC Morphology Not Reportable Dimorphic RBCs Not Reportable Polychromasia Not Reportable Hypochromasia 1+ Poikilocytosis Not Reportable Anisocytosis Not Reportable Microcytosis Not Reportable Macrocytosis Not Reportable Spherocytes Few Pappenheimer Bodies Not Reportable Sickle Cells Not Reportable Target Cells 1+ Tear Drop Cells Not Reportable Ovalocytes Not Reportable Helmet Cells Not Reportable Gil-[place]omer Bodies Not Reportable [place] Rings Not Reportable Trey Cells Not Reportable Bite Cells Not Reportable Crenated Cell Not Reportable Elliptocytes Not Reportable Acanthocytes (Spur) Not Reportable Rouleaux Not Reportable Hemoglobin C Crystals 2+ Schistocytes Not Reportable Malaria parasites Not Reportable Zeke Bodies Not Reportable Hem Pathologist Commnt No Total Bilirubin 2.10 H Direct Bilirubin 0.9 H Indirect Bilirubin 1.2 AST 127 H ALT 92 H Alkaline Phosphatase 214 H Lactate Dehydrogenase 1945 H Total Protein 6.4 Albumin 2.9 L Albumin/Globulin Ratio 0.8 Medications & Allergies - Medications Allergies/Adverse Reactions: Allergies No Known Allergies Allergy (Verified 07/10/19 03:27) Home Medications: Home Medications Medication Instructions Recorded Confirmed Last Taken Type Azithromycin [Zithromax TAB] 250 mg PO QDAY 5 Days #6 tablet 07/06/19 07/11/19 Unknown Rx Benzonatate [Tessalon Perles] 100 mg PO Q8HR PRN #14 capsule 07/06/19 07/11/19 Unknown Rx Prednisone [predniSONE 10 mg 10 mg PO .TAPER #1 tab.ds.pk 07/06/19 07/11/19 Unknown Rx (6-Day Pack, 21 Tabs)] oxyCODONE /ACETAMINOPHEN [Percocet 1 tab PO Q6HR PRN #10 tablet 07/10/19 07/11/19 Unknown Rx 5/325] Active Medications: Generic Name Dose Route Start Last Admin Trade Name Freq PRN Reason Stop Dose Admin Albuterol 2.5 mg 07/11/19 14:59 07/13/19 04:18 Proventil IH 2.5 mg Q4HRT PRN Administration Shortness Of Breath Amlodipine Besylate 2.5 mg 07/15/19 12:00 07/17/19 09:52 Amlodipine PO 2.5 mg QDAY JHON Administration Cyanocobalamin 2,000 mcg 07/17/19 18:00 07/17/19 17:47 Vitamin B-12 PO 2,000 mcg QDAY JHON Administration Folic Acid 1 mg 07/12/19 10:00 07/17/19 09:51 Folvite PO 1 mg QDAY JHON Administration Hydralazine HCl 5 mg 07/11/19 20:21 07/13/19 10:24 Apresoline IV 5 mg Q4HR PRN Administration Blood Pressure Hydromorphone HCl 0.5 mg 07/11/19 11:30 07/17/19 18:45 Dilaudid IV 0.5 mg Q4H PRN Administration Pain , Severe (7-10) Azithromycin 500 mg/ Sodium 250 mls @ 250 mls/hr 07/11/19 12:00 07/17/19 11:23 Chloride IV 250 mls/hr Q24H JHON Administration Protocol Ceftriaxone Sodium 2 gm in 100 mls @ 200 mls/hr 07/11/19 12:00 07/17/19 09:53 Rocephin/Ns 2 Gm/100 Ml IV 200 mls/hr Q24HR JHON Administration Protocol Dextrose/Sodium Chloride 1,000 mls @ 125 mls/hr 07/13/19 17:00 07/17/19 22:50 D5ns IV 125 mls/hr DIRECT JHON Administration Ibuprofen 400 mg 07/13/19 17:30 07/16/19 17:21 Ibuprofen PO 400 mg Q6H PRN Administration Fever >101 Lactulose 20 gm 07/14/19 18:00 07/18/19 05:07 Cephulac PO 20 gm Q6HR JHON Administration Metoprolol Tartrate 25 mg 07/15/19 22:00 07/17/19 22:49 Metoprolol PO 25 mg BID JHON Administration Ondansetron HCl 4 mg 07/11/19 14:59 Zofran IV Q8H PRN Nausea And Vomiting Pantoprazole Sodium 40 mg 07/16/19 11:00 07/17/19 09:51 Protonix IV 40 mg QDAY JHON Administration Sodium Chloride 10 ml 07/11/19 22:00 07/17/19 09:52 Sodium Chloride Flush Syringe 10 Ml IV 10 ml BID JHON Administration Sodium Chloride 10 ml 07/11/19 14:59 07/17/19 00:06 Sodium Chloride Flush Syringe 10 Ml IV 10 ml PRN PRN Administration LINE FLUSH
[2019-07-18] MEDS ORDERED: SODIUM CHLORIDE 0.9% 500 ML 500 ML IV ONE (08:30)
[2019-07-18] MEDS: cefTRIAXone/NS 2 GM/100 ML 2 GM/100 ML BAG IV SCH (09:52)
[2019-07-18] MEDS: CYANOCOBALAMIN (VIT B-12) 1000 MCG TAB PO SCH (09:52)
[2019-07-18] MEDS: amLODIPine 5 MG TAB PO SCH (09:52)
[2019-07-18] MEDS: FOLIC ACID 1 MG TAB PO SCH (09:53)
[2019-07-18] MEDS: PANTOPRAZOLE 40 MG TAB PO SCH (09:53)
[2019-07-18] MEDS: METOPROLOL TARTRATE 25 MG TAB PO SCH ×2 (09:53→21:17)
[2019-07-18] MEDS: D5W/0.9% NACL 1,000 ML IV SCH (10:34)
--- NOTE | 2019-07-18 11:02 | Progress Note ---
Assessment and Plan Chest pain Elevated troponin in the setting of multiple laboratory abnormalities normal sinus rhythm, normal ECG. Acute Pneumonia Elevated bilirubin Elevated liver transaminases + hepatitis C Ab Severe Anemia Thrombocytopenia History of sickle cell trait and thalassemia Essential primary hypertension with a BP 170/110 on admission An echocardiogram reports a normal LV systolic function, EF 55-60%. Recommend: Continue supportive care. Ischemic work-up once acute medical issues resolve. This can be performed as an outpatient. Subjective Date of service: 07/18/19 Principal diagnosis: anemia Interval history: Patient denies chest pain and shortness of breath. Objective Vital Signs Temp Pulse Pulse Pulse Resp Resp BP 07/18/19 10:00 07/18/19 09:53 101 H 147/83 07/18/19 09:52 101 H 147/83 07/18/19 08:32 98.1 F 98 H 14 141/85 07/18/19 03:56 99.8 F H 104 H 18 141/83 07/18/19 00:00 106 H 07/17/19 23:18 99.7 F H 106 H 18 147/87 07/17/19 22:49 118 H 143/84 07/17/19 21:00 102 H 102 H 19 16 07/17/19 19:25 118 H 18 07/17/19 19:15 16 07/17/19 18:45 16 07/17/19 15:17 100.4 F H 110 H 24 135/84 07/17/19 12:27 16 07/17/19 12:00 80 07/17/19 11:57 19 07/17/19 11:38 100.5 F H 92 H 16 118/71 BP Pulse Ox 07/18/19 10:00 96 07/18/19 09:53 07/18/19 09:52 07/18/19 08:32 96 07/18/19 03:56 92 07/18/19 00:00 07/17/19 23:18 96 07/17/19 22:49 07/17/19 21:00 97 07/17/19 19:25 143/84 98 07/17/19 19:15 07/17/19 18:45 07/17/19 15:17 89 07/17/19 12:27 07/17/19 12:00 07/17/19 11:57 07/17/19 11:38 99 - Physical Examination General: No Apparent Distress HEENT: Positive: PERRL Neck: Positive: trachea midline Cardiac: Positive: Reg Rate and Rhythm Lungs: Positive: Decreased Breath Sounds Neuro: Positive: Grossly Intact Extremities: Absent: edema
[2019-07-18] MEDS: HYDROmorphone 1 MG/1 ML INJ IV PRN ×2 (12:05→15:52)
[2019-07-18] MEDS: AZITHROMYCIN 500 MG in SODIUM CHLORIDE 0.9% 250ML 250 ML IV SCH (12:06)
[2019-07-18 12:12] LABS: Mean Corpuscular HGB Conc 34 % (32-34); Mean Corpuscular Volume 82 fl (84-94); Platelet Count 183 K/mm3 (140-440); Red Blood Count 2.06 M/mm3 (3.65-5.03); Red Cell Distribution Width 19.3 % (13.2-15.2)
[2019-07-18 12:24] LABS: Hematocrit 16.9 % (35.5-45.6); Hemoglobin 5.8 gm/dl (11.8-15.2)
[2019-07-18] MEDS ORDERED: SODIUM CHLORIDE 0.9% 500 ML 500 ML IV NR (12:28)
[2019-07-18 12:38] LABS: Bilirubin,Direct 0.5 mg/dL (0-0.2)
--- NOTE | 2019-07-18 16:45 | Progress Note ---
Assessment and Plan /Sepsis due to bilateral pneumonia Cont On Sepsis protocol: IV antibiotic therapy, IV fluid resuscitation therapy, negative blood cx, /Severe anemia - due to Sickle cell trait with coexistent alpha-thalassemia Hematology consulted, IV fluid resuscitation therapy, supportive care. Hb 5.8 today , ordered transfusion - hematology following /Community-acquired Pneumonia Empiric antibiotics with Rocephin and Zithromax, will order repeat CXR /Severe hypokalemia, cont to replete, check Mg /Transaminitis; etiology likely multifactorial due to hemolytic process, sepsis + hepatitis C, closely monitor cont to trend, GI following /hyperammonemia - placed on lactulose /Sickle cell trait with coexistent alpha-thalassemia Hematology consulted, IV fluid resuscitation therapy, supportive care. Hb 5.7 today , refusing transfusion - will defer to hematology /Leukocytosis; Secondary to pneumonia, treat underlying cause. /Symptomatic Anemia; possible SCC ? Follow H&H, transfuse as needed, hematology following Hb 6.0 today , transfuse one unit /Hypokalemia; replenish per protocol and monitor levels /Elevated troponin Serial cardiac enzymes, EKG, cardiology consulted in ED, echocardiogram. No EKG changes. No evidence of ischemia on EKG. /Protein calorie malnutrition - consult dietary / DVT prophylaxis SCD to bilateral lower extremities while in bed, supportive care. Patient is ambulatory Disposition; follow cardiology, GI evaluation and recommendations Follow clinically, discharge home if LFT and h/h remains stable PT eval Brief History Patient is a 48 y/o male with PMH of sickle cell disease and s/p cholecystectomy who presented to ED with c/o CP, cough, and fever. He was admitted and currently being treated for sepsis 2/2 pneumonia and sickle cell pain crisis. Hospitalist Physical General appearance: Present: no acute distress, well-nourished - EENT Eyes: Present: PERRL, EOM intact - Neck Neck: Present: supple, normal ROM - Respiratory Respiratory effort: normal Respiratory: bilateral: diminished, negative: rales, rhonchi, wheezing - Cardiovascular Rhythm: regular Heart Sounds: Present: S1 & S2 - Extremities Extremities: no ischemia, No edema - Abdominal General gastrointestinal: soft, non-tender, non-distended, normal bowel sounds - Integumentary Integumentary: Present: clear, warm - Psychiatric Psychiatric: appropriate mood/affect, cooperative - Neurologic Neurologic: CNII-XII intact, moves all extremities Subjective Date of service: 07/18/19 Principal diagnosis: anemia Interval history: Patient seen and examined Hb remained 5.8 today - agreed for transfusion c/o back pain. updated patient and RN at bedside Objective - Constitutional Vitals: Vital Signs - 12hr 07/18/19 07/18/19 07/18/19 08:32 09:00 09:52 Temperature 98.1 F Pulse Rate 98 H 101 H Pulse Rate [ 101 H Apical] Pulse Rate [ 101 H Radial] Respiratory 14 19 Rate Blood Pressure 141/85 147/83 O2 Sat by Pulse 96 97 Oximetry 07/18/19 07/18/19 07/18/19 09:53 10:00 10:49 Temperature Pulse Rate 101 H 92 H 101 H Pulse Rate [ Apical] Pulse Rate [ Radial] Respiratory Rate Blood Pressure 147/83 147/83 O2 Sat by Pulse 96 99 Oximetry 07/18/19 07/18/19 07/18/19 11:40 15:40 16:00 Temperature 98.2 F 99.9 F H 100 F H Pulse Rate 94 H 105 H 107 H Pulse Rate [ Apical] Pulse Rate [ Radial] Respiratory 14 19 18 Rate Blood Pressure 131/86 135/78 126/81 O2 Sat by Pulse 98 7 L 98 Oximetry 07/18/19 16:15 Temperature 99 F Pulse Rate 106 H Pulse Rate [ Apical] Pulse Rate [ Radial] Respiratory 19 Rate Blood Pressure 116/86 O2 Sat by Pulse 98 Oximetry - Labs CBC & Chem 7: 07/19/19 05:25 07/16/19 13:40 Labs: Abnormal lab results 07/16/19 07/18/19 07/18/19 Range/Units 13:41 11:43 11:43 WBC 15.3 H (4.5-11.0) K/mm3 RBC 2.06 L (3.65-5.03) M/mm3 Hgb 5.8 L* (11.8-15.2) gm/dl Hct 16.9 L* (35.5-45.6) % MCV 82 L (84-94) fl RDW 19.3 H (13.2-15.2) % Total Bilirubin 1.30 H (0.1-1.2) mg/dL Direct Bilirubin 0.5 H (0-0.2) mg/dL AST 75 H (5-40) units/L ALT 75 H (7-56) units/L Alkaline Phosphatase 235 H (35-129) units/L Albumin 3.0 L (3.9-5) g/dL Crossmatch See Detail
[2019-07-18] MEDS ORDERED: diphenhydrAMINE 50 MG/ML VIAL IV ONE (17:15)
[2019-07-18] MEDS: IBUPROFEN 400 MG TAB PO PRN (17:22)
--- NOTE | 2019-07-18 20:44 | XRay Report ---
CHEST 1 VIEW INDICATION / CLINICAL INFORMATION: Cough with pneumonia COMPARISON: 07/11/2019 FINDINGS: SUPPORT DEVICES: None. HEART / MEDIASTINUM: No significant abnormality. LUNGS / PLEURA: Severe bilateral airspace pneumonia which has minimally improved from 07/11/2019 Signer Name: Frank Morris MD Signed: 07/18/2019 8:39 PM Workstation Name: [id number]
[2019-07-18] MEDS ORDERED: TEMAZEPAM 15 MG CAP PO ONE (23:00)
[2019-07-18] MEDS: guaiFENesin DM 200/20 MG ORAL LIQD 10 ML PO PRN (23:15)
[2019-07-19] MEDS: D5W/0.9% NACL 1,000 ML IV SCH ×3 (01:05→21:43)
[2019-07-19] MEDS: HYDROmorphone 1 MG/1 ML INJ IV PRN ×3 (05:50→22:43)
[2019-07-19] MEDS: LACTULOSE 20 GM/30 ML ORAL LIQD PO SCH ×3 (05:50→17:36)
[2019-07-19] MEDS ORDERED: diphenhydrAMINE 50 MG/ML VIAL IV ONE (06:00)
[2019-07-19 06:02] LABS: Hematocrit 28.1 % (35.5-45.6); Hemoglobin 9.7 gm/dl (11.8-15.2); Mean Corpuscular HGB Conc 34 % (32-34); Mean Corpuscular Volume 85 fl (84-94); Red Blood Count 3.29 M/mm3 (3.65-5.03); Red Cell Distribution Width 18.3 % (13.2-15.2)
[2019-07-19 06:11] LABS: Platelet Count 217 K/mm3 (140-440)
--- NOTE | 2019-07-19 06:50 | Hem/Onc Progress Note ---
Assessment and Plan 1. Anemia with radiological changes for sickle changes. The patient has hemoglobin but probably this is more than that this may be SS or other form. hemoglobin electrophoresis. 2. Pain issues, on pain medications. 3. Fever issues, on antibiotics. 4. Hydration may help the patient. 5. folic acid. 6. The patient states that his pain is sickle cell crisis. This is very infrequent, once every 5 years. Once this crisis improves, outpatient discussion regarding need or option for Hydrea can be done. 7. Elevated troponin. 8. 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 We will try to get more information for same. pt says - does not know about alpha thal pain better smear mentions hb c crystals this pt may have hbc disease - will await hb electrophoresis s/p prbc has cough as per RN - pt in isolation - cause ? - Patient Problems (1) Sickle cell pain crisis Current Visit: Yes Status: Acute Subjective Date of service: 07/19/19 Principal diagnosis: anemia Interval history: s/p prbc Objective - Exam Narrative Exam: Pain - better General appearance - awake Performance status limited self care Eyes - no icterus ENT - no bleeding LNs cervical not palpable Neck - no LN Respiratory Normal - on o2 Breath sounds - CTA anteriorly CVS S1 S2 + Extremities no edema General GI Soft Rectal deferred male - deferred Skin warm Musculoskeletal - moves arms and legs Neurologically - awake - Constitutional Vitals: Last Vital Signs Temp 98.3 F 07/19/19 04:51 Pulse 92 H 07/19/19 04:51 Resp 18 07/19/19 05:50 BP 132/92 07/19/19 04:51 Pulse Ox 96 07/19/19 04:51 - Labs Lab Results: Laboratory Results - last 24 hr 07/16/19 07/18/19 07/18/19 13:41 11:43 11:43 WBC 15.3 H RBC 2.06 L Hgb 5.8 L* Hct 16.9 L* MCV 82 L MCH 28 MCHC 34 RDW 19.3 H Plt Count 183 Total Bilirubin 1.30 H Direct Bilirubin 0.5 H Indirect Bilirubin 0.8 AST 75 H ALT 75 H Alkaline Phosphatase 235 H Total Protein 6.6 Albumin 3.0 L Albumin/Globulin Ratio 0.8 Blood Type B NEGATIVE Antibody Screen Negative Crossmatch See Detail 07/19/19 05:25 WBC 12.6 H RBC 3.29 L Hgb 9.7 L D Hct 28.1 L D MCV 85 MCH 29 MCHC 34 RDW 18.3 H Plt Count 217 Total Bilirubin Direct Bilirubin Indirect Bilirubin AST ALT Alkaline Phosphatase Total Protein Albumin Albumin/Globulin Ratio Blood Type Antibody Screen Crossmatch Medications & Allergies - Medications Allergies/Adverse Reactions: Allergies No Known Allergies Allergy (Verified 07/10/19 03:27) Home Medications: Home Medications Medication Instructions Recorded Confirmed Last Taken Type Azithromycin [Zithromax TAB] 250 mg PO QDAY 5 Days #6 tablet 07/06/19 07/11/19 Unknown Rx Benzonatate [Tessalon Perles] 100 mg PO Q8HR PRN #14 capsule 07/06/19 07/11/19 Unknown Rx Prednisone [predniSONE 10 mg 10 mg PO .TAPER #1 tab.ds.pk 07/06/19 07/11/19 Unknown Rx (6-Day Pack, 21 Tabs)] oxyCODONE /ACETAMINOPHEN [Percocet 1 tab PO Q6HR PRN #10 tablet 07/10/19 07/11/19 Unknown Rx 5/325] Active Medications: Generic Name Dose Route Start Last Admin Trade Name Freq PRN Reason Stop Dose Admin Albuterol 2.5 mg 07/11/19 14:59 07/13/19 04:18 Proventil IH 2.5 mg Q4HRT PRN Administration Shortness Of Breath Amlodipine Besylate 2.5 mg 07/15/19 12:00 07/18/19 09:52 Amlodipine PO 2.5 mg QDAY JHON Administration Cyanocobalamin 2,000 mcg 07/17/19 18:00 07/18/19 09:52 Vitamin B-12 PO 2,000 mcg QDAY JHON Administration Folic Acid 1 mg 07/12/19 10:00 07/18/19 09:53 Folvite PO 1 mg QDAY JHON Administration Guaifenesin 10 ml 07/18/19 22:15 07/18/19 23:15 Guaifenesin Dm Syrup PO 10 ml Q4H PRN Administration Cough Hydralazine HCl 5 mg 07/11/19 20:21 07/13/19 10:24 Apresoline IV 5 mg Q4HR PRN Administration Blood Pressure Hydromorphone HCl 0.5 mg 07/11/19 11:30 07/19/19 05:50 Dilaudid IV 0.5 mg Q4H PRN Administration Pain , Severe (7-10) Azithromycin 500 mg/ Sodium 250 mls @ 250 mls/hr 07/11/19 12:00 07/18/19 12:06 Chloride IV 07/20/19 12:59 250 mls/hr Q24H JHON Administration Protocol Ceftriaxone Sodium 2 gm in 100 mls @ 200 mls/hr 07/11/19 12:00 07/18/19 09:52 Rocephin/Ns 2 Gm/100 Ml IV 07/20/19 10:29 200 mls/hr Q24HR JHON Administration Protocol Dextrose/Sodium Chloride 1,000 mls @ 125 mls/hr 07/13/19 17:00 07/19/19 01:05 D5ns IV 125 mls/hr DIRECT JHON Administration Ibuprofen 400 mg 07/13/19 17:30 07/18/19 17:22 Ibuprofen PO 400 mg Q6H PRN Administration Fever >101 Lactulose 20 gm 07/14/19 18:00 07/19/19 05:50 Cephulac PO 20 gm Q6HR JHON Administration Metoprolol Tartrate 25 mg 07/15/19 22:00 07/18/19 21:17 Metoprolol PO 25 mg BID JHON Administration Ondansetron HCl 4 mg 07/11/19 14:59 Zofran IV Q8H PRN Nausea And Vomiting Pantoprazole Sodium 40 mg 07/18/19 10:00 07/18/19 09:53 Protonix PO 40 mg DAILY JHON Administration Sodium Chloride 10 ml 07/11/19 22:00 07/18/19 21:21 Sodium Chloride Flush Syringe 10 Ml IV 10 ml BID JHON Administration Sodium Chloride 10 ml 07/11/19 14:59 07/17/19 00:06 Sodium Chloride Flush Syringe 10 Ml IV 10 ml PRN PRN Administration LINE FLUSH
[2019-07-19] MEDS: FOLIC ACID 1 MG TAB PO SCH (10:10)
[2019-07-19] MEDS: PANTOPRAZOLE 40 MG TAB PO SCH (10:10)
[2019-07-19] MEDS: METOPROLOL TARTRATE 25 MG TAB PO SCH ×2 (10:10→21:44)
[2019-07-19] MEDS: amLODIPine 5 MG TAB PO SCH (10:11)
[2019-07-19] MEDS: cefTRIAXone/NS 2 GM/100 ML 2 GM/100 ML BAG IV SCH (10:11)
[2019-07-19] MEDS: CYANOCOBALAMIN (VIT B-12) 1000 MCG TAB PO SCH (10:11)
--- NOTE | 2019-07-19 11:28 | Progress Note ---
Assessment and Plan Chest pain Elevated troponin in the setting of multiple laboratory abnormalities normal sinus rhythm, normal ECG. Acute Pneumonia Elevated bilirubin Elevated liver transaminases + hepatitis C Ab Severe Anemia s/p transfusion of PRBCs Thrombocytopenia History of sickle cell trait and thalassemia Essential primary hypertension with a BP 170/110 on admission An echocardiogram reports a normal LV systolic function, EF 55-60%. Conservative cardiac management. Subjective Date of service: 07/19/19 Principal diagnosis: anemia Interval history: Patient denies chest pain and shortness of breath. Objective Vital Signs Temp Pulse Pulse Resp BP Pulse Ox 07/19/19 09:30 100.1 F H 18 143/96 07/19/19 06:20 18 07/19/19 05:50 18 07/19/19 04:51 98.3 F 92 H 18 132/92 96 07/19/19 00:18 97.9 F 65 18 130/84 100 07/18/19 23:50 97.9 F 68 18 123/85 99 07/18/19 23:20 97.8 F 63 18 123/85 99 07/18/19 22:50 97.9 F 69 18 128/84 99 07/18/19 22:20 98.8 F 85 18 122/83 97 07/18/19 22:15 98 07/18/19 22:05 97.3 F L 87 18 133/87 100 07/18/19 21:22 98.5 F 89 18 129/90 99 07/18/19 21:17 106 H 133/87 07/18/19 21:15 98.5 F 89 18 129/90 99 07/18/19 21:00 106 H 19 95 07/18/19 20:45 98.2 F 96 H 18 136/85 98 07/18/19 20:15 98.5 F 101 H 18 110/68 97 07/18/19 19:45 98.5 F 101 H 18 136/85 97 07/18/19 19:15 98.7 F 105 H 18 143/90 96 07/18/19 19:10 102 H 07/18/19 19:00 98.7 F 100 H 19 133/87 95 07/18/19 18:00 11.1 F L 110 H 19 135/84 96 07/18/19 17:30 99.2 F 107 H 19 144/85 98 07/18/19 17:00 102.6 F H 102 H 19 144/88 98 07/18/19 16:45 99 F 103 H 19 146/84 97 07/18/19 16:30 99 F 102 H 19 129/84 99 07/18/19 16:15 99 F 106 H 19 116/86 98 07/18/19 16:00 100 F H 107 H 18 126/81 98 07/18/19 15:40 99.9 F H 105 H 19 135/78 7 L 07/18/19 12:00 91 H 07/18/19 11:40 98.2 F 94 H 14 131/86 98 - Physical Examination General: No Apparent Distress HEENT: Positive: PERRL Neck: Positive: trachea midline Cardiac: Positive: Reg Rate and Rhythm Lungs: Positive: Decreased Breath Sounds Neuro: Positive: Grossly Intact Extremities: Absent: edema - Labs and Meds Cardiac Enzymes 07/18/19 Range/Units 11:43 AST 75 H (5-40) units/L CBC 07/18/19 07/19/19 Range/Units 11:43 05:25 WBC 15.3 H 12.6 H (4.5-11.0) K/mm3 RBC 2.06 L 3.29 L (3.65-5.03) M/mm3 Hgb 5.8 L* 9.7 L D (11.8-15.2) gm/dl Hct 16.9 L* 28.1 L D (35.5-45.6) % Plt Count 183 217 (140-440) K/mm3 Comprehensive Metabolic Panel 07/18/19 Range/Units 11:43 Direct Bilirubin 0.5 H (0-0.2) mg/dL Indirect Bilirubin 0.8 mg/dL AST 75 H (5-40) units/L ALT 75 H (7-56) units/L Alkaline Phosphatase 235 H (35-129) units/L Total Protein 6.6 (6.3-8.2) g/dL Albumin 3.0 L (3.9-5) g/dL
[2019-07-19] MEDS: AZITHROMYCIN 500 MG in SODIUM CHLORIDE 0.9% 250ML 250 ML IV SCH (12:00)
--- NOTE | 2019-07-19 13:30 | Progress Note ---
Assessment and Plan /Sepsis due to bilateral pneumonia Cont On Sepsis protocol: IV antibiotic therapy, IV fluid resuscitation therapy, negative blood cx, will treat for total 10 days /Severe anemia - due to Sickle cell trait with coexistent alpha-thalassemia Hematology consulted, IV fluid resuscitation therapy, supportive care. Hb dropped to 5.8, s/p 3 units PRBC transfusion /Community-acquired Pneumonia Empiric antibiotics with Rocephin and Zithromax, Repeat CXR showed persistent consolidation - ID consulted for further abx recommendation /Transaminitis; etiology likely multifactorial due to hemolytic process, sepsis + hepatitis C, closely monitor cont to trend, GI following /hyperammonemia - placed on lactulose /Sickle cell trait with coexistent alpha-thalassemia Hematology consulted, IV fluid resuscitation therapy, supportive care. transfuse as needed /Leukocytosis; Secondary to pneumonia, treat underlying cause. /Hypokalemia; replenish per protocol and monitor levels /Elevated troponin Serial cardiac enzymes, EKG, cardiology consulted in ED, echocardiogram. No EKG changes. No evidence of ischemia on EKG. /mild Protein calorie malnutrition - consulted dietary / DVT prophylaxis SCD to bilateral lower extremities while in bed, supportive care. Patient is ambulatory Disposition; Follow clinically, discharge home tomorrow if LFT and h/h remains stable PT eval Brief History Patient is a 48 y/o male with PMH of sickle cell disease and s/p cholecystectomy who presented to ED with c/o CP, cough, and fever. He was admitted and currently being treated for sepsis 2/2 pneumonia and sickle cell pain crisis. Hospitalist Physical General appearance: Present: no acute distress, well-nourished - EENT Eyes: Present: PERRL, EOM intact - Neck Neck: Present: supple, normal ROM - Respiratory Respiratory effort: normal Respiratory: bilateral: diminished, negative: rales, rhonchi, wheezing - Cardiovascular Rhythm: regular Heart Sounds: Present: S1 & S2 - Extremities Extremities: no ischemia, No edema - Abdominal General gastrointestinal: soft, non-tender, non-distended, normal bowel sounds - Integumentary Integumentary: Present: clear, warm - Psychiatric Psychiatric: appropriate mood/affect, cooperative - Neurologic Neurologic: CNII-XII intact, moves all extremities Subjective Date of service: 07/19/19 Principal diagnosis: anemia Interval history: Patient seen and examined Hb improved following transfusion updated patient and RN at bedside patient was upset as he was on isolation for influenza test - explained that that was placed per hospital protocol and will be taken off when test result comes negative Objective - Constitutional Vitals: Vital Signs - 12hr 07/19/19 07/19/19 07/19/19 04:51 05:50 06:20 Temperature 98.3 F Pulse Rate 92 H Respiratory 18 18 18 Rate Blood Pressure 132/92 O2 Sat by Pulse 96 Oximetry 07/19/19 09:30 Temperature 100.1 F H Pulse Rate Respiratory 18 Rate Blood Pressure 143/96 O2 Sat by Pulse Oximetry - Labs CBC & Chem 7: 07/20/19 05:47 07/20/19 05:47 Labs: Abnormal lab results 07/16/19 07/19/19 Range/Units 13:41 05:25 WBC 12.6 H (4.5-11.0) K/mm3 RBC 3.29 L (3.65-5.03) M/mm3 Hgb 9.7 L D (11.8-15.2) gm/dl Hct 28.1 L D (35.5-45.6) % RDW 18.3 H (13.2-15.2) % Crossmatch See Detail
[2019-07-19 14:44] LABS: BUN/Creatinine Ratio 13; Blood Urea Nitrogen 8 mg/dL (9-20); Hemolysis Index 15
--- NOTE | 2019-07-19 16:16 | Consultation ---
History of Present Illness - Reason for Consult Consult date: 07/19/19 - History of Present Illness 48 yo M PMHx sickle cell disease admitted to the hospital with pneumonia. He complained of a non-productive cough which began approximately 2 days prior to admission. He had been seen the same day in the ER prior to admission and dischrged home, however he still did not feel well so he returned for admission. He also complains of chest discomfort secondary to the cough. He notes associated weakness as well. He denied any fevers, sweats, chills. On admission was found to have a bilateral pneumonia. Denies any sick contacts, or recent international/interstate travel. He notes treatment of his hepatitis C several years ago with ribavirin and interferon, and that the interferon discoloured his skin. Febrile to 102.6 during the admission with a white count of 13. Currently receiving ceftriaxone and azithromycin. Blood, urine, and sputum cultures are all negative. Imaging personally reviewed: Most recent CXR: improving severe bilateral pneumonia. Review of Systems: Bold if positive, otherwise negative General: fevers, chills, rigors HEENT: visual disturbance, diplopia, eye pain Respiratory: cough, sputum, hemoptysis, shortness of breath Cardiovascular: chest pain, syncope Gastrointestinal: nausea, vomiting, diarrhea, abdominal pain Genitourinary: dysuria, hematuria, flank pain Musculoskeletal: neck pain, back pain, joint pain, edema Neurologic: headaches, seizures Hematologic: easy bruising or bleeding Endocrine: night sweats, acute weight loss Skin: rash, jaundice, redness Psychiatric: suicidal, homicidal ideation Past History Past Medical History: other (see HPI) Past Surgical History: cholecystectomy Social history: , lives with family. denies: smoking, alcohol abuse Family history: hypertension, other (Sickle cell disease) Medications and Allergies Allergies Allergy/AdvReac Type Severity Reaction Status Date / Time No Known Allergies Allergy Verified 07/10/19 03:27 Home Medications Medication Instructions Recorded Confirmed Last Taken Type Azithromycin [Zithromax TAB] 250 mg PO QDAY 5 Days #6 tablet 07/06/19 07/11/19 Unknown Rx Benzonatate [Tessalon Perles] 100 mg PO Q8HR PRN #14 capsule 07/06/19 07/11/19 Unknown Rx Prednisone [predniSONE 10 mg 10 mg PO .TAPER #1 tab.ds.pk 07/06/19 07/11/19 Unknown Rx (6-Day Pack, 21 Tabs)] oxyCODONE /ACETAMINOPHEN [Percocet 1 tab PO Q6HR PRN #10 tablet 07/10/19 07/11/19 Unknown Rx 5/325] Active Meds: Active Medications Albuterol (Proventil) 2.5 mg IH Q4HRT PRN PRN Reason: Shortness Of Breath Last Admin: 07/13/19 04:18 Dose: 2.5 mg Documented by: Amlodipine Besylate (Amlodipine) 2.5 mg PO QDAY JHON Last Admin: 07/19/19 10:11 Dose: 2.5 mg Documented by: Cyanocobalamin (Vitamin B-12) 2,000 mcg PO QDAY JHON Last Admin: 07/19/19 10:11 Dose: 2,000 mcg Documented by: Folic Acid (Folvite) 1 mg PO QDAY JHON Last Admin: 07/19/19 10:10 Dose: 1 mg Documented by: Guaifenesin (Guaifenesin Dm Syrup) 10 ml PO Q4H PRN PRN Reason: Cough Last Admin: 07/18/19 23:15 Dose: 10 ml Documented by: Hydralazine HCl (Apresoline) 5 mg IV Q4HR PRN PRN Reason: Blood Pressure Last Admin: 07/13/19 10:24 Dose: 5 mg Documented by: Hydromorphone HCl (Dilaudid) 0.5 mg IV Q4H PRN PRN Reason: Pain , Severe (7-10) Last Admin: 07/19/19 10:11 Dose: 0.5 mg Documented by: Azithromycin 500 mg/ Sodium (Chloride) 250 mls @ 250 mls/hr IV Q24H JHON; Protocol Stop: 07/20/19 12:59 Last Admin: 07/19/19 12:00 Dose: 250 mls/hr Documented by: Ceftriaxone Sodium (Rocephin/Ns 2 Gm/100 Ml) 2 gm in 100 mls @ 200 mls/hr IV Q24HR JHON; Protocol Stop: 07/20/19 10:29 Last Admin: 07/19/19 10:11 Dose: 200 mls/hr Documented by: Dextrose/Sodium Chloride (D5ns) 1,000 mls @ 125 mls/hr IV DIRECT JHON Last Admin: 07/19/19 10:17 Dose: 125 mls/hr Documented by: Ibuprofen (Ibuprofen) 400 mg PO Q6H PRN PRN Reason: Fever >101 Last Admin: 07/18/19 17:22 Dose: 400 mg Documented by: Lactulose (Cephulac) 20 gm PO Q6HR [facility] Last Admin: 07/19/19 14:10 Dose: 20 gm Documented by: Metoprolol Tartrate (Metoprolol) 25 mg PO BID [facility] Last Admin: 07/19/19 10:10 Dose: 25 mg Documented by: Ondansetron HCl (Zofran) 4 mg IV Q8H PRN PRN Reason: Nausea And Vomiting Pantoprazole Sodium (Protonix) 40 mg PO DAILY [facility] Last Admin: 07/19/19 10:10 Dose: 40 mg Documented by: Sodium Chloride (Sodium Chloride Flush Syringe 10 Ml) 10 ml IV BID [facility] Last Admin: 07/19/19 10:12 Dose: 10 ml Documented by: Sodium Chloride (Sodium Chloride Flush Syringe 10 Ml) 10 ml IV PRN PRN PRN Reason: LINE FLUSH Last Admin: 07/17/19 00:06 Dose: 10 ml Documented by: Physical Examination - Physical Exam Narrative exam: Physical Exam: Constitutional: Alert, cooperative. No acute distress Head, Ears, Nose: Normocephalic, atraumatic. External ears, nose normal Eyes: Conjunctivae/corneas clear. No icterus. No ptosis. Neck: Supple, no meningeal signs Oral: dentition fair, no thrush Cardiovascular: S1, S2 normal. Respiratory: B/L crackles. GI: Soft, non-tender; bowel sounds normal. No peritoneal signs. Musculoskeletal: No pedal edema, no cyanosis. Skin: No rash or abscess Hem/Lymphatic: No palpable cervical or supraclavicular nodes. No lymphangitis Psych: Mood ok. Affect normal Neurological: Awake, alert, oriented. No gross abnormality - Constitutional Vitals: Vital Signs Temp Pulse Resp BP Pulse Ox 100.1 F H 102 H 18 143/96 97 07/19/19 09:30 07/19/19 10:00 07/19/19 10:00 07/19/19 09:30 07/19/19 10:00 Temperature -Last 24 Hours Temperature 100.1 F Temperature 98.3 F Temperature 97.9 F Temperature 97.9 F Temperature 97.8 F Temperature 97.9 F Temperature 97.9 F Temperature 98.8 F Temperature 97.3 F Temperature 98.5 F Temperature 98.5 F Temperature 98.2 F Temperature 98.5 F Temperature 98.5 F Temperature 98.7 F Temperature 98.7 F Temperature 98.7 F Temperature 11.1 F Temperature 99.2 F Temperature 102.6 F Temperature 99 F Temperature 99 F Temperature 99 F Results - Labs CBC & Chem 7: 07/19/19 05:25 07/19/19 13:55 Labs: Abnormal lab results 07/16/19 07/19/19 07/19/19 Range/Units 13:41 05:25 13:55 WBC 12.6 H (4.5-11.0) K/mm3 RBC 3.29 L (3.65-5.03) M/mm3 Hgb 9.7 L D (11.8-15.2) gm/dl Hct 28.1 L D (35.5-45.6) % RDW 18.3 H (13.2-15.2) % Potassium 2.8 L* (3.6-5.0) mmol/L Chloride 113.1 H (98-107) mmol/L Carbon Dioxide 16 L (22-30) mmol/L BUN 8 L (9-20) mg/dL Creatinine 0.6 L (0.8-1.5) mg/dL Calcium 6.0 L D (8.4-10.2) mg/dL Magnesium 1.10 L (1.7-2.3) mg/dL Crossmatch See Detail Assessment and Plan Cultures: 07/11/2019 urine cultures: negative 07/11/2019 blood cultures: negative 07/11/2019 sputum cultures: negative A&P: 48 yo M PMHx sickle cell disease, hepatitis C admitted with bilateral pneumonia #Acute sepsis: present with fevers and leukocytosis. Secondary to bilateral pneumonia #Bilateral pneumonia: Appears to be improving on CXR. Pneumonia and acute chest syndrome clinically indistinguishable and treated the same. Has completed 9 days of empiric azithromycin and ceftriaxone. Has stop date for tomorrow. 10 days is likely sufficient. Has persistent fevers, howeve can be secondary to pain crisis experienced by the patient. Ordered procalcitonin for the AM. #Sickle cell disease: ok for hydroxurea if required by hematology. #Hepatitis C: positive antibody. PCR already ordered. Had previous treatment with ribavirin/pegylated interferon. PCR should be negative. Recommendations: - continue azithromycin and ceftriaxone. Stop tomorrow - ordered procalcitonin for AM - follow up hepatitis C PCR - recommend outpatient treatment of hepatitis C if positive viral load. Thank you for the consult, will follow. Paris Lake MD [facility], [place], [facility] ([facility]) M: [phone] O: [phone] F: [phone]
[2019-07-19] MEDS: IBUPROFEN 400 MG TAB PO PRN (19:58)
[2019-07-19 20:52] LABS: BUN/Creatinine Ratio 14; Blood Urea Nitrogen 11 mg/dL (9-20); Calcium 8.7 mg/dL (8.4-10.2); Hemolysis Index 4
[2019-07-19] MEDS: guaiFENesin DM 200/20 MG ORAL LIQD 10 ML PO PRN (22:43)
[2019-07-20] MEDS: LACTULOSE 20 GM/30 ML ORAL LIQD PO SCH ×3 (00:52→12:10)
[2019-07-20] MEDS ORDERED: TEMAZEPAM 15 MG CAP PO PRN (01:04)
[2019-07-20] MEDS: D5W/0.9% NACL 1,000 ML IV SCH (05:15)
[2019-07-20 06:16] LABS: Hematocrit 26.3 % (35.5-45.6); Hemoglobin 8.9 gm/dl (11.8-15.2); Mean Corpuscular HGB Conc 34 % (32-34); Mean Corpuscular Volume 84 fl (84-94); Platelet Count 256 K/mm3 (140-440); Red Blood Count 3.12 M/mm3 (3.65-5.03); Red Cell Distribution Width 18.4 % (13.2-15.2)
[2019-07-20 06:47] LABS: Alanine Aminotransferase 57 units/L (7-56); Albumin 3.1 g/dL (3.9-5); BUN/Creatinine Ratio 16; Blood Urea Nitrogen 8 mg/dL (9-20); Calcium 8.9 mg/dL (8.4-10.2); Hemolysis Index 4
--- NOTE | 2019-07-20 07:39 | Hem/Onc Progress Note ---
Assessment and Plan 1. Anemia with radiological changes for sickle changes. The patient has hemoglobin but probably this is more than that this may be SS or other form. hemoglobin electrophoresis. 2. Pain issues, on pain medications. 3. Fever issues, on antibiotics. 4. Hydration may help the patient. 5. folic acid. 6. The patient states that his pain is sickle cell crisis. This is very infrequent, once every 5 years. Once this crisis improves, outpatient discussion regarding need or option for Hydrea can be done. 7. Elevated troponin. 8. 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 We will try to get more information for same. pt says - does not know about alpha thal pain better smear mentions hb c crystals this pt may have hbc disease - will await hb electrophoresis s/p prbc has cough isolation removed - Patient Problems (1) Sickle cell pain crisis Current Visit: Yes Status: Acute Subjective Date of service: 07/20/19 Principal diagnosis: anemia Interval history: feeling better Objective - Exam Narrative Exam: Pain - better General appearance - awake Performance status limited self care Eyes - no icterus ENT - no bleeding LNs cervical not palpable Neck - no LN Respiratory Normal - on o2 Breath sounds - CTA anteriorly CVS S1 S2 + Extremities no edema General GI Soft Rectal deferred male - deferred Skin warm Musculoskeletal - moves arms and legs Neurologically - awake - Constitutional Vitals: Last Vital Signs Temp 97.9 F 07/20/19 04:07 Pulse 89 07/20/19 04:07 Resp 18 07/20/19 04:07 BP 125/90 07/20/19 04:07 Pulse Ox 93 07/20/19 04:07 - Labs Lab Results: Laboratory Results - last 24 hr 07/17/19 07/19/19 07/19/19 07:51 13:55 15:44 WBC RBC Hgb Hct MCV MCH MCHC RDW Plt Count Haptoglobin 9 L Sodium 141 Potassium 2.8 L* Chloride 113.1 H Carbon Dioxide 16 L Anion Gap 15 BUN 8 L Creatinine 0.6 L Estimated GFR > 60 BUN/Creatinine Ratio 13 Glucose TNR POC Glucose 118 H Calcium 6.0 L D Magnesium 1.10 L Total Bilirubin AST ALT Alkaline Phosphatase Total Protein Albumin Albumin/Globulin Ratio Influenza A (Rapid) Influenza B (Rapid) 07/19/19 07/19/19 07/20/19 19:44 Unknown 05:47 WBC 13.0 H RBC 3.12 L Hgb 8.9 L Hct 26.3 L MCV 84 MCH 29 MCHC 34 RDW 18.4 H Plt Count 256 Haptoglobin Sodium 138 Potassium 3.8 D Chloride 101.7 Carbon Dioxide 22 Anion Gap 18 BUN 11 Creatinine 0.8 Estimated GFR > 60 BUN/Creatinine Ratio 14 Glucose 116 H POC Glucose Calcium 8.7 D Magnesium Total Bilirubin AST ALT Alkaline Phosphatase Total Protein Albumin Albumin/Globulin Ratio Influenza A (Rapid) Negative Influenza B (Rapid) Negative 07/20/19 05:47 WBC RBC Hgb Hct MCV MCH MCHC RDW Plt Count Haptoglobin Sodium 141 Potassium 3.7 Chloride 103.6 Carbon Dioxide 22 Anion Gap 19 BUN 8 L Creatinine 0.5 L Estimated GFR > 60 BUN/Creatinine Ratio 16 Glucose 104 H POC Glucose Calcium 8.9 Magnesium Total Bilirubin 1.40 H AST 51 H ALT 57 H Alkaline Phosphatase 224 H Total Protein 6.9 Albumin 3.1 L Albumin/Globulin Ratio 0.8 Influenza A (Rapid) Influenza B (Rapid) Medications & Allergies - Medications Allergies/Adverse Reactions: Allergies No Known Allergies Allergy (Verified 07/10/19 03:27) Home Medications: Home Medications Medication Instructions Recorded Confirmed Last Taken Type Azithromycin [Zithromax TAB] 250 mg PO QDAY 5 Days #6 tablet 07/06/19 07/11/19 Unknown Rx Benzonatate [Tessalon Perles] 100 mg PO Q8HR PRN #14 capsule 07/06/19 07/11/19 Unknown Rx Prednisone [predniSONE 10 mg 10 mg PO .TAPER #1 tab.ds.pk 07/06/19 07/11/19 Unknown Rx (6-Day Pack, 21 Tabs)] oxyCODONE /ACETAMINOPHEN [Percocet 1 tab PO Q6HR PRN #10 tablet 07/10/19 07/11/19 Unknown Rx 5/325] Active Medications: Generic Name Dose Route Start Last Admin Trade Name Freq PRN Reason Stop Dose Admin Albuterol 2.5 mg 07/11/19 14:59 07/13/19 04:18 Proventil IH 2.5 mg Q4HRT PRN Administration Shortness Of Breath Amlodipine Besylate 2.5 mg 07/15/19 12:00 07/19/19 10:11 Amlodipine PO 2.5 mg QDAY JHON Administration Cyanocobalamin 2,000 mcg 02/10/20 18:00 07/19/19 10:11 Vitamin B-12 PO 2,000 mcg QDAY JHON Administration Folic Acid 1 mg 07/12/19 10:00 07/19/19 10:10 Folvite PO 1 mg QDAY JHON Administration Guaifenesin 10 ml 07/18/19 22:15 07/19/19 22:43 Guaifenesin Dm Syrup PO 10 ml Q4H PRN Administration Cough Hydralazine HCl 5 mg 07/11/19 20:21 07/13/19 10:24 Apresoline IV 5 mg Q4HR PRN Administration Blood Pressure Hydromorphone HCl 0.5 mg 07/11/19 11:30 07/19/19 22:43 Dilaudid IV 0.5 mg Q4H PRN Administration Pain , Severe (7-10) Azithromycin 500 mg/ Sodium 250 mls @ 250 mls/hr 07/11/19 12:00 07/19/19 12:00 Chloride IV 07/20/19 12:59 250 mls/hr Q24H JHON Administration Protocol Ceftriaxone Sodium 2 gm in 100 mls @ 200 mls/hr 07/11/19 12:00 07/19/19 10:11 Rocephin/Ns 2 Gm/100 Ml IV 07/20/19 10:29 200 mls/hr Q24HR JHON Administration Protocol Dextrose/Sodium Chloride 1,000 mls @ 125 mls/hr 07/13/19 17:00 07/20/19 05:15 D5ns IV 125 mls/hr DIRECT JHON Administration Ibuprofen 400 mg 07/13/19 17:30 07/19/19 19:58 Ibuprofen PO 400 mg Q6H PRN Administration Fever >101 Lactulose 20 gm 07/14/19 18:00 07/20/19 05:14 Cephulac PO 20 gm Q6HR JHON Administration Metoprolol Tartrate 25 mg 07/15/19 22:00 07/19/19 21:44 Metoprolol PO 25 mg BID JHON Administration Ondansetron HCl 4 mg 07/11/19 14:59 Zofran IV Q8H PRN Nausea And Vomiting Pantoprazole Sodium 40 mg 07/18/19 10:00 07/19/19 10:10 Protonix PO 40 mg DAILY JHON Administration Sodium Chloride 10 ml 07/11/19 22:00 07/19/19 21:45 Sodium Chloride Flush Syringe 10 Ml IV 10 ml BID JHON Administration Sodium Chloride 10 ml 07/11/19 14:59 07/17/19 00:06 Sodium Chloride Flush Syringe 10 Ml IV 10 ml PRN PRN Administration LINE FLUSH Temazepam 15 mg 07/20/19 01:04 07/20/19 01:22 Restoril PO 15 mg QHS PRN Administration Sleep
[2019-07-20 08:30] LABS: HIV-1 Antibody Differentiation SEE SCANNED RESULT; HIV-2 Antibody Differentiation SEE SCANNED RESULT
--- NOTE | 2019-07-20 09:07 | Discharge Summary ---
Providers - Providers Date of Admission: 07/11/19 14:59 Date of discharge: 07/20/19 Attending physician: HELEN NIX 07/11/19 Consult to Cardiac Rehabilitation [CONS] Routine Reason For Exam: Phase I 07/11/19 20:43 Consult to Physician [CONS] Routine Comment: Consulting Provider: JORGE LUIS ZELAYA Physician Instructions: Reason For Exam: sickle cell 07/11/19 21:07 Consult to Cardiology [CONS] Routine Consulting Provider: KAY JAIN Reason For Exam: angina 07/12/19 20:31 Consult to Physician [CONS] Routine Comment: Consulting Provider: ERIKA RIVER Physician Instructions: Reason For Exam: transaminitis/anemia 07/16/19 10:46 Consult to Physician [CONS] Routine Comment: Consulting Provider: ESTIVEN CHAUHAN Physician Instructions: Reason For Exam: possible GI bleed 07/19/19 13:23 Consult to Physician [CONS] Routine Comment: Consulting Provider: PRISCILLA GRACIA Physician Instructions: Reason For Exam: persistent PNA 07/20/19 08:41 Physical Therapy Evaluation and Treat [CONS] Routine Comment: Reason For Exam: placement Primary care physician: [employer] Hospitalization Condition: Stable Pertinent studies: CXR Chest CT abdomen US Hospital course: Patient is a 48 y/o male with PMH of sickle cell disease and s/p cholecystectomy who presented to ED with c/o CP, cough, and fever. He was admitted and currently being treated for sepsis 2/2 pneumonia and sickle cell pain crisis. Discharge diagnosis and Mx /Sepsis due to bilateral pneumonia Placed On Sepsis protocol: IV antibiotic therapy, IV fluid resuscitation therapy, negative blood cx and sputum cx, treated for total 10 days with abx /Severe anemia - due to Sickle cell trait with coexistent alpha-thalassemia Hematology consulted, given IV fluid resuscitation therapy, supportive care. Hb dropped to 5.8, s/p 3 units PRBC transfusion /Community-acquired Pneumonia treated with Empiric antibiotics with Rocephin and Zithromax, Repeat CXR showed persistent consolidation - ID consulted for further abx recommendation Influenza test was negative, ID recommended total 10 days treatment /Transaminitis; etiology likely multifactorial due to hemolytic process, sepsis + hepatitis C, trended down, will do further outpt f/u /hyperammonemia - placed on lactulose /Sickle cell trait with coexistent alpha-thalassemia Hematology consulted, IV fluid resuscitation therapy, supportive care. transfuse as needed /Leukocytosis; Secondary to pneumonia, treat underlying cause. /Hypokalemia; replenished per protocol and monitor levels /Hypomagnesemia, repleted /Elevated troponin Serial cardiac enzymes, EKG, cardiology consulted in ED, echocardiogram. No EKG changes. No evidence of ischemia on EKG. /mild Protein calorie malnutrition - consulted dietary / DVT prophylaxis SCD to bilateral lower extremities while in bed, supportive care. Patient is ambulatory Disposition; d/c home Hospitalist Physical General appearance: Present: no acute distress, well-nourished - EENT Eyes: Present: PERRL, EOM intact - Neck Neck: Present: supple, normal ROM - Respiratory Respiratory effort: normal Respiratory: bilateral: diminished, negative: rales, rhonchi, wheezing - Cardiovascular Rhythm: regular Heart Sounds: Present: S1 & S2 - Extremities Extremities: no ischemia, No edema - Abdominal General gastrointestinal: soft, non-tender, non-distended, normal bowel sounds - Integumentary Integumentary: Present: clear, warm - Psychiatric Psychiatric: appropriate mood/affect, cooperative - Neurologic Neurologic: CNII-XII intact, moves all extremities Disposition: DC-01 TO HOME OR SELFCARE Time spent for discharge: 34 minutes Core Measure Documentation - Palliative Care Palliative Care/ Comfort Measures: Not Applicable - Core Measures Any of the following diagnoses?: none Exam - Constitutional Vitals: Temp Pulse Resp BP Pulse Ox 99.3 F 102 H 18 151/91 91 07/20/19 07:57 07/20/19 07:57 07/20/19 07:57 07/20/19 07:57 07/20/19 07:57 Plan Activity: advance as tolerated Weight Bearing Status: Weight Bear as Tolerated Diet: low fat Follow up with: JORGE LUIS ZELAYA MD [Staff Physician] - 7 Days PRIMARY CAREMD [Primary Care Provider] - 3-5 Days SHERRIE BEARDEN MD [Staff Physician] - 7 Days Forms: Work/School Release Form Prescriptions: Mirtazapine [Remeron 15mg TAB] 15 mg PO QHS #10 tablet Folic Acid [Folvite] 1 mg PO QDAY #30 tablet Metoprolol [Lopressor TAB] 25 mg PO BID #60 tablet guaiFENesin ER [Mucinex ER] 600 mg PO Q12H #14 tablet.er Albuterol INH(or & Nicu Only) [ProAir HFA Inhaler] 2 puff IH QID PRN #8.5 gram PRN Reason: Shortness Of Breath oxyCODONE [roxiCODONE] 5 mg PO Q6HR PRN #10 tablet PRN Reason: Pain Cyanocobalamin [Vitamin B-12] 2,000 mcg PO QDAY #30 tablet
[2019-07-20 09:16] LABS: Band Neutrophils # (Manual) 0.7 K/mm3; Basophils % (Manual) 0 % (0.0-1.8); Myelocytes # (Manual) 0.3 K/mm3; Total Cells Counted 100
[2019-07-20 09:22] LABS: Anisocytosis 1+; Giant Platelets Rare; Platelet Estimate Consistent w Auto; Poikilocytosis Few; Target Cells 2+
[2019-07-20] MEDS ORDERED: MAGNESIUM SULFATE 2 GM/50 ML BAG IV SCH (09:30)
[2019-07-20] MEDS: PANTOPRAZOLE 40 MG TAB PO SCH (09:52)
[2019-07-20] MEDS: CYANOCOBALAMIN (VIT B-12) 1000 MCG TAB PO SCH (09:52)
[2019-07-20] MEDS: FOLIC ACID 1 MG TAB PO SCH (09:52)
[2019-07-20] MEDS: amLODIPine 5 MG TAB PO SCH (09:52)
[2019-07-20] MEDS: cefTRIAXone/NS 2 GM/100 ML 2 GM/100 ML BAG IV SCH (09:53)
[2019-07-20] MEDS: METOPROLOL TARTRATE 25 MG TAB PO SCH (09:53)
[2019-07-20 09:55] VITALS: BP 140/87
--- NOTE | 2019-07-20 10:45 | Progress Note ---
Assessment and Plan Chest pain Elevated troponin in the setting of multiple laboratory abnormalities normal sinus rhythm, normal ECG. Acute Pneumonia Elevated bilirubin Elevated liver transaminases + hepatitis C Ab Severe Anemia s/p transfusion of PRBCs Thrombocytopenia History of sickle cell trait and thalassemia Essential primary hypertension with a BP 170/110 on admission An echocardiogram reports a normal LV systolic function, EF 55-60%. Conservative cardiac management. Outpatient ischemic work-up once acute medical issues resolve. Follow up with [facility] as scheduled. Subjective Date of service: 07/20/19 Principal diagnosis: anemia Interval history: Patient denies chest pain and shortness of breath. Objective Vital Signs Temp Pulse Pulse Resp Resp BP Pulse Ox 07/20/19 09:53 100 H 140/87 07/20/19 09:52 100 H 140/87 07/20/19 07:57 99.3 F 102 H 18 151/91 91 07/20/19 04:07 97.9 F 89 18 125/90 93 07/20/19 00:30 98.3 F 80 18 124/77 96 07/19/19 23:13 18 07/19/19 22:46 18 07/19/19 22:43 18 07/19/19 22:35 110 H 19 94 07/19/19 21:44 111 H 138/87 07/19/19 20:50 110 H 07/19/19 19:58 18 07/19/19 19:51 102.0 F H 111 H 24 138/87 94 07/19/19 16:36 100.7 F H 18 140/94 - Physical Examination General: No Apparent Distress HEENT: Positive: PERRL Neck: Positive: trachea midline Cardiac: Positive: Reg Rate and Rhythm Lungs: Positive: Decreased Breath Sounds Neuro: Positive: Grossly Intact Extremities: Absent: edema - Labs and Meds Cardiac Enzymes 07/20/19 Range/Units 05:47 AST 51 H (5-40) units/L CBC 07/20/19 Range/Units 05:47 WBC 11.1 H (4.5-11.0) K/mm3 RBC 3.12 L (3.65-5.03) M/mm3 Hgb 8.9 L (11.8-15.2) gm/dl Hct 26.3 L (35.5-45.6) % Plt Count 256 (140-440) K/mm3 Comprehensive Metabolic Panel 0207/19/19 07/20/19 Range/Units 13:55 19:44 05:47 Sodium 141 138 141 (137-145) mmol/L Potassium 2.8 L* 3.8 D 3.7 (3.6-5.0) mmol/L Chloride 113.1 H 101.7 103.6 (98-107) mmol/L Carbon Dioxide 16 L 22 22 (22-30) mmol/L BUN 8 L 11 8 L (9-20) mg/dL Creatinine 0.6 L 0.8 0.5 L (0.8-1.5) mg/dL Glucose TNR 116 H 104 H Calcium 6.0 L D 8.7 D 8.9 (8.4-10.2) mg/dL AST 51 H (5-40) units/L ALT 57 H (7-56) units/L Alkaline Phosphatase 224 H (35-129) units/L Total Protein 6.9 (6.3-8.2) g/dL Albumin 3.1 L (3.9-5) g/dL
[2019-07-20] MEDS: AZITHROMYCIN 500 MG in SODIUM CHLORIDE 0.9% 250ML 250 ML IV SCH (12:05)
--- NOTE | 2019-07-20 14:40 | Progress Note ---
Assessment and Plan Cultures: 07/11/2019 urine cultures: negative 07/11/2019 blood cultures: negative 07/11/2019 sputum cultures: negative A&P: 48 yo M PMHx sickle cell disease, hepatitis C admitted with bilateral pneumonia #Acute sepsis: present with fevers and leukocytosis. Secondary to bilateral pneumonia #Bilateral pneumonia: Appears to be improving on CXR. Pneumonia and acute chest syndrome clinically indistinguishable and treated the same. Has completed 9 days of empiric azithromycin and ceftriaxone. Has stop date for tomorrow. 10 days is likely sufficient. Has persistent fevers, howeve can be secondary to pain crisis experienced by the patient. Ordered procalcitonin for the AM. #Sickle cell disease: ok for hydroxurea if required by hematology. #Hepatitis C: positive antibody. PCR already ordered. Had previous treatment with ribavirin/pegylated interferon. PCR should be negative. Recommendations: - ceftriaxone and azithromycin timed out. - ordered procalcitonin for AM - mildly elevated, not indicative of severe infection. - follow up hepatitis C PCR - recommend outpatient treatment of hepatitis C if positive viral load. - ok for discharge from infectious disease perspective. - follow up in my clinic within 2 weeks of discharge. Thank you for the consult, will follow. Paris Lake MD [facility] ([facility]) M: [phone] O: [phone] F: [phone] Subjective Date of service: 07/20/19 Principal diagnosis: anemia Interval history: Persistent cough, intermittent fevers. Objective - Exam Narrative Exam: Physical Exam: Constitutional: Alert, cooperative. No acute distress Head, Ears, Nose: Normocephalic, atraumatic. External ears, nose normal Oral: dentition fair, no thrush Cardiovascular: S1, S2 normal. Respiratory: B/L crackles. GI: Soft, non-tender; bowel sounds normal. No peritoneal signs. Musculoskeletal: No pedal edema, no cyanosis. Skin: No rash or abscess Hem/Lymphatic: No palpable cervical or supraclavicular nodes. No lymphangitis Psych: Mood ok. Affect normal Neurological: Awake, alert, oriented. No gross abnormality - Constitutional Vitals: Vital Signs Temp Pulse Resp BP Pulse Ox 99.3 F 101 H 15 140/87 98 07/20/19 07:57 07/20/19 10:00 07/20/19 10:00 07/20/19 09:53 07/20/19 10:00 Temperature -Last 24 Hours Temperature 99.3 F Temperature 97.9 F Temperature 98.3 F Temperature 102.0 F Temperature 100.7 F - Labs CBC & Chem 7: 07/20/19 05:47 07/20/19 05:47 Labs: Abnormal lab results 07/17/19 07/19/19 07/19/19 Range/Units 07:51 13:55 15:44 WBC (4.5-11.0) K/mm3 RBC (3.65-5.03) M/mm3 Hgb (11.8-15.2) gm/dl Hct (35.5-45.6) % RDW (13.2-15.2) % Nucleated RBC % (0.0-0.9) % Seg Neutrophils # Man (1.8-7.7) K/mm3 Haptoglobin 9 L (43-212) mg/dL Potassium 2.8 L* (3.6-5.0) mmol/L Chloride 113.1 H (98-107) mmol/L Carbon Dioxide 16 L (22-30) mmol/L BUN 8 L (9-20) mg/dL Creatinine 0.6 L (0.8-1.5) mg/dL Glucose (75-100) mg/dL POC Glucose 118 H (70-105) Calcium 6.0 L D (8.4-10.2) mg/dL Magnesium 1.10 L (1.7-2.3) mg/dL Total Bilirubin (0.1-1.2) mg/dL AST (5-40) units/L ALT (7-56) units/L Alkaline Phosphatase (35-129) units/L Albumin (3.9-5) g/dL 07/19/19 07/20/19 07/20/19 Range/Units 19:44 05:47 05:47 WBC 11.1 H (4.5-11.0) K/mm3 RBC 3.12 L (3.65-5.03) M/mm3 Hgb 8.9 L (11.8-15.2) gm/dl Hct 26.3 L (35.5-45.6) % RDW 18.4 H (13.2-15.2) % Nucleated RBC % 134.0 H (0.0-0.9) % Seg Neutrophils # Man 9.0 H (1.8-7.7) K/mm3 Haptoglobin (43-212) mg/dL Potassium (3.6-5.0) mmol/L Chloride (98-107) mmol/L Carbon Dioxide (22-30) mmol/L BUN 8 L (9-20) mg/dL Creatinine 0.5 L (0.8-1.5) mg/dL Glucose 116 H 104 H (75-100) mg/dL POC Glucose (70-105) Calcium (8.4-10.2) mg/dL Magnesium (1.7-2.3) mg/dL Total Bilirubin 1.40 H (0.1-1.2) mg/dL AST 51 H (5-40) units/L ALT 57 H (7-56) units/L Alkaline Phosphatase 224 H (35-129) units/L Albumin 3.1 L (3.9-5) g/dL
[2019-07-21 09:00] LABS: Hemoglobin A2 Prime SEE SCANNED RESULT; Hemoglobin Barts SEE SCANNED RESULT; Hemoglobin E SEE SCANNED RESULT; Hemoglobin G SEE SCANNED RESULT; Hemoglobin Lepore SEE SCANNED RESULT; Hemoglobin O-Arab SEE SCANNED RESULT; IEF Confirm SEE SCANNED RESULT; Interpretation SEE SCANNED RESULT; Sickle Solubility Test SEE SCANNED RESULT
== END 2019-07-20 14:41 | disposition home or self-care (01) | DRG 871 ==
LOC: ED 09:33 → 4A 14:59
PROVIDERS: ADMIT Internal Medicine; ATTEND Internal Medicine
PROC: 4A033R1 Measurement of Arterial Saturation, Peripheral, Percutaneous Approach (ICD-10-PCS; 2019-07-11)
PROC: 30233N1 Transfusion of Nonautologous Red Blood Cells into Peripheral Vein, Percutaneous Approach (ICD-10-PCS; principal; 2019-07-18)
DX: A41.9 Sepsis, unspecified organism (principal); J18.9 Pneumonia, unspecified organism; E72.20 Disorder of urea cycle metabolism, unspecified; E44.1 Mild protein-calorie malnutrition; R07.1 Chest pain on breathing; B19.20 Unspecified viral hepatitis C without hepatic coma; D57.1 Sickle-cell disease without crisis; D64.9 Anemia, unspecified; D56.3 Thalassemia minor; D69.6 Thrombocytopenia, unspecified; I10 Essential (primary) hypertension; R74.0 Nonspecific elevation of levels of transaminase and lactic acid dehydrogenase [LDH]; E87.6 Hypokalemia; E83.42 Hypomagnesemia; Z82.49 Family history of ischemic heart disease and other diseases of the circulatory system; Z90.49 Acquired absence of other specified parts of digestive tract; Z79.899 Other long term (current) drug therapy; Z68.21 Body mass index [BMI] 21.0-21.9, adult
CPT/HCPCS: 36415; 36600; 71045; 71046; 71260; 76700; 80048; 80053; 80061; 80074; 80076; 80307; 81001; 82140; 82607; 82728; 82747; 82803; 82962; 83010; 83550; 83615; 83735; 84132; 84145; 84484; 85007; 85014; 85018; 85025; 85027; 85045; 85610; 86689; 86850; 86900; 86901; 86920; 87040; 87070; 87086; 87205; 87400; 87517; 93005; 93010; 93306; 94640; 94760; G0378; C9113; J0360; J0456; J0696; J1170; J1200; J2270; J3370; J3475; J3480; J7030; J7040; J7042; J7050; P9016; Q9967